=== PATIENT | female | born 1950 | race Caucasian/White ===

== ENCOUNTER 2017-02-12 08:23 | Inpatient (IN) | payer BC, MEDICARE ==
[~2017-02-12] VITALS: Ht 172.7 cm; Wt 110.0 kg
[~2017-02-12 08:23] MED LIST: ASPI-535; ATOR10TA23; CARB200T70; CELE200C; ESOM20CA; LEVO175T2; OXYB10TA; SOT120; TRAZ300T2; TRAZODONE
[2017-02-12] MEDS ORDERED: ONDANSETRON 4 MG INJ IV STA ×4 (08:27→12:45)
[2017-02-12] MEDS ORDERED: morphine 2 MG INJ IV STA ×3 (08:27→12:29)
[2017-02-12 08:55] LABS: ADD SCAN DIFF NO
[2017-02-12 08:59] LABS: BASOPHIL # 0.1 10^3/ul (0.0-0.1); BASOPHILS % 1.3 % (0.0-2.0); EOSINOPHILS # 0.2 10^3/ul (0.0-0.5); EOSINOPHILS % 4.4 % (0.0-7.0); HEMATOCRIT 38.3 % (37.0-47.0); HEMOGLOBIN 12.8 g/dl (12.0-16.0); LYMPHOCYTES % 21.4 % (15.0-51.0); MEAN CORPUSCULAR HEMOGLOBIN 32.6 pg (29.0-33.0); MEAN CORPUSCULAR HGB CONC 33.4 g/dl (32.0-37.0); MEAN CORPUSCULAR VOLUME 97.5 fl (82.0-101.0); MEAN PLATELET VOLUME 9.4 fl (7.4-10.4); MONOCYTE # 0.5 10^3/ul (0.3-0.9); MONOCYTES % 9.9 % (0.0-11.0); NEUTROPHIL # 2.9 10^3/ul (1.6-7.5); NEUTROPHILS % 62.8 % (39.0-77.0); PLATELET COUNT 219 10^3/UL (140-415); RED BLOOD COUNT 3.93 10^6/ul (4.20-5.40); RED CELL DISTRIBUTION WIDTH 12.7 % (11.5-14.5); WHITE BLOOD COUNT 4.5 10^3/ul (4.8-10.8)
[2017-02-12 09:12] LABS: INR 1.05; PROTIME 13.7 Sec (12.2-14.2); PT RATIO 1.1
[2017-02-12 09:13] LABS: PARTIAL THROMBOPLASTIN TIME 37.7 Sec (25.0-35.0)
[2017-02-12 09:23] LABS: ALBUMIN 3.9 g/dl (3.3-4.9); ALBUMIN/GLOBULIN RATIO 1.39; BILIRUBIN,INDIRECT 0.1 mg/dl (0-1.1); BILIRUBIN,TOTAL 0.1 mg/dl (0.2-1.3); CALCIUM 9.1 mg/dl (8.4-10.2); CREATININE 0.89 mg/dl (0.44-1.00); POTASSIUM 4.4 mmol/L (3.5-5.1); TOTAL PROTEIN 6.7 g/dl (6.1-8.1)
--- NOTE | 2017-02-12 09:36 | ERA ---
ER Documentation Chief Complaint Date/Time DATE: 02/12/17 TIME: 09:25 Chief Complaint Pt BIB RA with R ankle swelling, pain and difformity after GLF. HPI This is a 66-year-old female that was brought into the emergency department by EMS after she had a mechanical ground-level trip and fall just prior to arrival. The patient stated she slipped on her linoleum floor on a paper urination past for her dog. The patient states she did hit her head but did not lose consciousness. She fell on inverted right foot and is complaining of a significant amount of right lower extremity pain. The pain is 10 out of 10 in intensity. She has a previous ORIF of her right tibia. Her tetanus toxoid is up-to-date. She denies any neck pain. She has no numbness or tingling of her upper or lower extremities. She has had bilateral knee replacement several years prior to arrival. She was unable to bear weight on the right lower extremity after the fall. ROS All systems reviewed and are negative except as per history of present illness. Medications Home Meds Reported Medications Mirabegron (Myrbetriq) 50 Mg Tab.er.24h, 50 MG PO DAILY, TAB PT WILL BRING OWN MED 02/12/17 Lisinopril* (Lisinopril*) 20 Mg Tablet, 20 MG PO DAILY Y for ELEVATED BLOOD PRESSURE, #30 TAB IF BP IS OVER 140 02/12/17 Trazodone Hcl* (Trazodone Hcl*) 300 Mg Tablet, 300 MG PO QHS, #30 TAB 02/12/17 Sotalol Hcl* (Sotalol Hcl*) 160 Mg Tablet, 160 MG PO BID, TAB 11AM AND 11PM 02/12/17 Levothyroxine Sodium* (Synthroid*) 175 Mcg Tablet, 175 MCG PO BEFORE BREAKFAST, #30 TAB PT WANTS SYNTHROID 02/12/17 Esomeprazole Mag Trihydrate (Nexium) 20 Mg Capsule.dr, 20 MG PO DAILY, #30 CAP 02/12/17 Celecoxib* (Celebrex*) 200 Mg Capsule, 200 MG PO DAILY, CAP 02/12/17 Carbamazepine* (Carbamazepine* XR) 400 Mg Tab.er.12h, 400 MG PO Q12, #60 TAB.SA 02/12/17 Atorvastatin Calcium (Atorvastatin Calcium) 10 Mg Tablet, 10 MG PO QHS, #30 TAB 02/12/17 Discontinued Reported Medications [Trazodone] No Conflict Check 01/16/10 Trazodone Hcl* (Desyrel*) 300 Mg Tablet 01/16/10 Esomeprazole Mag Trihydrate (Nexium) 20 Mg Capsule. 01/16/10 Levothyroxine Sodium* (Synthroid*) 175 Mcg Tablet 01/16/10 Celecoxib* (Celebrex*) 200 Mg Capsule 01/16/10 Oxybutynin Chloride* (Ditropan* XL) 10 Mg/Bottle Tab.osm.24 01/16/10 Atorvastatin (Lipitor) 10 Mg Tablet 01/16/10 Aspirin Ec (Aspir 81) 81 Mg Tablet. 01/16/10 Carbamazepine* (Tegretol Xr*) 200 Mg Tab.sr.12h 01/16/10 Sotalol Hcl (Sotalol) 120 Mg Tablet 01/16/10 Allergies Allergies: Coded Allergies: heparin (Verified Allergy, Intermediate, hives, 02/12/17) latex (Verified Allergy, Mild, 02/12/17) PMhx/Soc History of Surgery: Yes (NOSE , PACEMAKER, VAHID KNEES) Anesthesia Reaction: No Hx Neurological Disorder: No Hx Respiratory Disorders: No Hx Cardiac Disorders: Yes (IRREGULAR HEARTBEAT,PACE MAKER) Hx Psychiatric Problems: No Hx Miscellaneous Medical Probl: Yes (osteoporosis) Hx Alcohol Use: Yes (socially) Hx Substance Use: No Hx Tobacco Use: No Smoking Status: Never smoker Physical Exam Vitals Vital Signs Date Time Temp Pulse Resp B/P Pulse Ox O2 Delivery O2 Flow Rate FiO2 02/12/17 13:23 98.2 77 18 141/96 100 Room Air 02/12/17 11:37 98.5 77 16 157/110 100 Room Air 02/12/17 08:30 98.4 77 18 185/115 100 Physical Exam Constitutional:Well-developed. Well-nourished. HEENT:Normocephalic. Atraumatic.Pupils were equal round reactive to light. Moist mucous membranes.No tonsillar exudates. Left scalp hematoma on the temporal region. Neck: No nuchal rigidity. No lymphadenopathy. No posterior cervical spine tenderness or step-offs. Respiratory: Not using accessory muscles of respiration.Lungs were clear to auscultation bilaterally. No rhonchi. No rales. No wheezing. Cardiovascular: Regular rate regular rhythm.No murmurs. No rubs were appreciated.S1, S2 normal. Distal pulses are palpable 2+ bilaterally. GI: Abdomen was soft. Nontender. Non Distended. No pulsatile abdominal masses or bruits. No rebound. No guarding. Bowel sounds were present and normal. Muscle skeletal: Full range of motion of the upper extremities bilaterally. Significant soft tissue swelling over the right medial malleolus with superficial abrasion. Ecchymosis around the right medial malleolus with positive tenderness. Lower extremities are equal length and symmetrical with no internal/external rotation no tenderness over the right fibular head. No midfoot tenderness on the right. No tenderness over the base of the fifth metatarsal on the right Skin: No petechia, no purpura. No lesions on the palms or the soles of the feet. No maculopapular rash. NEURO: Patient was alert, awake, orientated x3.No facial droop. Gait not observed as patient was unable to ambulate due to lower extremity injury.Speech had regular rate and rhythm. No focal neurological deficits. Result Diagram: 02/12/17 0845 02/12/17 0845 Results 24 hrs Laboratory Tests Test 02/12/17 08:45 White Blood Count 4.510^3/ul Red Blood Count 3.9310^6/ul Hemoglobin 12.8g/dl Hematocrit 38.3% Mean Corpuscular Volume 97.5fl Mean Corpuscular Hemoglobin 32.6pg Mean Corpuscular Hemoglobin Concent 33.4g/dl Red Cell Distribution Width 12.7% Platelet Count 37887^3/UL Mean Platelet Volume 9.4fl Neutrophils % 62.8% Lymphocytes % 21.4% Monocytes % 9.9% Eosinophils % 4.4% Basophils % 1.3% Nucleated Red Blood Cells % 0.0/100WBC Neutrophils # 2.910^3/ul Lymphocytes # 1.010^3/ul Monocytes # 0.510^3/ul Eosinophils # 0.210^3/ul Basophils # 0.110^3/ul Nucleated Red Blood Cells # 0.010^3/ul Prothrombin Time 13.7Sec Prothrombin Time Ratio 1.1 INR International Normalized Ratio 1.05 Activated Partial Thromboplast Time 37.7Sec Sodium Level 139mmol/L Potassium Level 4.4mmol/L Chloride Level 99mmol/L Carbon Dioxide Level 27mmol/L Anion Gap 17 Blood Urea Nitrogen 22mg/dl Creatinine 0.89mg/dl Glucose Level 95mg/dl Calcium Level 9.1mg/dl Total Bilirubin 0.1mg/dl Direct Bilirubin 0.00mg/dl Indirect Bilirubin 0.1mg/dl Aspartate Amino Transf (AST/SGOT) 19IU/L Alanine Aminotransferase (ALT/SGPT) 28IU/L Alkaline Phosphatase 57IU/L Total Protein 6.7g/dl Albumin 3.9g/dl Globulin 2.80g/dl Albumin/Globulin Ratio 1.39 Current Medications Medications (Trade) Dose Ordered Sig/Kurtis Route PRN Reason Start Time Stop Time Status Last Admin Dose Admin Morphine Sulfate (morphine) 2 mg ONCE STAT IV 02/12/17 08:27 02/12/17 08:31 DC 02/12/17 08:46 Ondansetron HCl (Zofran Inj) 4 mg ONCE STAT IV 02/12/17 08:27 02/12/17 08:31 DC 02/12/17 08:46 Clonidine (Catapres) 0.1 mg ONCE ONCE PO 02/12/17 10:30 02/12/17 10:35 DC 02/12/17 10:48 Morphine Sulfate (morphine) 2 mg ONCE STAT IV 02/12/17 10:37 02/12/17 10:42 DC 02/12/17 10:47 Ondansetron HCl (Zofran Inj) 4 mg ONCE STAT IV 02/12/17 10:37 02/12/17 10:42 DC 02/12/17 10:47 Sotalol HCl (Betapace) 160 mg ONCE ONCE PO 02/12/17 11:00 02/12/17 11:01 Cancel Lidocaine (Lidocaine 2% Urojet) 20 ml ONCE ONCE MM 02/12/17 11:00 02/12/17 11:01 DC 02/12/17 11:00 Morphine Sulfate (morphine) 2 mg ONCE STAT IV 02/12/17 12:29 02/12/17 12:31 DC 02/12/17 12:34 Ondansetron HCl (Zofran Inj) 4 mg ONCE STAT IV 02/12/17 12:29 02/12/17 12:31 DC Hydromorphone HCl (Dilaudid) 1 mg ONCE STAT IV 02/12/17 12:45 02/12/17 12:46 DC 02/12/17 13:35 Ondansetron HCl (Zofran Inj) 4 mg ONCE STAT IV 02/12/17 12:45 02/12/17 12:46 DC 02/12/17 13:35 Ondansetron HCl (Zofran Inj) 4 mg ER BRIDGE PRN IV NAUSEA AND/OR VOMITING 02/12/17 13:00 02/13/17 12:59 Acetaminophen (Tylenol Tab) 650 mg ER BRIDGE PRN PO MILD PAIN/FEVER 02/12/17 13:00 02/13/17 12:59 Ondansetron HCl (Zofran Inj) 4 mg BRIDGE ORDER PRN IV NAUSEA AND/OR VOMITING 02/12/17 13:00 02/13/17 12:59 Acetaminophen (Tylenol Tab) 650 mg ER BRIDGE PRN PO MILD PAIN/FEVER 02/12/17 13:00 02/13/17 12:59 Sotalol HCl (Betapace) 160 mg ONCE ONCE PO 02/12/17 13:00 02/12/17 13:01 DC 02/12/17 13:23 Procedures/MDM This patient presented to the emergency department after she had a ground-level trip and fall. The patient was immediately placed in a monitoring analyst continuous pulse oximetry and IV access was established by nursing staff. I obtained radiographic imaging the patient's tibia and fibula as well as three- view radiographs of the patient's ankle reviewed by myself the radiologist which indicated the followin. Comminuted acute oblique fracture seen involve the distal third of the right fibular shaft superior to the compression plate and internally fixed is a healed fracture more distally. 2. Oblique fracture through base of medial malleolus distracted longitudinally by 4 mm. The patient received intravenous morphine and Zofran for analgesic control. She has a history of atrial fibrillation but was rate controlled. She indicates she takes 160 mg of sotalol twice a day and requested her medication that she had not taken anything prior to arrival. This was provided in the emergency department for the patient. The patient was unable to ambulate given the severity of her symptoms I did feel required admission for definitive treatment with an orthopedic surgeon. She has seen Dr. Jay Yang in the past and therefore I have placed a call to him to see if he would be willing to be consulted. He kindly stated that he would be willing to see the patient in his office in the next 48 hours. I informed the patient of this and she attempted to ambulate but was unable to do this. She stated the pain was too intense and it was 10 out of 10 in intensity and therefore was given IV Dilaudid. She had a short leg posterior cast placed and afterwards reevaluated by myself and there was no evidence of compartment syndrome and she was neurovascularly intact. Given that the patient had significant pain with inability to ambulate I re-phoned Dr. Rowe office and spoke with the physician assistant toddler teacher. She returned my call promptly and stated that the patient is to be admitted to [facility] under the care of Dr. Quintanilla for definitive treatment. 12 Lead EKG tracing ordered and reviewed by myself showed: Normal sinus rhythm of 76 bpm and no arrhythmia. MS interval prolonged at 232 ms and always consistent with first-degree AV block QRS duration normal. No ST segment elevation No ST segment depression. No changes consistent with acute ischemia. Departure Diagnosis: Primary Impression: Head injury, acute, without loss of consciousness Qualified Code: S09.90XA - Head injury, acute, without loss of consciousness, initial encounter Additional Impression: Fracture of ankle, right, closed Qualified Code: S82.891A - Fracture of ankle, right, closed, initial encounter Condition: Serious SAMAN BRITO Feb 12, 2017 09:35
--- NOTE | 2017-02-12 10:20 | RADRPT ---
PROCEDURE: XR Tibia and Fibula. CLINICAL INDICATION: Status post fall. TECHNIQUE: Two views of the right tibia and fibula are available for review. COMPARISON: None available FINDINGS: There is a mildly displaced oblique fracture of the distal right fibular diaphysis. Fixation plate and screws are seen along the distal fibula and lateral malleolus. The tibia appears intact. Fixat ion hardware is noted in the medial femoral condyle. Soft tissues are within normal limits. . IMPRESSION: 1. Mildly displaced fracture of the right distal fibula. 2. Fixation hardware at the lateral malleolus and medial femoral condyle.. RPTAT: AA .Stephan Zuniga MD, MD Date Time Electronically viewed and signed by .Stephan Zuniga MD, MD on 02/12/2017 10:19 .L/
--- NOTE | 2017-02-12 10:24 | RADRPT ---
PROCEDURE: XR Right Ankle CLINICAL INDICATION: Fall TECHNIQUE: Standard 3 view radiographs were submitted. COMPARISON: None FINDINGS: Osseous structures: A compressions plate and screws are seen internally fixing a healed distal fibul ar fracture. Superior to the compression plate there is a comminuted oblique fracture involving the distal third of the right fibular shaft with the main distal fragment displaced ventrally by approx imate 4 mm and with an intermediate fragment displaced dorsally by approximate 2 mm. There is an ob lique fracture through the base of the medial malleolus with the medial malleolar fragment distracte d longitudinally by approximately 4 mm. Joint spaces: Well maintained with no significant erosions or spurring evident. Soft tissues: There is diffuse soft tissue swelling. IMPRESSION: 1. Comminuted acute oblique fracture seen involve the distal third of the right fibular shaft super ior to the compression plate and internally fixed is a healed fracture more distally. 2. Oblique fracture through base of medial malleolus distracted longitudinally by 4 mm. Physician Carrington Date Time Electronically viewed and signed by Physician Carrington on 02/12/2017 10:24 /
[2017-02-12] MEDS ORDERED: SOTALOL 80 MG TAB PO ONE ×2 (11:00→13:00)
[2017-02-12] MEDS ORDERED: LIDOCAINE 2% 20 ML UROJET SYRINGE MM ONE (11:00)
[2017-02-12] MEDS ORDERED: ATOR10TA65 PO (12:04)
[2017-02-12] MEDS ORDERED: CARB400T4 PO (12:05)
[2017-02-12] MEDS ORDERED: CELE200C PO (12:05)
[2017-02-12] MEDS ORDERED: ESOM20CA PO (12:06)
[2017-02-12] MEDS ORDERED: LEVO175T2 PO (12:06)
[2017-02-12] MEDS ORDERED: SOTA160T PO (12:07)
[2017-02-12] MEDS ORDERED: TRAZ300T15 PO (12:08)
[2017-02-12] MEDS ORDERED: LISI20TA11 PO (12:08)
[2017-02-12] MEDS ORDERED: MIRA50TA PO (12:10)
[2017-02-12] MEDS ORDERED: HYDROmorphONE 1 MG/ML SYG IV STA (12:45)
[2017-02-12] MEDS ORDERED: ACETAMINOPHEN 325 MG TAB PO PRN ×2 (13:00)
[2017-02-12] MEDS ORDERED: ONDANSETRON 4 MG INJ IV PRN ×2 (13:00)
[2017-02-12 13:23] VITALS: TEMP 98.2
--- NOTE | 2017-02-12 14:23 | RADRPT ---
PROCEDURE: CT Brain without contrast. CLINICAL INDICATION: Trauma TECHNIQUE: CT scan of the brain was performed on a multidetector high-resolution CT scan. Axial im aging was obtained of the brain without contrast administration. Coronal and sagittal reformatted i mages were obtained from the axial source images. Standard CT scan of the head without contrast prot ocols were performed. The total exam CTDI equals 45.01 mGy and the total exam DLP equals 720.23 mGy-cm. One or more of the following dose reduction techniques were used: - Automated exposure control. - Adjustment of the mA and/or kV according to patient size. Use of iterative reconstruction technique. COMPARISON: None. FINDINGS: The ventricular system and peripheral CSF spaces are proportionate prominent consistent with mild to moderate generalized cerebral volume loss. There is mild periventricular deep white matter changes that is nonspecific and consistent with chronic microvascular ischemic disease. Negative for intra cranial masses hemorrhages or midline shift. The preciado-white matter junction is unremarkable. Paranas al sinuses and mastoids are unremarkable. The bones and calvarium are intact. IMPRESSION: 1. No evidence intracranial masses hemorrhages midline shift. 2. Mild to moderate generalized cerebral volume loss and mild nonspecific chronic microvascular isc hemic disease. RPTAT:AAJJ Physician Alton Date Time Electronically viewed and signed by Physician Alton on 02/12/2017 14:22 /
[2017-02-12] MEDS ORDERED: HYDROmorphONE 0.2 MG/ML PCA IV SCH (15:30)
[2017-02-12] MEDS ORDERED: SOD CHLORIDE 0.9% 1,000 ML IV SCH (16:00)
[2017-02-12 16:49] VITALS: BP 172/86; RESP 18; Ht 172.7 cm; Wt 110.0 kg
[2017-02-12] MEDS ORDERED: CEFAZOLIN 2 GM/50 ML (PMX) 50 ML IVPB STA (17:01)
--- NOTE | 2017-02-12 18:42 | CONS ---
Date/Time of Note Date/Time of Note DATE: 02/12/17 TIME: 18:10 Assessment/Plan Assessment/Plan Chief Complaint/Hosp Course Impression: 1. Ground-level fall today with right ankle fracture. The patient has a distal fracture of the right fibula and of the medial malleolus. She has a previous history of an ORIF of the right tibia. 2. Atrial fibrillation, now in sinus rhythm 3. Abnormal EKG with inverted T waves. Her EKG is unchanged from an EKG of February 08, 2009 which the patient showed me tonight. 4. Hypertension 5. Cardiac pacemaker 6. Hyperlipidemia 7. Hypothyroidism on replacement therapy 8. Generalized anxiety disorder 9. History of urinary incontinence 10. Osteoporosis 11. Multiple orthopedic surgeries in the past on both lower extremities. 12. Nausea, will change to morphine for pain, which she has tolerated previously Plan: 1. Resume some routine medications 2. Cardiology consultation called. 3. I will follow the patient along with you Problems: Consultation Date/Type/Reason Admit Date/Time Feb 12, 2017 at 12:48 Date of Consultation: Feb 12, 2017 Type of Consultation: medicine Reason for Consultation Atrial fibrillation, hypertension, pacemaker, hyperlipidemia, generalized anxiety disorder. Referring Provider: JAY PEPE MD I am seeing this patient today at the request of Dr. Jay Pepe . This 66- year-old female was admitted through the emergency room today after having a ground-level fall at home and fracturing her right ankle. The patient slipped and fell on a paper on the floor that her dog used for urination. The patient did hit her head but did not lose consciousness. She fell on an inverted right foot and had pain immediately. An x-ray in the emergency room did show that she had a fracture of the right distal fibula and the right medial malleolus. The patient has a history of a right tibial fracture status post ORIF. The patient is awake and alert at this time. She is able to give me a complete history including past medical history, current medication. The patient complains of nausea. She denies any chest pain or shortness of breath. Eyes: no complaints ENT: no complaints Respiratory: no complaints Cardiovascular: no complaints Gastrointestinal: nausea Genitourinary: no complaints Musculoskeletal: bone/joint pain Skin: no complaints Neurologic: dizziness Past Medical History Past medical history is remarkable for the following: Hypertension, atrial fibrillation, cardiac pacemaker, hyperlipidemia, generalized anxiety disorder , urinary incontinence, gastroesophageal reflux disease, osteoporosis Past Surgical History Her past surgical history is remarkable for the following bladder surgery 5, skin cancer over left eye, nasal surgery, spinal injury with repair, tonsillectomy, right ankle fracture with ORIF , left ankle surgery , bilateral kneecaps removed Family History Significant Family History: no pertinent family hx Social History Alcohol Use: occasionally Smoking Status: Never smoker Drug Use: none Exam/Review of Systems Vital Signs Vitals Vital Signs Date Time Temp Pulse Resp B/P Pulse Ox O2 Delivery O2 Flow Rate FiO2 02/12/17 13:23 98.2 77 18 141/96 100 Room Air Exam She has a large splint on her right ankle with an Shakir bandage. Constitutional: alert, obese Psych: nl mood/affect, no complaints Head: atraumatic, normocephalic Eyes: EOMI, PERRL, nl conjunctiva, nl lids ENMT: nl external ears & nose, nl lips & teeth, nl nasal mucosa & septum Neck: non-tender, supple Respiratory: clear to auscultation, normal air movement Cardiovascular: regular rate and rhythm Gastrointestinal: non-tender, soft Neurological: TALENT ACQUISITION DIRECTOR II-XII intact, nl mental status, nl speech, nl strength Results Result Diagram: 02/12/17 0845 02/12/17 0845 Results 24 hrs Laboratory Tests Test 02/12/17 08:45 White Blood Count 4.5 L Red Blood Count 3.93 L Hemoglobin 12.8 Hematocrit 38.3 Mean Corpuscular Volume 97.5 Mean Corpuscular Hemoglobin 32.6 Mean Corpuscular Hemoglobin Concent 33.4 Red Cell Distribution Width 12.7 Platelet Count 219 Mean Platelet Volume 9.4 Neutrophils % 62.8 Lymphocytes % 21.4 Monocytes % 9.9 Eosinophils % 4.4 Basophils % 1.3 Nucleated Red Blood Cells % 0.0 Neutrophils # 2.9 Lymphocytes # 1.0 Monocytes # 0.5 Eosinophils # 0.2 Basophils # 0.1 Nucleated Red Blood Cells # 0.0 Prothrombin Time 13.7 Prothrombin Time Ratio 1.1 INR International Normalized Ratio 1.05 Activated Partial Thromboplast Time 37.7 H Sodium Level 139 Potassium Level 4.4 Chloride Level 99 Carbon Dioxide Level 27 Anion Gap 17 H Blood Urea Nitrogen 22 H Creatinine 0.89 Glucose Level 95 Calcium Level 9.1 Total Bilirubin 0.1 L Direct Bilirubin 0.00 Indirect Bilirubin 0.1 Aspartate Amino Transf (AST/SGOT) 19 Alanine Aminotransferase (ALT/SGPT) 28 Alkaline Phosphatase 57 Total Protein 6.7 Albumin 3.9 Globulin 2.80 Albumin/Globulin Ratio 1.39 Medications Medications Current Medications Hydromorphone HCl (Dilaudid ROLLWAY WORKER) MG/HR CONTINUOUS RATE ... Q4PCA IV Last administered on 02/12/17 16:21; Admin Dose 6 MG; Start 02/12/17 at 15:30 Oxycodone/ Acetaminophen (Percocet (5/ 325)) 1 tab Q4H PRN PO PAIN; Start 02/12 at 15:30 Oxycodone/ Acetaminophen 2 tab 2 tab Q4H PRN PO PAIN; Start 02/12/17 at 15:30 Sodium Chloride (NS) 1,000 ml @ 30 mls/hr Q24H IV Last administered on 16:16; Admin Dose 30 MLS/HR; Start 02/12/17 at 16:00 Atorvastatin Calcium (Lipitor) 10 mg QHS PO ; Start 02/12/17 at 21:00; Status UNV Carbamazepine (Tegretol Xr) 400 mg Q12 PO ; Start 02/12/17 at 21:00; Status UNV Celecoxib (Celebrex) 200 mg DAILY PO ; Start 02/13/17 at 09:00; Status UNV Sotalol HCl (Betapace) 160 mg BID PO ; Start 02/12/17 at 21:00; Status UNV Trazodone HCl (Desyrel) 300 mg QHS PO ; Start 02/12/17 at 21:00; Status UNV Miscellaneous Information 20 mg DAILY PO ; Start 02/13/17 at 09:00; Status UNV CHUCK MCCRACKEN MD Feb 12, 2017 18:21
--- NOTE | 2017-02-12 19:00 | RADRPT ---
PROCEDURE: XR Right Ankle. CLINICAL INDICATION: Right ankle pain. Fracture. Post reduction. TECHNIQUE: 3 views. Frontal, lateral, and oblique. COMPARISON: Prior study done earlier the same day. FINDINGS: As seen previously, there is a lateral plate and multiple screws transfixing the distal fibula. Sup erior to the plate, there is an acute oblique nondisplaced fracture of the fibula. There is also an acute transverse fracture of the medial malleolus with overlying soft tissue swelling and minimal d isplacement. There is no other fracture or dislocation. Bone detail is obscured by the overlying cast. There is no lytic or blastic lesion. IMPRESSION: 1. Post reduction images with improved alignment. 2. Bone detail obscured by the cast. RPTAT: QQ .Andrea Lopez MD, Date Time Electronically viewed and signed by .Andrea Lopez MD, on 02/12/2017 19:00 .R/
[2017-02-12 19:40] VITALS: BP 183/86; RESP 20
[2017-02-12] MEDS: DEXTROSE 5%-0.45% NACL 1,000 ML IV SCH (19:41)
[2017-02-12] MEDS: morphine 1 MG/ML 30 ML (PCA) IV SCH (19:47)
[2017-02-12] MEDS: carBAMAZepine (XR) 100 MG TABSR PO SCH (20:28)
[2017-02-12] MEDS ORDERED: carBAMAZepine (XR) 200 MG TABSR PO SCH (21:00)
[2017-02-12] MEDS: traZODone 100 MG TAB PO SCH (21:00)
--- NOTE | 2017-02-12 21:26 | RADRPT ---
PROCEDURE: XR Chest. CLINICAL INDICATION: Cough. TECHNIQUE: Single frontal view. COMPARISON: 12/07/2012. FINDINGS: The lungs are clear. The heart is enlarged. There is a dual lead left-sided permanent pacemaker. There is no pleural effusion. There is no pneumothorax. IMPRESSION: 1. Cardiomegaly. 2. Permanent pacemaker. 3. Clear lungs. RPTAT: QQ .Andrea Lopez MD, MD Date Time Electronically viewed and signed by .Andrea Lopez MD, on 02/12/2017 21:26 .R/
[2017-02-12] MEDS: ATORVASTATIN 10 MG TAB PO SCH (22:56)
[2017-02-12 23:00] VITALS: BP 139/83; PULSE 78
[2017-02-12] MEDS: SOTALOL 80 MG TAB PO SCH (23:00)
[2017-02-13 00:22] VITALS: BP 164/80; RESP 21
[2017-02-13 05:53] LABS: ADD SCAN DIFF NO
[2017-02-13 05:56] LABS: BASOPHILS % 0.6 % (0.0-2.0); EOSINOPHILS # 0.1 10^3/ul (0.0-0.5); EOSINOPHILS % 1.1 % (0.0-7.0); HEMATOCRIT 37.1 % (37.0-47.0); HEMOGLOBIN 12.3 g/dl (12.0-16.0); LYMPHOCYTES # 1.3 10^3/ul (0.8-2.9); LYMPHOCYTES % 20.7 % (15.0-51.0); MEAN CORPUSCULAR HEMOGLOBIN 32.5 pg (29.0-33.0); MEAN CORPUSCULAR HGB CONC 33.2 g/dl (32.0-37.0); MEAN CORPUSCULAR VOLUME 97.9 fl (82.0-101.0); MEAN PLATELET VOLUME 9.9 fl (7.4-10.4); MONOCYTE # 0.9 10^3/ul (0.3-0.9); MONOCYTES % 14.4 % (0.0-11.0); NEUTROPHILS % 62.9 % (39.0-77.0); PLATELET COUNT 205 10^3/UL (140-415); RED BLOOD COUNT 3.79 10^6/ul (4.20-5.40); RED CELL DISTRIBUTION WIDTH 12.7 % (11.5-14.5); WHITE BLOOD COUNT 6.3 10^3/ul (4.8-10.8)
[2017-02-13] MEDS: LEVOTHYROXINE 175 MCG TAB PO SCH (06:11)
[2017-02-13] MEDS: PANTOPRAZOLE (EC) 40 MG TAB PO SCH (06:11)
[2017-02-13 06:18] LABS: ALBUMIN 3.5 g/dl (3.3-4.9); ALBUMIN/GLOBULIN RATIO 1.25; BILIRUBIN,INDIRECT 0.3 mg/dl (0-1.1); BILIRUBIN,TOTAL 0.3 mg/dl (0.2-1.3); CALCIUM 9.4 mg/dl (8.4-10.2); CREATININE 0.72 mg/dl (0.44-1.00); MAGNESIUM 1.7 mg/dl (1.7-2.5); POTASSIUM 4.2 mmol/L (3.5-5.1); TOTAL PROTEIN 6.3 g/dl (6.1-8.1)
--- NOTE | 2017-02-13 06:50 | PN ---
Date/Time of Note Date/Time of Note DATE: 02/13/17 TIME: 06:47 Assessment/Plan VTE Prophylaxis VTE Prophylaxis Intervention: ambulation, SCD's Lines/Catheters IV Catheter Type (from Nrs): Peripheral IV Urinary Cath still in place: No Assessment/Plan Assessment/Plan 66 F s/p fall yesterday with R bimalleolar ankle fx - PT, NWB RLE - Per patient, cast to be changed today - Likely d/c today after above with plans to return next week for skin/swelling check and surgery - DVT ppx with ambulation and scd's - reg diet Subjective 24 Hr Interval Summary Free Text/Dictation No acute issues. Exam/Review of Systems Vital Signs Vitals Vital Signs Date Time Temp Pulse Resp B/P Pulse Ox O2 Delivery O2 Flow Rate FiO2 02/13/17 00:22 98.5 76 21 164/80 98 02/12/17 16:49 Room Air Intake and Output 02/12/17 02/12/17 02/13/17 15:00 23:00 07:00 Intake Total 250 ml 1300 ml Output Total 1700 ml 2500 ml Balance -1450 ml -1200 ml Exam RLE: elevated. splint intact. DF/PF toes, wwp. sensation intact dorsal/plantar toes. Results Result Diagram: 02/13/17 0459 02/12/17 0845 Results 24 hrs Laboratory Tests Test 02/12/17 08:45 02/13/17 04:59 White Blood Count 4.5 L 6.3 # Red Blood Count 3.93 L 3.79 L Hemoglobin 12.8 12.3 Hematocrit 38.3 37.1 Mean Corpuscular Volume 97.5 97.9 Mean Corpuscular Hemoglobin 32.6 32.5 Mean Corpuscular Hemoglobin Concent 33.4 33.2 Red Cell Distribution Width 12.7 12.7 Platelet Count 219 205 Mean Platelet Volume 9.4 9.9 Neutrophils % 62.8 62.9 Lymphocytes % 21.4 20.7 Monocytes % 9.9 14.4 H Eosinophils % 4.4 1.1 Basophils % 1.3 0.6 Nucleated Red Blood Cells % 0.0 0.0 Neutrophils # 2.9 4.0 Lymphocytes # 1.0 1.3 Monocytes # 0.5 0.9 Eosinophils # 0.2 0.1 Basophils # 0.1 0.0 Nucleated Red Blood Cells # 0.0 0.0 Prothrombin Time 13.7 Prothrombin Time Ratio 1.1 INR International Normalized Ratio 1.05 Activated Partial Thromboplast Time 37.7 H Sodium Level 139 Potassium Level 4.4 Chloride Level 99 Carbon Dioxide Level 27 Anion Gap 17 H Blood Urea Nitrogen 22 H Creatinine 0.89 Glucose Level 95 Calcium Level 9.1 Total Bilirubin 0.1 L Direct Bilirubin 0.00 Indirect Bilirubin 0.1 Aspartate Amino Transf (AST/SGOT) 19 Alanine Aminotransferase (ALT/SGPT) 28 Alkaline Phosphatase 57 Total Protein 6.7 Albumin 3.9 Globulin 2.80 Albumin/Globulin Ratio 1.39 Medications Medications Current Medications Oxycodone/ Acetaminophen (Percocet (5/ 325)) 1 tab Q4H PRN PO PAIN; Start 02/12 at 15:30 Oxycodone/ Acetaminophen (Percocet (5/ 325)) 2 tab Q4H PRN PO PAIN; Start 02/12 at 15:30 Atorvastatin Calcium (Lipitor) 10 mg QHS PO Last administered on 02/12/17 22: 56; Admin Dose 10 MG; Start 02/12/17 at 21:00 Sotalol HCl (Betapace) 160 mg BID PO Last administered on 02/12/17 23:00; Admin Dose 160 MG; Start 02/12/17 at 21:00 Trazodone HCl (Desyrel) 300 mg QHS PO ; Start 02/12/17 at 21:00 Pantoprazole (Protonix Tab) 40 mg DAILY@06 PO Last administered on 02/13/17 06 :11; Admin Dose 40 MG; Start 02/13/17 at 06:00 Lisinopril (Zestril) 20 mg DAILY PO ; Start 02/13/17 at 09:00 Metoclopramide HCl (Reglan) 10 mg Q6H PRN IV NAUSEA; Start 02/12/17 at 18:30 Carbamazepine (Tegretol Xr) 400 mg Q12 PO Last administered on 02/12/17 20:28 ; Admin Dose 400 MG; Start 02/12/17 at 21:00 Morphine Sulfate MG/HR CONTINUOUS RATE 1... Q4PCA IV Last administered on 02/12 19:47; Admin Dose 30 MG; Start 02/12/17 at 19:00 Dextrose/Sodium Chloride (D5-1/2ns) 1,000 ml @ 80 mls/hr [id number] IV Last administered on 02/12/17t 19:41; Admin Dose 80 MLS/HR; Start 02/12/17 at 19:00 Clonidine (Catapres) 0.1 mg Q6H PRN PO ELEVATED BLOOD PRESSURE; Start 02/12/17 at 19:00 IFRAH SPRINGER MD Feb 13, 2017 06:50
[2017-02-13 07:11] LABS: T3 UPTAKE 40.4 % (23.5-40.5)
--- NOTE | 2017-02-13 07:52 | CONS ---
Date/Time of Note Date/Time of Note DATE: 02/13/17 TIME: 07:49 Assessment/Plan Assessment/Plan Chief Complaint/Hosp Course 1. Ground-level fall today with right ankle fracture. The patient has a distal fracture of the right fibula and of the medial malleolus. plan for surgery as outpt. denies syncope 2. PAF- not on anticoag per primary windows laptop technician, [id number] score of 3 based on female, age, htn., current nsr, denies recent symptoms 3. Abnl ekg- nsr 1st degree avb, twi inferior, lateral leads. no change from previous. obtain osh recrds 4. Hypertension 5. Cardiac pacemaker - cont home meds - anticoag per primary windows laptop technician - obtain records from primary windows laptop technician Problems: Consultation Date/Type/Reason Admit Date/Time Feb 12, 2017 at 12:48 Eyes: no complaints ENT: no complaints Respiratory: no complaints Cardiovascular: no complaints Gastrointestinal: nausea Genitourinary: no complaints Musculoskeletal: bone/joint pain Skin: no complaints Neurologic: dizziness Psychological: nl mood/affect, no complaints Social History Alcohol Use: occasionally Smoking Status: Never smoker Drug Use: none Exam/Review of Systems Vital Signs Vitals Vital Signs Date Time Temp Pulse Resp B/P Pulse Ox O2 Delivery O2 Flow Rate FiO2 02/13/17 00:22 98.5 76 21 164/80 98 02/12/17 16:49 Room Air Intake and Output 02/12/17 02/12/17 02/13/17 15:00 23:00 07:00 Intake Total 250 ml 1300 ml Output Total 1700 ml 2500 ml Balance -1450 ml -1200 ml Results Result Diagram: 02/13/17 0459 02/13/17 0458 Results 24 hrs Laboratory Tests Test 02/12/17 08:45 02/13/17 04:58 02/13/17 04:59 White Blood Count 4.5 L 6.3 # Red Blood Count 3.93 L 3.79 L Hemoglobin 12.8 12.3 Hematocrit 38.3 37.1 Mean Corpuscular Volume 97.5 97.9 Mean Corpuscular Hemoglobin 32.6 32.5 Mean Corpuscular Hemoglobin Concent 33.4 33.2 Red Cell Distribution Width 12.7 12.7 Platelet Count 219 205 Mean Platelet Volume 9.4 9.9 Neutrophils % 62.8 62.9 Lymphocytes % 21.4 20.7 Monocytes % 9.9 14.4 H Eosinophils % 4.4 1.1 Basophils % 1.3 0.6 Nucleated Red Blood Cells % 0.0 0.0 Neutrophils # 2.9 4.0 Lymphocytes # 1.0 1.3 Monocytes # 0.5 0.9 Eosinophils # 0.2 0.1 Basophils # 0.1 0.0 Nucleated Red Blood Cells # 0.0 0.0 Prothrombin Time 13.7 Prothrombin Time Ratio 1.1 INR International Normalized Ratio 1.05 Activated Partial Thromboplast Time 37.7 H Sodium Level 139 137 Potassium Level 4.4 4.2 Chloride Level 99 95 L Carbon Dioxide Level 27 30 Anion Gap 17 H 16 Blood Urea Nitrogen 22 H 16 Creatinine 0.89 0.72 Glucose Level 95 113 Calcium Level 9.1 9.4 Total Bilirubin 0.1 L 0.3 Direct Bilirubin 0.00 0.00 Indirect Bilirubin 0.1 0.3 Aspartate Amino Transf (AST/SGOT) 19 18 Alanine Aminotransferase (ALT/SGPT) 28 19 Alkaline Phosphatase 57 53 Total Protein 6.7 6.3 Albumin 3.9 3.5 Globulin 2.80 2.80 Albumin/Globulin Ratio 1.39 1.25 Magnesium Level 1.7 Free Thyroxine Index 2.06 Thyroxine (T4) 5.1 L Triiodothyronine (T3) Uptake 40.4 Parathyroid Hormone (Intact) Medications Medications Current Medications Oxycodone/ Acetaminophen (Percocet (5/ 325)) 1 tab Q4H PRN PO PAIN; Start 02/12 at 15:30 Oxycodone/ Acetaminophen (Percocet (5/ 325)) 2 tab Q4H PRN PO PAIN; Start 02/12 at 15:30 Atorvastatin Calcium (Lipitor) 10 mg QHS PO Last administered on 02/12/17 22: 56; Admin Dose 10 MG; Start 02/12/17 at 21:00 Sotalol HCl (Betapace) 160 mg BID PO Last administered on 02/12/17 23:00; Admin Dose 160 MG; Start 02/12/17 at 21:00 Trazodone HCl (Desyrel) 300 mg QHS PO ; Start 02/12/17 at 21:00 Pantoprazole (Protonix Tab) 40 mg DAILY@06 PO Last administered on 02/13/17 06 :11; Admin Dose 40 MG; Start 02/13/17 at 06:00 Lisinopril (Zestril) 20 mg DAILY PO ; Start 02/13/17 at 09:00 Metoclopramide HCl (Reglan) 10 mg Q6H PRN IV NAUSEA; Start 02/12/17 at 18:30 Carbamazepine (Tegretol Xr) 400 mg Q12 PO Last administered on 02/12/17 20:28 ; Admin Dose 400 MG; Start 02/12/17 at 21:00 Morphine Sulfate MG/HR CONTINUOUS RATE 1... Q4PCA IV Last administered on 02/12 19:47; Admin Dose 30 MG; Start 02/12/17 at 19:00 Dextrose/Sodium Chloride (D5-1/2ns) 1,000 ml @ 80 mls/hr [id number] IV Last administered on 02/12/17 19:41; Admin Dose 80 MLS/HR; Start 02/12/17 at 19:00 Clonidine (Catapres) 0.1 mg Q6H PRN PO ELEVATED BLOOD PRESSURE; Start 02/12/17 at 19:00 SAMANTHA MAURER Feb 13, 2017 07:51
[2017-02-13] MEDS: DEXTROSE 5%-0.45% NACL 1,000 ML IV SCH ×2 (08:08→19:51)
[2017-02-13 08:13] VITALS: BP 163/101; RESP 20
[2017-02-13 08:29] VITALS: BP 181/86; PULSE 76; RESP 18
[2017-02-13] MEDS: METOCLOPRAMIDE 10 MG INJ IV PRN ×2 (08:50→15:25)
[2017-02-13] MEDS: LISINOPRIL 20 MG TAB PO SCH (08:52)
[2017-02-13] MEDS: SOTALOL 80 MG TAB PO SCH ×2 (08:54→20:56)
[2017-02-13] MEDS: carBAMAZepine (XR) 100 MG TABSR PO SCH ×2 (08:57→20:56)
[2017-02-13] MEDS ORDERED: CELECOXIB 200 MG CAP PO SCH (09:00)
--- NOTE | 2017-02-13 10:22 | HP ---
DATE OF ADMISSION: 02/12/2017 CHIEF COMPLAINT: Right ankle pain. HISTORY OF PRESENT ILLNESS: The patient is a 66-year-old female well known to me with pain in her right ankle. The patient was injured when she slipped today and fell. She was brought to the [facility] emergency room. She was found to have a fracture of her right ankle. I was called. We admitted her for evaluation and treatment. Currently complains of moderate to severe pain, alleviated with her morphine B[employer] pump. The pain is all localized to the right ankle. She has no pain anywhere else. No pain in her left ankle on which I previously did an arthroscopic fusion. PAST MEDICAL HISTORY: Hypertension, hyperlipidemia, urinary dysfunction, hypothyroidism, hyperparathyroidism, acid reflux. History of atrial fibrillation, rate controlled. The patient has a pacemaker implantation. ALLERGIES: LATEX. MEDICATIONS: 1. Oxycodone. 2. Lipitor. 3. Tegretol. 4. Celebrex. 5. Betapace. 6. Desyrel. PAST SURGICAL HISTORY: Arthroscopic left ankle fusion by myself in 2012. She also previously had bilateral ankle ORIFs. She has had a femur fracture and bilateral patellectomies. FAMILY HISTORY: Noncontributory. SOCIAL HISTORY: She is . She drinks moderately. She is a nonsmoker. She lives with her family. PHYSICAL EXAMINATION: GENERAL APPEARANCE: A pleasant female, oriented x3. She was in a splint from the emergency room. VITAL SIGNS: Blood pressure 141/96, pulse 78, respirations 18. HEENT: She has no trauma to the head. Pupils are equal, round, and reactive to light. Mouth and nose are moist. NECK: Nontender. LUNGS: Clear to auscultation. HEART: Cardiac rhythm is regular. ABDOMEN: She has no GI discomfort. ORTHOPEDIC EXAM: She can move the toes well. She does have a small abrasion along the medial malleolus in the area of the fracture. She has healed scars in her ankle from previous surgery with obvious loss of motion and strength. Neurologically intact. The left ankle has healed incisions and has an arthrodesis in the left ankle. DATA: X-rays done at [facility] show a fracture of the medial malleolus. They also show she broke, superior to her previous plate, and has an oblique comminuted fracture of her fibula, fairly high up with subluxation and widening of her syndesmosis. ASSESSMENT: 1. Complex fracture dislocation of her right ankle with a fracture of the fibula above a previous plate. 2. Status post arthroscopic arthrodesis of the left ankle 2012. 3. Status post open reduction internal fixation both ankles in the past. 4. History of cardiac pacemaker in place. 5. History of hypertension. 6. History of hyperlipidemia. 7. History of hypothyroidism and hyperparathyroidism. 8. History of atrial fibrillation. PLAN: 1. A new splint was applied. We will put an even softer, more comfortable splint tomorrow. 2. Ice and elevation. 3. B[employer] pain pump. 4. Discharge planning to evaluate the patient since we are probably going to have to wait until the swelling goes down and abrasion resolves a little before doing her surgery. The patient will require open reduction internal fixation of a complex fracture dislocation of her right ankle. Blood will be drawn. Will check everything including her parathyroid and thyroid levels, vitamin D3 5. levels. Will have cardiology clearance with Dr. Becker to see her from medical standpoint. 6. History of generalized anxiety and depression. Dictated By: Jay Pepe MD /anamika/christian /Document#: [id number]
[2017-02-13 15:49] LABS: ADD UMIC YES; UR ASCORBIC ACID NEGATIVE (NEGATIVE); UR BACTERIA FEW /HPF (NONE SEEN); UR BILIRUBIN (Dip) NEGATIVE (NEGATIVE); UR BLOOD (Dip) 1+ mg/dL (NEGATIVE); UR CLARITY CLEAR (CLEAR); UR COLOR STRAW (YELLOW); UR GLUCOSE (Dip) NEGATIVE (NEGATIVE); UR KETONES (Dip) NEGATIVE (NEGATIVE); UR LEUKOCYTE ESTERASE (Dip) 3+ Leu/ul (NEGATIVE); UR NITRITE (Dip) NEGATIVE (NEGATIVE); UR RBC 6 /HPF (0-5); UR SPECIFIC GRAVITY (Dip) 1.004 (1.003-1.030); UR TOTAL PROTEIN (Dip) NEGATIVE (NEGATIVE); UR UROBILINOGEN (Dip) NEGATIVE (NEGATIVE)
[2017-02-13] MEDS: OXYCODONE/ACETAMINOPHEN (5/325) TAB PO PRN ×2 (17:37→18:57)
--- NOTE | 2017-02-13 18:35 | CONS ---
Date/Time of Note Date/Time of Note DATE: 02/13/17 TIME: 18:27 Assessment/Plan Assessment/Plan Chief Complaint/Hosp Course Impression: 1. Ground-level fall with right ankle fracture. The patient has a distal fracture of the right fibula and of the medial malleolus. She has a previous history of an ORIF of the right tibia.Orthopedics plans on doing surgery after swelling subsides . 2. Atrial fibrillation, now in sinus rhythm 3. Abnormal EKG with inverted T waves. Her EKG is unchanged from an EKG of February 08, 2009 which the patient showed me tonight. 4. Hypertension 5. Cardiac pacemaker 6. Hyperlipidemia 7. Hypothyroidism on replacement therapy 8. Generalized anxiety disorder 9. History of urinary incontinence 10. Osteoporosis 11. Multiple orthopedic surgeries in the past on both lower extremities. 12. Nausea, will change to morphine for pain, which she has tolerated previously Plan: 1. Resume some routine medications 2. Cardiology is following the patient 3. I will follow the patient along with you Problems: Consultation Date/Type/Reason Admit Date/Time Feb 12, 2017 at 12:48 Initial Consult Date 02/12/17 Type of Consultation: medicine Referring Provider: IFRAH SPRINGER MD 24 HR Interval Summary Free Text/Dictation She is still having R ankle pain and some nausea . Her BP has been high . Constitutional: poor po Exam/Review of Systems Vital Signs Vitals Vital Signs Date Time Temp Pulse Resp B/P Pulse Ox O2 Delivery O2 Flow Rate FiO2 02/13/17 08:29 98.8 76 18 181/86 98 Room Air Intake and Output 02/12/17 02/12/17 02/13/17 15:00 23:00 07:00 Intake Total 250 ml 1300 ml Output Total 1700 ml 2500 ml Balance -1450 ml -1200 ml Exam Constitutional: alert, obese, oriented ENMT: nl external ears & nose Respiratory: clear to auscultation Cardiovascular: regular rate and rhythm Gastrointestinal: soft Musculoskeletal: nl extremities to inspection Neurological: nl mental status, nl speech Results Result Diagram: 02/13/17 0459 02/13/17 0458 Results 24 hrs Laboratory Tests Test 02/13/17 04:58 02/13/17 04:59 02/13/17 05:20 02/13/17 05:45 Sodium Level 137 Potassium Level 4.2 Chloride Level 95 L Carbon Dioxide Level 30 Anion Gap 16 Blood Urea Nitrogen 16 Creatinine 0.72 Glucose Level 113 Calcium Level 9.4 Magnesium Level 1.7 Total Bilirubin 0.3 Direct Bilirubin 0.00 Indirect Bilirubin 0.3 Aspartate Amino Transf (AST/SGOT) 18 Alanine Aminotransferase (ALT/SGPT) 19 Alkaline Phosphatase 53 Total Protein 6.3 Albumin 3.5 Globulin 2.80 Albumin/Globulin Ratio 1.25 Free Thyroxine Index 2.06 Thyroxine (T4) 5.1 L Triiodothyronine (T3) Uptake 40.4 Parathyroid Hormone (Intact) White Blood Count 6.3 # Red Blood Count 3.79 L Hemoglobin 12.3 Hematocrit 37.1 Mean Corpuscular Volume 97.9 Mean Corpuscular Hemoglobin 32.5 Mean Corpuscular Hemoglobin Concent 33.2 Red Cell Distribution Width 12.7 Platelet Count 205 Mean Platelet Volume 9.9 Neutrophils % 62.9 Lymphocytes % 20.7 Monocytes % 14.4 H Eosinophils % 1.1 Basophils % 0.6 Nucleated Red Blood Cells % 0.0 Neutrophils # 4.0 Lymphocytes # 1.3 Monocytes # 0.9 Eosinophils # 0.1 Basophils # 0.0 Nucleated Red Blood Cells # 0.0 Urine Color STRAW Urine Clarity CLEAR Urine pH 6.0 Urine Specific [place] 1.004 Urine Ketones NEGATIVE Urine Nitrite NEGATIVE Urine Bilirubin NEGATIVE Urine Urobilinogen NEGATIVE Urine Leukocyte Esterase 3+ H Urine Microscopic RBC 6 H Urine Microscopic WBC 8 H Urine Bacteria FEW A Urine Hemoglobin 1+ H Urine Glucose NEGATIVE Urine Total Protein NEGATIVE Vitamin D 1,25-Dihydroxy 52.1 Medications Medications Current Medications Oxycodone/ Acetaminophen (Percocet (5/ 325)) 1 tab Q4H PRN PO PAIN Last administered on 02/13/17 17:37; Admin Dose 1 TAB; Start 02/12/17 at 15:30 Oxycodone/ Acetaminophen (Percocet (5/ 325)) 2 tab Q4H PRN PO PAIN; Start 02/12 at 15:30 Atorvastatin Calcium (Lipitor) 10 mg QHS PO Last administered on 02/12/17 22: 56; Admin Dose 10 MG; Start 02/12/17 at 21:00 Sotalol HCl (Betapace) 160 mg BID PO Last administered on 02/13/17 08:54; Admin Dose 160 MG; Start 02/12/17 at 21:00 Trazodone HCl (Desyrel) 300 mg QHS PO ; Start 02/12/17 at 21:00 Pantoprazole (Protonix Tab) 40 mg DAILY@06 PO Last administered on 02/13/17 06 :11; Admin Dose 40 MG; Start 02/13/17 at 06:00 Lisinopril (Zestril) 20 mg DAILY PO Last administered on 02/13/17 08:52; Admin Dose 20 MG; Start 02/13/17 at 09:00 Metoclopramide HCl (Reglan) 10 mg Q6H PRN IV NAUSEA Last administered on 15:25; Admin Dose 10 MG; Start 02/12/17 at 18:30 Carbamazepine (Tegretol Xr) 400 mg Q12 PO Last administered on 02/13/17 08:57 ; Admin Dose 400 MG; Start 02/12/17 at 21:00 Morphine Sulfate MG/HR CONTINUOUS RATE 1... Q4PCA IV Last administered on 02/12 19:47; Admin Dose 30 MG; Start 02/12/17 at 19:00 Dextrose/Sodium Chloride (D5-1/2ns) 1,000 ml @ 80 mls/hr [id number] IV Last administered on 02/13/17 08:08; Admin Dose 80 MLS/HR; Start 02/12/17 at 19:00 Clonidine (Catapres) 0.1 mg Q6H PRN PO ELEVATED BLOOD PRESSURE; Start 02/12/17 at 19:00 CHUCK MCCRACKEN MD Feb 13, 2017 18:35
[2017-02-13] MEDS ORDERED: BISACODYL 10 MG SUPP PR PRN (19:00)
[2017-02-13] MEDS ORDERED: MAGNESIUM HYDROXIDE 30ML CUP PO PRN (19:00)
[2017-02-13 19:49] VITALS: BP 172/103; RESP 20
[2017-02-13] MEDS: ATORVASTATIN 10 MG TAB PO SCH (20:55)
[2017-02-13] MEDS: traZODone 100 MG TAB PO SCH (20:56)
[2017-02-13] MEDS: DOCUSATE SODIUM 100 MG CAP PO SCH (21:00)
[2017-02-14] MEDS: morphine 1 MG/ML 30 ML (PCA) IV SCH ×2 (02:00→20:56)
[2017-02-14] MEDS: OXYCODONE/ACETAMINOPHEN (5/325) TAB PO PRN ×2 (02:52→20:36)
[2017-02-14] MEDS: LEVOTHYROXINE 175 MCG TAB PO SCH (06:15)
[2017-02-14] MEDS: PANTOPRAZOLE (EC) 40 MG TAB PO SCH (06:15)
[2017-02-14 07:00] VITALS: BP 143/83; RESP 20
[2017-02-14] MEDS: METOCLOPRAMIDE 10 MG INJ IV PRN (07:51)
[2017-02-14] MEDS: LISINOPRIL 20 MG TAB PO SCH (09:36)
[2017-02-14] MEDS: DOCUSATE SODIUM 100 MG CAP PO SCH ×2 (09:37→21:17)
[2017-02-14] MEDS: carBAMAZepine (XR) 100 MG TABSR PO SCH ×2 (09:37→21:20)
[2017-02-14] MEDS: SOTALOL 80 MG TAB PO SCH ×2 (09:38→21:18)
--- NOTE | 2017-02-14 10:01 | CONS ---
Date/Time of Note Date/Time of Note DATE: 02/14/17 TIME: 09:53 Assessment/Plan Assessment/Plan Chief Complaint/Hosp Course Impression: 1. Ground-level fall with right ankle fracture. The patient has a distal fracture of the right fibula and of the medial malleolus. She has a previous history of an ORIF of the right tibia.Orthopedics plans on doing surgery after swelling subsides . She is now having more pain in her right knee. She does not have a kneecap in that knee. If the surgery is not done soon then the patient will need to go either to the acute rehab unit here in the hospital if they accept her or to a and outpatient rehab facility like [facility]. 2. Atrial fibrillation, now in sinus rhythm 3. Abnormal EKG with inverted T waves. Her EKG is unchanged from an EKG of February 08, 2009 which the patient showed me tonight. 4. Hypertension 5. Cardiac pacemaker 6. Hyperlipidemia 7. Hypothyroidism on replacement therapy 8. Generalized anxiety disorder 9. History of urinary incontinence 10. Osteoporosis 11. Multiple orthopedic surgeries in the past on both lower extremities. 12. Nausea, will change to morphine for pain, which she has tolerated previously Plan: 1. Continue current medications and physical therapy as tolerated. 2. Discharge planning is in progress. Problems: Consultation Date/Type/Reason Admit Date/Time Feb 12, 2017 at 12:48 Initial Consult Date 02/12/17 Type of Consultation: medicine Referring Provider: IFRAH SPRINGER MD 24 HR Interval Summary Free Text/Dictation She complains of right knee pain when she tries to stand with physical therapy. Exam/Review of Systems Vital Signs Vitals Vital Signs Date Time Temp Pulse Resp B/P Pulse Ox O2 Delivery O2 Flow Rate FiO2 02/14/17 07:00 97.9 75 20 143/83 99 02/13/17 08:29 Room Air Intake and Output 02/13/17 02/13/17 02/14/17 15:00 23:00 07:00 Intake Total 1500 ml 1300 ml Output Total 1500 ml 1000 ml Balance 0 ml 300 ml Exam She has a large splint on her right ankle and foot. Constitutional: alert, obese, oriented Respiratory: clear to auscultation, normal air movement Cardiovascular: regular rate and rhythm Gastrointestinal: non-tender, soft Results Result Diagram: 02/13/17 0459 02/13/17 0458 Medications Medications Current Medications Oxycodone/ Acetaminophen (Percocet (5/ 325)) 1 tab Q4H PRN PO PAIN Last administered on 02/13/17 18:57; Admin Dose 1 TAB; Start 02/12/17 at 15:30 Oxycodone/ Acetaminophen (Percocet (5/ 325)) 2 tab Q4H PRN PO PAIN Last administered on 02/14/17 02:52; Admin Dose 2 TAB; Start 02/12/17 at 15:30 Atorvastatin Calcium (Lipitor) 10 mg QHS PO Last administered on 02/13/17 20: 55; Admin Dose 10 MG; Start 02/12/17 at 21:00 Sotalol HCl (Betapace) 160 mg BID PO Last administered on 02/14/17 09:38; Admin Dose 160 MG; Start 02/12/17 at 21:00 Trazodone HCl (Desyrel) 300 mg QHS PO Last administered on 02/13/17 20:56; Admin Dose 300 MG; Start 02/12/17 at 21:00 Pantoprazole (Protonix Tab) 40 mg DAILY@06 PO Last administered on 02/14/17 06 :15; Admin Dose 40 MG; Start 02/13/17 at 06:00 Lisinopril (Zestril) 20 mg DAILY PO Last administered on 02/14/17 09:36; Admin Dose 20 MG; Start 02/13/17 at 09:00 Metoclopramide HCl (Reglan) 10 mg Q6H PRN IV NAUSEA Last administered on 07:51; Admin Dose 10 MG; Start 02/12/17 at 18:30 Carbamazepine (Tegretol Xr) 400 mg Q12 PO Last administered on 02/14/17 09:37 ; Admin Dose 400 MG; Start 02/12/17 at 21:00 Morphine Sulfate MG/HR CONTINUOUS RATE 1... Q4PCA IV Last administered on 02/14 02:00; Admin Dose 30 MG; Start 02/12/17 at 19:00 Dextrose/Sodium Chloride (D5-1/2ns) 1,000 ml @ 80 mls/hr [id number] IV Last administered on 02/13/17 19:51; Admin Dose 80 MLS/HR; Start 02/12/17 at 19:00 Clonidine (Catapres) 0.1 mg Q6H PRN PO ELEVATED BLOOD PRESSURE Last administered on 02/13/17 19:58; Admin Dose 0.1 MG; Start 02/12/17 at 19:00 Docusate Sodium (Colace) 100 mg BID PO Last administered on 02/14/17 09:37; Admin Dose 100 MG; Start 02/13/17 at 21:00 Magnesium Hydroxide (Milk Of Mag) 30 ml BID PRN PO CONSTIPATION; Start at 19:00 Bisacodyl (Dulcolax Supp) 10 mg DAILY PRN NE CONSTIPATION; Start 02/13/17 at 19 :00 CHUCK MCCRACKEN MD Feb 14, 2017 10:00
[2017-02-14] MEDS: ACETAMINOPHEN 325 MG TAB PO PRN ×2 (12:03→17:01)
[2017-02-14] MEDS: DEXTROSE 5%-0.45% NACL 1,000 ML IV SCH ×2 (13:21→21:00)
--- NOTE | 2017-02-14 14:48 | RADRPT ---
PROCEDURE: Right knee radiographs. CLINICAL INDICATION: Trauma due to a fall. Right knee pain. TECHNIQUE: Three views. Weight bearing. Frontal, lateral, and patellar view. COMPARISON: No prior studies are available for comparison. FINDINGS: There is no fracture or dislocation. The soft tissues are normal. There are degenerative changes with osteophytes arising from all 3 joint compartment margins. There is medial joint compartment narrowing and deformity. There is no lytic or blastic lesion. There are 2 surgical screws in the medial femoral condyle. IMPRESSION: 1. Moderate to severe degenerative changes of the right knee. 2. Prior surgery of the medial femoral condyle. RPTAT: QQ .Andrea Lopez MD, MD Date Time Electronically viewed and signed by .Andrea Lopez MD, MD on 02/14/2017 14:47 .R/
[2017-02-14 20:31] VITALS: BP 173/91; RESP 22
[2017-02-14] MEDS: traZODone 100 MG TAB PO SCH (21:18)
[2017-02-14] MEDS: ATORVASTATIN 10 MG TAB PO SCH (21:18)
[2017-02-14 23:00] VITALS: BP 159/87; PULSE 76; RESP 18
[2017-02-15] MEDS: DEXTROSE 5%-0.45% NACL 1,000 ML IV SCH ×2 (00:23→12:41)
[2017-02-15 03:00] VITALS: BP 158/87; PULSE 78; RESP 18
[2017-02-15] MEDS: OXYCODONE/ACETAMINOPHEN (5/325) TAB PO PRN ×5 (04:28→20:26)
[2017-02-15] MEDS: ONDANSETRON 4 MG INJ IV PRN ×3 (04:28→20:30)
[2017-02-15] MEDS: LEVOTHYROXINE 175 MCG TAB PO SCH (06:00)
[2017-02-15] MEDS: PANTOPRAZOLE (EC) 40 MG TAB PO SCH (06:00)
[2017-02-15 07:00] VITALS: BP 138/80; RESP 20
[2017-02-15] MEDS: DOCUSATE SODIUM 100 MG CAP PO SCH ×2 (08:29→21:56)
[2017-02-15] MEDS: SOTALOL 80 MG TAB PO SCH ×2 (08:30→21:47)
[2017-02-15] MEDS: LISINOPRIL 20 MG TAB PO SCH (09:00)
--- NOTE | 2017-02-15 10:23 | CONS ---
Date/Time of Note Date/Time of Note DATE: 02/15/17 TIME: 10:21 Assessment/Plan Assessment/Plan Chief Complaint/Hosp Course Impression: 1. Ground-level fall with right ankle fracture. The patient has a distal fracture of the right fibula and of the medial malleolus. She has a previous history of an ORIF of the right tibia.Orthopedics plans on doing surgery after swelling subsides . She is feeling better today with less pain. If the surgery is not done soon then the patient will need to go either to the acute rehab unit here in the hospital if they accept her or to a and outpatient rehab facility like [facility]. Discharge planning is in process. 2. Atrial fibrillation, now in sinus rhythm 3. Abnormal EKG with inverted T waves. Her EKG is unchanged from an EKG of February 08, 2009 which the patient showed me tonight. 4. Hypertension 5. Cardiac pacemaker 6. Hyperlipidemia 7. Hypothyroidism on replacement therapy 8. Generalized anxiety disorder 9. History of urinary incontinence 10. Osteoporosis 11. Multiple orthopedic surgeries in the past on both lower extremities. 12. Nausea, will change to morphine for pain, which she has tolerated previously Plan: 1. Continue current medications and physical therapy as tolerated. 2. Discharge planning is in progress. Problems: Consultation Date/Type/Reason Admit Date/Time Feb 12, 2017 at 12:48 Initial Consult Date 02/12/17 Type of Consultation: medicine Referring Provider: IFRAH SPRINGER MD 24 HR Interval Summary Free Text/Dictation She is feeling better today. Her pain is under control. Her nausea has resolved Constitutional: improved, no complaints Exam/Review of Systems Vital Signs Vitals Vital Signs Date Time Temp Pulse Resp B/P Pulse Ox O2 Delivery O2 Flow Rate FiO2 02/15/17 07:00 98.2 75 20 138/80 98 02/15/17 03:00 Room Air Intake and Output 02/14/17 02/14/17 02/15/17 15:00 23:00 07:00 Intake Total 320 ml 1620 ml 1530 ml Output Total 1400 ml 1200 ml Balance 320 ml 220 ml 330 ml Exam Her right ankle and foot are in a large splint. Constitutional: alert, oriented Respiratory: clear to auscultation, normal air movement Cardiovascular: regular rate and rhythm Gastrointestinal: non-tender, soft Results Result Diagram: 02/13/17 0459 02/13/17 0458 Medications Medications Current Medications Oxycodone/ Acetaminophen (Percocet (5/ 325)) 1 tab Q4H PRN PO PAIN Last administered on 02/15/17 08:29; Admin Dose 1 TAB; Start 02/12/17 at 15:30 Oxycodone/ Acetaminophen (Percocet (5/ 325)) 2 tab Q4H PRN PO PAIN Last administered on 02/14/17 20:36; Admin Dose 2 TAB; Start 02/12/17 at 15:30 Atorvastatin Calcium (Lipitor) 10 mg QHS PO Last administered on 02/14/17 21: 18; Admin Dose 10 MG; Start 02/12/17 at 21:00 Sotalol HCl (Betapace) 160 mg BID PO Last administered on 02/15/17 08:30; Admin Dose 160 MG; Start 02/12/17 at 21:00 Trazodone HCl (Desyrel) 300 mg QHS PO Last administered on 02/14/17 21:18; Admin Dose 300 MG; Start 02/12/17 at 21:00 Pantoprazole (Protonix Tab) 40 mg DAILY@06 PO Last administered on 02/15/17 06 :00; Admin Dose 40 MG; Start 02/13/17 at 06:00 Lisinopril (Zestril) 20 mg DAILY PO Last administered on 02/14/17 09:36; Admin Dose 20 MG; Start 02/13/17 at 09:00 Metoclopramide HCl (Reglan) 10 mg Q6H PRN IV NAUSEA Last administered on 07:51; Admin Dose 10 MG; Start 02/12/17 at 18:30 Carbamazepine (Tegretol Xr) 400 mg Q12 PO Last administered on 02/14/17 21:20 ; Admin Dose 400 MG; Start 02/12/17 at 21:00 Morphine Sulfate MG/HR CONTINUOUS RATE 1... Q4PCA IV Last administered on 02/14 20:56; Admin Dose 30 MG; Start 02/12/17 at 19:00 Dextrose/Sodium Chloride (D5-1/2ns) 1,000 ml @ 80 mls/hr [id number] IV Last administered on 02/15/17 00:23; Admin Dose 80 MLS/HR; Start 02/12/17 at 19:00 Clonidine (Catapres) 0.1 mg Q6H PRN PO ELEVATED BLOOD PRESSURE Last administered on 02/13/17 19:58; Admin Dose 0.1 MG; Start 02/12/17 at 19:00 Docusate Sodium (Colace) 100 mg BID PO Last administered on 02/15/17 08:29; Admin Dose 100 MG; Start 02/13/17 at 21:00 Magnesium Hydroxide (Milk Of Mag) 30 ml BID PRN PO CONSTIPATION; Start at 19:00 Bisacodyl (Dulcolax Supp) 10 mg DAILY PRN [place] CONSTIPATION; Start 02/13/17 at 19 :00 Acetaminophen (Tylenol Tab) 650 mg Q4H PRN PO PAIN AND OR ELEVATED TEMP Last administered on 02/14/17 17:01; Admin Dose 325 MG; Start 02/14/17 at 12:00 Ondansetron HCl (Zofran Inj) 4 mg Q6H PRN IV NAUSEA AND/OR VOMITING Last administered on 02/15/17 04:28; Admin Dose 4 MG; Start 02/14/17 at 12:00 CHUCK MCCRACKEN MD Feb 15, 2017 10:23
[2017-02-15] MEDS: carBAMAZepine (XR) 100 MG TABSR PO SCH ×2 (12:23→21:56)
[2017-02-15] MEDS: morphine 1 MG/ML 30 ML (PCA) IV SCH (15:01)
[2017-02-15 20:43] VITALS: BP 145/85; RESP 18
[2017-02-15] MEDS: traZODone 100 MG TAB PO SCH (21:47)
[2017-02-15] MEDS: ATORVASTATIN 10 MG TAB PO SCH (21:56)
[2017-02-16] MEDS: DEXTROSE 5%-0.45% NACL 1,000 ML IV SCH ×2 (00:48→14:21)
[2017-02-16] MEDS: OXYCODONE/ACETAMINOPHEN (5/325) TAB PO PRN ×5 (00:48→20:15)
[2017-02-16 04:54] LABS: HEMATOCRIT 32.2 % (37.0-47.0); HEMOGLOBIN 10.7 g/dl (12.0-16.0); MEAN CORPUSCULAR HEMOGLOBIN 32.1 pg (29.0-33.0); MEAN CORPUSCULAR HGB CONC 33.2 g/dl (32.0-37.0); MEAN CORPUSCULAR VOLUME 96.7 fl (82.0-101.0); PLATELET COUNT 173 10^3/UL (140-415); RED BLOOD COUNT 3.33 10^6/ul (4.20-5.40); RED CELL DISTRIBUTION WIDTH 12.5 % (11.5-14.5); WHITE BLOOD COUNT 7.9 10^3/ul (4.8-10.8)
[2017-02-16 05:37] LABS: CALCIUM 8.4 mg/dl (8.4-10.2); CREATININE 0.68 mg/dl (0.44-1.00); POTASSIUM 3.8 mmol/L (3.5-5.1)
[2017-02-16] MEDS: LEVOTHYROXINE 175 MCG TAB PO SCH (06:03)
[2017-02-16] MEDS: ONDANSETRON 4 MG INJ IV PRN ×2 (06:03→12:18)
[2017-02-16] MEDS: PANTOPRAZOLE (EC) 40 MG TAB PO SCH (06:03)
[2017-02-16 08:00] VITALS: BP 154/76; RESP 20
[2017-02-16] MEDS: DOCUSATE SODIUM 100 MG CAP PO SCH ×2 (08:53→21:11)
[2017-02-16] MEDS: LISINOPRIL 20 MG TAB PO SCH (08:53)
[2017-02-16] MEDS: SOTALOL 80 MG TAB PO SCH ×2 (08:53→21:12)
[2017-02-16 09:59] LABS: BASOPHILS % 0.5 % (0.0-2.0); EOSINOPHILS # 0.2 10^3/ul (0.0-0.5); EOSINOPHILS % 2.9 % (0.0-7.0); LYMPHOCYTES # 1.3 10^3/ul (0.8-2.9); LYMPHOCYTES % 16.5 % (15.0-51.0); MONOCYTE # 1.4 10^3/ul (0.3-0.9); MONOCYTES % 17.3 % (0.0-11.0); NEUTROPHIL # 4.9 10^3/ul (1.6-7.5); NEUTROPHILS % 62.4 % (39.0-77.0)
--- NOTE | 2017-02-16 10:52 | PN ---
DATE: 02/15/2017 CHIEF COMPLAINT: Right knee and ankle pain. HISTORY OF PRESENT ILLNESS: The patient is a 66-year-old female, with pain in the right knee and ankle. She has been complaining of increased pain in right knee. I did x-rays on her yesterday of her right knee. Her ankle has been feeling better but still has a lot of pain as well. She is trying to wean herself off the SECURITY OPERATIONS ENGINEER pump. PHYSICAL EXAMINATION: GENERAL: Today, she is pleasant female, oriented x3. KNEE: She had effusion in the knee. Pain along the patellofemoral joint and medial lateral joint line. Range of motion 0-90 degrees with pain. Has pain trying to do a straight leg raise and quadriceps contraction. Her knee is stable. EXTREMITIES: Exam of her foot and ankle reveals the splint to be comfortable is well padded. She moves her toes well. The swelling is going down. NEUROLOGICAL: She is intact. X-RAYS: Reviewed of her right knee from yesterday show soft tissue swelling. There are [address] in the medial femoral condyle from previous surgery. She has some degenerative joint disease of her right knee with no fracture, dislocations, or subluxations. X-rays done previously of the right ankle show a complex fracture of the medial malleolus and a fracture above the plate in her fibula with comminution. ASSESSMENT: 1. Degenerative joint disease, right knee. 2. Comminuted complex fracture of her right ankle, bimalleolar, with the fibular fracture above the previous plate. PLAN: 1. The patient is working on ambulation with a therapist. 2. She will be discharged to a rehabilitation unit soon while the swelling is going down and abrasions are healing in her leg and ankle. 3. We will check her in the office next week to see how she is doing, and hopefully, we can do her surgery within the next week or 10 days. Dictated By: Jay Pepe MD /anamika/john /Document#: [id number]
[2017-02-16] MEDS: carBAMAZepine (XR) 100 MG TABSR PO SCH ×2 (12:45→22:34)
--- NOTE | 2017-02-16 15:36 | CONS ---
Date/Time of Note Date/Time of Note DATE: 02/16/17 TIME: 15:32 Consult Date/Type/Reason Admit Date/Time Feb 12, 2017 at 12:48 Initial Consult Date 02/12/17 Type of Consultation: medicine Reason for Consultation pafib, HLD, HTN, hypothyroidism Ordering Provider: IFRAH SPRINGER MD Subjective Patient continues to have pain and require DECATOR OPERATOR. Constipated since Saturday. Denies fevers, chills, nausea, vomiting, diarrhea, chest pain, sob, cough, abd pain. Objective Vital Signs Date Time Temp Pulse Resp B/P Pulse Ox O2 Delivery O2 Flow Rate FiO2 02/16/17 08:00 98.2 77 20 154/76 99 02/15/17 03:00 Room Air Intake and Output 02/15/17 02/15/17 02/16/17 15:00 23:00 07:00 Intake Total 600 ml 1550 ml 1670 ml Output Total 1100 ml Balance 600 ml 1550 ml 570 ml Exam GEN-NAD HEENT-Op clear, mmm CV-rrr, nm1 s1/s2, no m/r/g pulm-CTAB, no w/r/r Abd-soft, nt/ND, +BS ext-Left leg in soft splint, 2-3+ edema. R leg with trace edema as well Results/Medications Result Diagram: 02/16/1742802/16/17428 Results 24 hrs Laboratory Tests Test 02/16/17 04:29 White Blood Count 7.9 # Red Blood Count 3.33 L Hemoglobin 10.7 L Hematocrit 32.2 L Mean Corpuscular Volume 96.7 Mean Corpuscular Hemoglobin 32.1 Mean Corpuscular Hemoglobin Concent 33.2 Red Cell Distribution Width 12.5 Platelet Count 173 Mean Platelet Volume 10.0 Neutrophils % 62.4 Lymphocytes % 16.5 Monocytes % 17.3 H Eosinophils % 2.9 Basophils % 0.5 Nucleated Red Blood Cells % 0.0 Neutrophils # 4.9 Lymphocytes # 1.3 Monocytes # 1.4 H Eosinophils # 0.2 Basophils # 0.0 Nucleated Red Blood Cells # 0.0 Sodium Level 134 L Potassium Level 3.8 Chloride Level 96 L Carbon Dioxide Level 28 Anion Gap 14 Blood Urea Nitrogen 5 L Creatinine 0.68 Glucose Level 118 Calcium Level 8.4 Medications Current Medications Oxycodone/ Acetaminophen (Percocet (5/ 325)) 1 tab Q4H PRN PO PAIN Last administered on 02/15/17 12:22; Admin Dose 1 TAB; Start 02/12/17 at 15:30 Oxycodone/ Acetaminophen (Percocet (5/ 325)) 2 tab Q4H PRN PO PAIN Last administered on 02/16/17 12:15; Admin Dose 2 TAB; Start 02/12/17 at 15:30 Atorvastatin Calcium (Lipitor) 10 mg QHS PO Last administered on 02/15/17 21: 56; Admin Dose 10 MG; Start 02/12/17 at 21:00 Sotalol HCl (Betapace) 160 mg BID PO Last administered on 02/16/17 08:53; Admin Dose 160 MG; Start 02/12/17 at 21:00 Trazodone HCl (Desyrel) 300 mg QHS PO Last administered on 02/15/17 21:47; Admin Dose 300 MG; Start 02/12/17 at 21:00 Pantoprazole (Protonix Tab) 40 mg DAILY@06 PO Last administered on 02/16/17 06 :03; Admin Dose 40 MG; Start 02/13/17 at 06:00 Lisinopril (Zestril) 20 mg DAILY PO Last administered on 02/16/17 08:53; Admin Dose 20 MG; Start 02/13/17 at 09:00 Metoclopramide HCl (Reglan) 10 mg Q6H PRN IV NAUSEA Last administered on 07:51; Admin Dose 10 MG; Start 02/12/17 at 18:30 Morphine Sulfate MG/HR CONTINUOUS RATE 1... Q4PCA IV Last administered on 02/15 15:01; Admin Dose 30 MG; Start 02/12/17 at 19:00 Dextrose/Sodium Chloride (D5-1/2ns) 1,000 ml @ 80 mls/hr [id number] IV Last administered on 02/16/17 14:21; Admin Dose 80 MLS/HR; Start 02/12/17 at 19:00 Clonidine (Catapres) 0.1 mg Q6H PRN PO ELEVATED BLOOD PRESSURE Last administered on 02/13/17 19:58; Admin Dose 0.1 MG; Start 02/12/17 at 19:00 Docusate Sodium (Colace) 100 mg BID PO Last administered on 02/16/17 08:53; Admin Dose 100 MG; Start 02/13/17 at 21:00 Magnesium Hydroxide (Milk Of Mag) 30 ml BID PRN PO CONSTIPATION; Start at 19:00 Bisacodyl (Dulcolax Supp) 10 mg DAILY PRN [place] CONSTIPATION; Start 02/13/17 at 19 :00 Acetaminophen (Tylenol Tab) 650 mg Q4H PRN PO PAIN AND OR ELEVATED TEMP Last administered on 02/14/17 17:01; Admin Dose 325 MG; Start 02/14/17 at 12:00 Ondansetron HCl (Zofran Inj) 4 mg Q6H PRN IV NAUSEA AND/OR VOMITING Last administered on 02/16/17 12:18; Admin Dose 4 MG; Start 02/14/17 at 12:00 Carbamazepine (Tegretol Xr) 400 mg BID@ PO Last administered on 02/16/17 12:45; Admin Dose 400 MG; Start 02/15/17 at 12:00 Assessment/Plan Chief Complaint/Hosp Course 66 y/o female pmh HTN, ppm, hypothyroidism, JORGE L, osteoporosis, urinary incontinence, pafib (not on AC) adm 02/12 after ground level fall causing R ankle fracture. She is currently splinted. Planned for surg when swelling improves. On DECATOR OPERATOR for pain. will likely be transferred out then come back for surgery. Problems: Additional Assessment/Plan #rt Ankle fracture -judicious pain management -management per surgery #constipation -will add daily miralax #pafib -rate control #hld -statin #HTN -lisinopril #hypothyroidism -levothyroxine. Dispo per surg, needs to be off DECATOR OPERATOR TRUNG ELIZALDE MD Feb 16, 2017 15:36
[2017-02-16] MEDS: POLYETHYLENE GLYCOL 17 GM PACKET PO SCH (16:16)
[2017-02-16] MEDS ORDERED: CYCLOBENZAPRINE 10 MG TAB PO PRN (18:30)
[2017-02-16 20:40] VITALS: BP 140/77; PULSE 75; RESP 18
[2017-02-16] MEDS: ATORVASTATIN 10 MG TAB PO SCH (21:12)
[2017-02-16] MEDS: traZODone 100 MG TAB PO SCH (21:12)
[2017-02-17] MEDS: OXYCODONE/ACETAMINOPHEN (5/325) TAB PO PRN ×4 (02:03→15:36)
[2017-02-17] MEDS: ONDANSETRON 4 MG INJ IV PRN (02:03)
[2017-02-17] MEDS: DEXTROSE 5%-0.45% NACL 1,000 ML IV SCH (02:03)
[2017-02-17] MEDS: morphine 1 MG/ML 30 ML (PCA) IV SCH (02:04)
[2017-02-17 02:08] VITALS: BP 127/72; RESP 22
[2017-02-17 05:38] LABS: BASOPHIL # 0.1 10^3/ul (0.0-0.1); BASOPHILS % 0.6 % (0.0-2.0); EOSINOPHILS # 0.3 10^3/ul (0.0-0.5); EOSINOPHILS % 3.5 % (0.0-7.0); HEMATOCRIT 31.5 % (37.0-47.0); HEMOGLOBIN 10.5 g/dl (12.0-16.0); LYMPHOCYTES # 0.9 10^3/ul (0.8-2.9); LYMPHOCYTES % 9.7 % (15.0-51.0); MEAN CORPUSCULAR HEMOGLOBIN 31.8 pg (29.0-33.0); MEAN CORPUSCULAR HGB CONC 33.3 g/dl (32.0-37.0); MEAN CORPUSCULAR VOLUME 95.5 fl (82.0-101.0); MEAN PLATELET VOLUME 10.6 fl (7.4-10.4); MONOCYTE # 1.3 10^3/ul (0.3-0.9); MONOCYTES % 13.9 % (0.0-11.0); NEUTROPHIL # 6.5 10^3/ul (1.6-7.5); NEUTROPHILS % 71.9 % (39.0-77.0); PLATELET COUNT 204 10^3/UL (140-415); RED CELL DISTRIBUTION WIDTH 12.5 % (11.5-14.5); WHITE BLOOD COUNT 9.1 10^3/ul (4.8-10.8)
[2017-02-17 06:36] LABS: POSITIVE DIFF @See below
[2017-02-17] MEDS: PANTOPRAZOLE (EC) 40 MG TAB PO SCH (06:44)
[2017-02-17] MEDS: LEVOTHYROXINE 175 MCG TAB PO SCH (06:44)
[2017-02-17 07:51] VITALS: BP 142/82; RESP 19
[2017-02-17] MEDS: SOTALOL 80 MG TAB PO SCH ×2 (08:26→20:41)
[2017-02-17] MEDS: DOCUSATE SODIUM 100 MG CAP PO SCH ×2 (08:27→20:40)
[2017-02-17] MEDS: LISINOPRIL 20 MG TAB PO SCH (08:27)
[2017-02-17] MEDS: POLYETHYLENE GLYCOL 17 GM PACKET PO SCH (08:27)
[2017-02-17] MEDS: carBAMAZepine (XR) 100 MG TABSR PO SCH ×2 (11:01→21:10)
[2017-02-17] MEDS ORDERED: ALBUTEROL/IPRATROPIUM (NEB) 3 ML AMP HHN PRN (12:30)
--- NOTE | 2017-02-17 14:28 | CONS ---
Date/Time of Note Date/Time of Note DATE: 02/17/17 TIME: 14:23 Consult Date/Type/Reason Admit Date/Time Feb 12, 2017 at 12:48 Initial Consult Date 02/12/17 Type of Consultation: medicine Reason for Consultation pafib, HLD, HTN, hypothyroidism, sob Ordering Provider: IFRAH SPRINGER MD Subjective Patient has required less HYDROELECTRIC PLANT MAINTAINER doses today. Pain somewhat better today but is worried that po meds alone may not be sufficient. Still has not had BM, refusing suppository. Eating well. Denies fevers, chills. nausea, vomiting, diarrhea. Denies abdominal pain. No chest pain. Has had sob since last night, feels like asthma/wheezing per patient. Improved after neb treatment. Objective Vital Signs Date Time Temp Pulse Resp B/P Pulse Ox O2 Delivery O2 Flow Rate FiO2 02/17/17 12:40 77 22 99 Nasal Cannula 2.0 02/17/17 07:51 97.5 142/82 Intake and Output 02/16/17 02/16/17 02/17/17 15:00 23:00 07:00 Intake Total 680 ml 1500 ml 1520 ml Output Total 1000 ml 1100 ml Balance 680 ml 500 ml 420 ml Exam GEN-NAD HEENT-Op clear, mmm CV-rrr, nm1 s1/s2, no m/r/g pulm-CTAB, no w/r/r Abd-soft, nt/ND, +BS ext-Left leg in soft splint, 2-3+ edema. R leg with trace edema as well Results/Medications Result Diagram: 02/17/17 0430 02/16/17 0429 Results 24 hrs Laboratory Tests Test 02/17/17 04:30 White Blood Count 9.1 Red Blood Count 3.30 L Hemoglobin 10.5 L Hematocrit 31.5 L Mean Corpuscular Volume 95.5 Mean Corpuscular Hemoglobin 31.8 Mean Corpuscular Hemoglobin Concent 33.3 Red Cell Distribution Width 12.5 Platelet Count 204 Mean Platelet Volume 10.6 H Neutrophils % 71.9 Lymphocytes % 9.7 L Monocytes % 13.9 H Eosinophils % 3.5 Basophils % 0.6 Nucleated Red Blood Cells % 0.0 Neutrophils # 6.5 Lymphocytes # 0.9 Monocytes # 1.3 H Eosinophils # 0.3 Basophils # 0.1 Nucleated Red Blood Cells # 0.0 Medications Current Medications Oxycodone/ Acetaminophen (Percocet (5/ 325)) 1 tab Q4H PRN PO PAIN Last administered on 02/15/17 12:22; Admin Dose 1 TAB; Start 02/12/17 at 15:30 Oxycodone/ Acetaminophen (Percocet (5/ 325)) 2 tab Q4H PRN PO PAIN Last administered on 02/17/17 11:02; Admin Dose 2 TAB; Start 02/12/17 at 15:30 Atorvastatin Calcium (Lipitor) 10 mg QHS PO Last administered on 02/16/17 21: 12; Admin Dose 10 MG; Start 02/12/17 at 21:00 Sotalol HCl (Betapace) 160 mg BID PO Last administered on 02/17/17 08:26; Admin Dose 160 MG; Start 02/12/17 at 21:00 Trazodone HCl (Desyrel) 300 mg QHS PO Last administered on 02/16/17 21:12; Admin Dose 300 MG; Start 02/12/17 at 21:00 Pantoprazole (Protonix Tab) 40 mg DAILY@06 PO Last administered on 02/17/17 06 :44; Admin Dose 40 MG; Start 02/13/17 at 06:00 Lisinopril (Zestril) 20 mg DAILY PO Last administered on 02/17/17 08:27; Admin Dose 20 MG; Start 02/13/17 at 09:00 Metoclopramide HCl 10 mg 10 mg Q6H PRN IV NAUSEA Last administered on 07:51; Admin Dose 10 MG; Start 02/12/17 at 18:30 Dextrose/Sodium Chloride (D5-1/2ns) 1,000 ml @ 80 mls/hr [id number] IV Last administered on 02/17/17 02:03; Admin Dose 80 MLS/HR; Start 02/12/17 at 19:00 Clonidine (Catapres) 0.1 mg Q6H PRN PO ELEVATED BLOOD PRESSURE Last administered on 02/13/17 19:58; Admin Dose 0.1 MG; Start 02/12/17 at 19:00 Docusate Sodium (Colace) 100 mg BID PO Last administered on 02/17/17 08:27; Admin Dose 100 MG; Start 02/13/17 at 21:00 Magnesium Hydroxide (Milk Of Mag) 30 ml BID PRN PO CONSTIPATION Last administered on 02/16/17 21:11; Admin Dose 30 ML; Start 02/13/17 at 19:00 Bisacodyl (Dulcolax Supp) 10 mg DAILY PRN [place] CONSTIPATION; Start 02/13/17 at 19 :00 Acetaminophen (Tylenol Tab) 650 mg Q4H PRN PO PAIN AND OR ELEVATED TEMP Last administered on 02/14/17 17:01; Admin Dose 325 MG; Start 02/14/17 at 12:00 Ondansetron HCl (Zofran Inj) 4 mg Q6H PRN IV NAUSEA AND/OR VOMITING Last administered on 02/17/17 02:03; Admin Dose 4 MG; Start 02/14/17 at 12:00 Carbamazepine (Tegretol Xr) 400 mg BID@ PO Last administered on 02/17/17 11:01; Admin Dose 400 MG; Start 02/15/17 at 12:00 Polyethylene Glycol (Miralax) 17 gm DAILY PO Last administered on 02/17/17 08: 27; Admin Dose 17 GM; Start 02/16/17 at 16:00 Cyclobenzaprine HCl (Flexeril) 5 mg Q8H PRN PO MUSCLE SPASMS Last administered on 02/16/17 18:38; Admin Dose 5 MG; Start 02/16/17 at 18:30 Assessment/Plan Chief Complaint/Hosp Course 66 y/o female pmh HTN, ppm, hypothyroidism, JORGE L, osteoporosis, urinary incontinence, pafib (not on AC) adm 02/12 after ground level fall causing R ankle fracture. She is currently splinted. Planned for surg when swelling improves. On HYDROELECTRIC PLANT MAINTAINER for pain. will likely be transferred out then come back for surgery. Problems: Additional Assessment/Plan #rt Ankle fracture -judicious pain management, will dc payment poster and see how she does -management per surgery #SOB-exam benign. my wet read with no acute cardiopulmonary process. Speaking in complete sentences. Better after nebs -standing nebs for now. no clinical e/o infection at this time #constipation-refusing suppository -continue daily miralax #pafib -rate control #hld -statin #HTN -lisinopril #hypothyroidism -levothyroxine. Dispo-if remains stable can go to sNF tomorrow. Would like to keep one more night off HYDROELECTRIC PLANT MAINTAINER and monitor respiratory status. TRUNG ELIZALDE MD Feb 17, 2017 14:28
[2017-02-17] MEDS ORDERED: morphine 2 MG INJ IV PRN (14:30)
[2017-02-17] MEDS: METOCLOPRAMIDE 10 MG INJ IV PRN (15:56)
--- NOTE | 2017-02-17 17:38 | RADRPT ---
PROCEDURE: XR Chest. CLINICAL INDICATION: Chest pain. TECHNIQUE: Single frontal view. COMPARISON: 02/12/2017. FINDINGS: The lungs are clear. The heart is enlarged. There is a dual lead left-sided permanent pacemaker. There is no pleural effusion. There is no pneumothorax. IMPRESSION: 1. Cardiomegaly. 2. Permanent pacemaker. 3. Clear lungs. RPTAT: QQ .Andrea Lopez MD, MD Date Time Electronically viewed and signed by .Andrea Lopez MD, on 02/17/2017 17:38 .R/
[2017-02-17] MEDS: ACETAMINOPHEN 325 MG TAB PO PRN (18:01)
[2017-02-17 19:55] VITALS: BP 142/68; RESP 19
[2017-02-17] MEDS: ALBUTEROL/IPRATROPIUM (NEB) 3 ML AMP HHN SCH (20:30)
[2017-02-17] MEDS: ATORVASTATIN 10 MG TAB PO SCH (20:40)
[2017-02-17] MEDS: traZODone 100 MG TAB PO SCH (20:40)
[2017-02-18] MEDS: ALBUTEROL/IPRATROPIUM (NEB) 3 ML AMP HHN SCH ×3 (01:15→14:00)
[2017-02-18] MEDS: OXYCODONE/ACETAMINOPHEN (5/325) TAB PO PRN ×5 (01:38→14:15)
[2017-02-18] MEDS: PANTOPRAZOLE (EC) 40 MG TAB PO SCH (06:17)
[2017-02-18] MEDS: LEVOTHYROXINE 175 MCG TAB PO SCH (06:17)
[2017-02-18] MEDS: METOCLOPRAMIDE 10 MG INJ IV PRN (06:26)
--- NOTE | 2017-02-18 07:51 | PDOCDIS ---
Discharge Instructions CONDITION Patient Condition: Good HOME CARE INSTRUCTIONS: Diet Instructions: Reduced SodiumSpecial Diet: REGULAR ACTIVITY: Activity Restrictions: Slowly Increase Activity Rest between Activity Avoid heavy lifting No Weight Bearing Bathing Restrictions: Sponge Bath FOLLOW UP/APPOINTMENTS Follow-up Plan Dr Pepe , CHUCK Woody MD Feb 18, 2017 07:51
[2017-02-18 08:00] VITALS: BP 139/74; RESP 18
[2017-02-18] MEDS ORDERED: RIVAROXABAN 10 MG TABLET PO ONE (08:00)
--- NOTE | 2017-02-18 08:00 | CONS ---
Date/Time of Note Date/Time of Note DATE: 02/18/17 TIME: 07:55 Assessment/Plan Assessment/Plan Chief Complaint/Hosp Course Impression: 1. Ground-level fall with right ankle fracture. The patient has a distal fracture of the right fibula and of the medial malleolus. She has a previous history of an ORIF of the right tibia.Orthopedics plans on doing surgery after swelling subsides . She is feeling better today with less pain. Her pain is controlled on pills. [facility] [place] and will start a comprehensive rehab program. If her orthopedic physician wants her to have surgery that will be arranged in the near future. I will start her on Xarelto for venous thromboembolism prevention. 2. Atrial fibrillation, now in sinus rhythm 3. Abnormal EKG with inverted T waves. Her EKG is unchanged from an EKG of February 08, 2009 which the patient showed me tonight. She was seen by cardiology. 4. Hypertension 5. Cardiac pacemaker 6. Hyperlipidemia 7. Hypothyroidism on replacement therapy 8. Generalized anxiety disorder 9. History of urinary incontinence 10. Osteoporosis 11. History of multiple orthopedic surgeries in the past on both lower extremities. Plan: 1. Continue current medications and physical therapy as tolerated. 2. Discharge planning is in progress. Problems: Consultation Date/Type/Reason Admit Date/Time Feb 12, 2017 at 12:48 Initial Consult Date 02/12/17 Type of Consultation: medicine Referring Provider: IFRAH SPRINGER MD 24 HR Interval Summary Free Text/Dictation She is awake and alert this morning. She was having some cough and shortness of breath yesterday. She received some breathing treatments and is better today. Constitutional: improved, no complaints Exam/Review of Systems Vital Signs Vitals Vital Signs Date Time Temp Pulse Resp B/P Pulse Ox O2 Delivery O2 Flow Rate FiO2 02/18/17 01:19 76 18 98 Nasal Cannula 2.0 02/17/17 19:55 98.3 142/68 Intake and Output 02/17/17 02/17/17 02/18/17 15:00 23:00 07:00 Intake Total 660 ml 1080 ml 600 ml Output Total 900 ml 1900 ml Balance 660 ml 180 ml -1300 ml Exam She has a large splint on right ankle and foot going up to mid calf. Constitutional: alert, oriented, well developed Psych: nl mood/affect, no complaints Respiratory: clear to auscultation, normal air movement Cardiovascular: regular rate and rhythm Gastrointestinal: non-tender, soft Musculoskeletal: nl extremities to inspection Results Result Diagram: 02/17/170 02/16/17 0429 Medications Medications Current Medications Oxycodone/ Acetaminophen (Percocet (5/ 325)) 1 tab Q4H PRN PO PAIN Last administered on 02/18/17 06:30; Admin Dose 1 TAB; Start 02/12/17 at 15:30 Oxycodone/ Acetaminophen (Percocet (5/ 325)) 2 tab Q4H PRN PO PAIN Last administered on 02/18/17 01:38; Admin Dose 2 TAB; Start 02/12/17 at 15:30 Atorvastatin Calcium (Lipitor) 10 mg QHS PO Last administered on 02/17/17 20: 40; Admin Dose 10 MG; Start 02/12/17 at 21:00 Sotalol HCl (Betapace) 160 mg BID PO Last administered on 02/17/17 20:41; Admin Dose 160 MG; Start 02/12/17 at 21:00 Trazodone HCl (Desyrel) 300 mg QHS PO Last administered on 02/17/17 20:40; Admin Dose 300 MG; Start 02/12/17 at 21:00 Pantoprazole (Protonix Tab) 40 mg DAILY@06 PO Last administered on 02/18/17 06 :17; Admin Dose 40 MG; Start 02/13/17 at 06:00 Lisinopril (Zestril) 20 mg DAILY PO Last administered on 02/17/17 08:27; Admin Dose 20 MG; Start 02/13/17 at 09:00 Metoclopramide HCl (Reglan) 10 mg Q6H PRN IV NAUSEA Last administered on 06:26; Admin Dose 10 MG; Start 02/12/17 at 18:30 Clonidine (Catapres) 0.1 mg Q6H PRN PO ELEVATED BLOOD PRESSURE Last administered on 02/13/17 19:58; Admin Dose 0.1 MG; Start 02/12/17 at 19:00 Docusate Sodium (Colace) 100 mg BID PO Last administered on 02/17/17 20:40; Admin Dose 100 MG; Start 02/13/17 at 21:00 Magnesium Hydroxide (Milk Of Mag) 30 ml BID PRN PO CONSTIPATION Last administered on 02/16/17 21:11; Admin Dose 30 ML; Start 02/13/17 at 19:00 Bisacodyl (Dulcolax Supp) 10 mg DAILY PRN [place] CONSTIPATION; Start 02/13/17 at 19 :00 Acetaminophen (Tylenol Tab) 650 mg Q4H PRN PO PAIN AND OR ELEVATED TEMP Last administered on 02/17/17 18:01; Admin Dose 650 MG; Start 02/14/17 at 12:00 Ondansetron HCl (Zofran Inj) 4 mg Q6H PRN IV NAUSEA AND/OR VOMITING Last administered on 02/17/17 02:03; Admin Dose 4 MG; Start 02/14/17 at 12:00 Carbamazepine (Tegretol Xr) 400 mg BID@ PO Last administered on 02/17/17 21:10; Admin Dose 400 MG; Start 02/15/17 at 12:00 Polyethylene Glycol (Miralax) 17 gm DAILY PO Last administered on 02/17/17 08: 27; Admin Dose 17 GM; Start 02/16/17 at 16:00 Cyclobenzaprine HCl (Flexeril) 5 mg Q8H PRN PO MUSCLE SPASMS Last administered on 02/16/17 18:38; Admin Dose 5 MG; Start 02/16/17 at 18:30 Morphine Sulfate (morphine) 1 mg Q4H PRN IV PAIN LEVEL 8-10; Start 02/17/17 at 14:30 CHUCK MCCRACKEN MD Feb 18, 2017 07:59
[2017-02-18] MEDS: SOTALOL 80 MG TAB PO SCH (08:30)
[2017-02-18] MEDS: DOCUSATE SODIUM 100 MG CAP PO SCH (08:31)
[2017-02-18] MEDS: POLYETHYLENE GLYCOL 17 GM PACKET PO SCH (08:31)
[2017-02-18] MEDS: LISINOPRIL 20 MG TAB PO SCH (08:31)
[2017-02-18] MEDS: carBAMAZepine (XR) 100 MG TABSR PO SCH (13:11)
--- NOTE | 2017-02-18 16:49 | PN ---
Date/Time of Note Date/Time of Note DATE: 02/18/17 TIME: 16:42 Assessment/Plan VTE Prophylaxis VTE Prophylaxis Intervention: ambulation, SCD's Lines/Catheters IV Catheter Type (from Nrsg): Saline Lock Urinary Cath still in place: Yes Reason Cath still needed: other (indicate) (i) Assessment/Plan Assessment/Plan Pt.stable with Fx-Disl unstable. Plan to see me on and orif in one week. Subjective 24 Hr Interval Summary Free Text/Dictation Patient feeling better with less pain. She will be going to [facility] and see cesar on . Exam/Review of Systems Vital Signs Vitals Vital Signs Date Time Temp Pulse Resp B/P Pulse Ox O2 Delivery O2 Flow Rate FiO2 02/18/17 08:40 78 16 97 Nasal Cannula 2.0 02/18/17 08:00 98.1 139/74 Intake and Output 02/17/17 02/17/17 02/18/17 15:00 23:00 07:00 Intake Total 660 ml 1080 ml 600 ml Output Total 900 ml 1900 ml Balance 660 ml 180 ml -1300 ml Exam VSS, toes pink Wiggles toes without pain. Cast is a little loose. N-V intact. Results Result Diagram: 02/17/17 0430 02/16/17 0429 IFRAH SPRINGER MD Feb 18, 2017 16:49
--- NOTE | 2017-02-19 04:39 | DS ---
DATE OF ADMISSION: 02/12/2017 DATE OF DISCHARGE: 02/18/2017 FINAL DIAGNOSES: 1. Complex fracture-dislocation of the right ankle. 2. Degenerative joint disease of the knee. 3. History of incontinence. SURGERY: None. HISTORY OF PRESENT ILLNESS: The patient is a 66-year-old female who fell and suffered a complex fracture-dislocation right ankle. The fracture occurred superior to her previous plate where she had broken it in the past on the fibular region and she fractured the medial malleolus as well. HOSPITAL COURSE: She was seen in the [facility] Emergency Room and admitted, placed in a bulky dressing and eventually placed in a well-padded compression dressing was splints the day after. She was found to have on physical exam pain and swelling of the fibula in the medial aspect of the ankle with decreased range of motion and strength. Her laboratory was not intact. Chest x-ray was clear. EKG was stable. The patient's ankle was reduced and splinted. She was kept elevated. She had difficulty getting up. She was able to get up some in a wheelchair and into a cardiac chair. We felt she was not a candidate for surgery yet because of the swelling. The patient was treated symptomatically. She was able to be transferred to [facility] temporarily. She will come back on , the 21 of February. We will change everything with the intention of doing surgery the following Saturday. While in the hospital, she was cleared medically and she was followed, and all medical conditions were treated by Dr. Kenji Becker. Dictated By: Jay Pepe MD /[email or web address]/betty /Document#: [id number] CC: Kenji Becker MD;*End*
== END 2017-02-18 14:57 | DRG 563 ==
LOC: E/R 08:23 → MS1 12:48
PROVIDERS: ADMIT Orthopaedic Surgery; ATTEND Orthopaedic Surgery
PROC: 2W3QX1Z Immobilization of Right Lower Leg using Splint (ICD-10-PCS; principal; 2017-02-12)
DX: S82.51XA Displaced fracture of medial malleolus of right tibia, initial encounter for closed fracture (principal); S09.90XA Unspecified injury of head, initial encounter; I48.91 Unspecified atrial fibrillation; K59.00 Constipation, unspecified; W01.0XXA Fall on same level from slipping, tripping and stumbling without subsequent striking against object, initial encounter; I10 Essential (primary) hypertension; R94.31 Abnormal electrocardiogram [ECG] [EKG]; E78.2 Mixed hyperlipidemia; E03.9 Hypothyroidism, unspecified; F41.9 Anxiety disorder, unspecified; M81.0 Age-related osteoporosis without current pathological fracture; M17.0 Bilateral primary osteoarthritis of knee; M25.471 Effusion, right ankle; Y92.009 Unspecified place in unspecified non-institutional (private) residence as the place of occurrence of the external cause; Z91.040 Latex allergy status; Z98.890 Other specified postprocedural states; Z87.440 Personal history of urinary (tract) infections; Z95.0 Presence of cardiac pacemaker
CPT/HCPCS: 70450; 71010; 73562; 73590; 80048; 80053; 81001; 82306; 82652; 83735; 83970; 84436; 84443; 84479; 85025; 85610; 85730; 87086; 93005; 94640; 94664; 96374; 96375; 96376; 97003; 97110; 97116; 97163; 97167; 97530; 97535; J0690; J1170; J2270; J2405; J2765; J7030; J7042

== ENCOUNTER 2017-02-25 06:29 | Inpatient (IN) | payer BC, MEDICARE ==
--- NOTE | 2017-02-22 20:29 | PREOPHP ---
DATE OF ADMISSION: 02/25/2017 HISTORY OF PRESENT ILLNESS: This 66-year-old female was in her usual state of health until 02/12/2017 when she slipped in her home, fell and injured her right leg. The patient was taken to [facility] Emergency Room. She was diagnosed with a distal fracture of the right fibula and of the medial malleolus. The patient has a history of a previous right ankle fracture involving the right tibia and underwent an ORIF previously. The patient was admitted to the hospital on 02/12/2017. She was seen by Dr. Jay Pepe, her orthopedic surgeon, who placed the right ankle in a splint. The patient was eventually transferred to [facility] in [place]. The patient was transferred from there this morning to have right ankle surgery by Dr. Pepe. The patient has multiple medical problems which I will described below. She has been feeling well except for her right ankle pain. She denies any chest pain, shortness of breath, cough, fever or headache. Laboratory tests done at [facility] showed a urinalysis with positive nitrite, positive leukocyte esterase and some white blood cells. She was started on Keflex 500 mg twice a day to treat possible urinary tract infection. She did not have any urinary symptoms. PAST MEDICAL HISTORY: 1. This is remarkable for atrial fibrillation now in sinus rhythm, cardiac pacemaker. 2. Abnormal EKG which is unchanged from previous EKG. 3. Hypertension. 4. Hyperlipidemia. 5. Hypothyroidism on replacement therapy. 6. Generalized anxiety disorder. 7. History of urinary incontinence. 8. Osteoporosis. 9. Multiple orthopedic surgeries in the past on both lower extremities. 10. Gastroesophageal reflux disease. PAST SURGICAL HISTORY: Bladder surgery x5, skin cancer over left eye, nasal surgery, spinal injury with repair, tonsillectomy, right ankle fracture with ORIF, left ankle surgery, bilateral kneecaps removed. FAMILY HISTORY: Unremarkable. SOCIAL HISTORY: The patient drinks alcohol occasionally. She has never smoked. She does not use illicit drugs. CURRENT MEDICATIONS: 1. Percocet p.r.n. pain. 2. Atorvastatin 10 mg at bedtime daily. 3. Tegretol XR 400 mg twice a day. 4. Sotalol 160 mg twice a day. 5. Trazodone 300 mg at bedtime. 6. Keflex 500 mg twice a day. PHYSICAL EXAMINATION: GENERAL APPEARANCE: This is a well-developed female in no apparent distress. VITAL SIGNS: Temperature 98.2, pulse 72, respirations 18, blood pressure 136/86. O2 sat 100% ora. HEENT: Normocephalic. Extraocular muscles intact. Nose and mouth are normal. NECK: Supple. No neck vein distention. LUNGS: Clear to auscultation and percussion. HEART: Regular rhythm. No murmurs, gallops or rubs. There is a permanent pacemaker in the left upper chest wall. ABDOMEN: Soft, nontender. No masses or megaly. EXTREMITIES: Right ankle and lower leg are in a large splint. Left leg with no edema. Pedal pulses on the left leg are 2+. NEUROLOGIC: Grossly intact. IMPRESSION: This patient is cleared for right ankle surgery. I will follow the patient along with you postoperatively. Dictated By: Kenji Becker MD /anamika/leonel /Document#: [id number]
[2017-02-25] VITALS (34 sets, daily range): BP systolic 103–176; BP diastolic 67–101; PULSE 74–86; RESP 7–20; Ht 172.7 cm; Wt 109.0 kg
[~2017-02-25] VITALS: Ht 172.7 cm; Wt 109.0 kg
[~2017-02-25 06:29] MED LIST changes: -ASPI-535; -ATOR10TA23; +ATOR10TA65 PO; -CARB200T70; +CARB400T4 PO; -CELE200C; +CELE200C PO; -ESOM20CA; +ESOM20CA PO; -LEVO175T2; +LEVO175T2 PO; +LISI20TA11 PO; -OXYB10TA; -SOT120; +SOTA160T PO; +TRAZ300T15 PO; -TRAZ300T2; -TRAZODONE
[2017-02-25] MEDS ORDERED: ROCURONIUM 50 MG INJ ONE ×2 (07:00→11:33)
[2017-02-25] MEDS ORDERED: CEFAZOLIN 1 GM INJ ONE ×2 (07:00→16:50)
[2017-02-25] MEDS ORDERED: DOCU-159 PO (07:55)
[2017-02-25] MEDS ORDERED: CYCL5TAB PO (07:55)
[2017-02-25] MEDS ORDERED: OXYC-279 PO (07:55)
[2017-02-25] MEDS ORDERED: NA P230E RC (07:55)
[2017-02-25] MEDS ORDERED: MAGN400O4 PO (07:55)
[2017-02-25] MEDS ORDERED: RIVA10TA PO (07:55)
[2017-02-25] MEDS ORDERED: ACET-2047 PO (07:55)
[2017-02-25] MEDS ORDERED: ATOR10TA65 PO (07:55)
[2017-02-25] MEDS ORDERED: POLY17PO6 PO (07:55)
[2017-02-25] MEDS ORDERED: BISA10SU75 PR (07:55)
[2017-02-25] MEDS ORDERED: LIDOCAINE 2% (SDV) 5 ML INJ ONE (11:33)
[2017-02-25] MEDS ORDERED: FENTAnyl 50 MCG/ML VIAL ONE (11:33)
[2017-02-25] MEDS ORDERED: PROPOFOL 20 ML ONE (11:33)
[2017-02-25] MEDS ORDERED: MIDAZOLAM 1 MG/ML 2 ML INJ ONE (11:33)
[2017-02-25] MEDS ORDERED: SUCCINYLCHOLINE CHLORIDE 100 MG/5 ML SYG IV ONE (11:33)
[2017-02-25] MEDS ORDERED: ROPIVACAINE 0.5 % 30 ML VIAL ONE ×2 (11:33→11:44)
[2017-02-25] MEDS ORDERED: POVIDONE IODINE 10% 28.4 GM OINT ONE (11:44)
--- NOTE | 2017-02-25 12:35 | HPN ---
Date/Time of Note Date/Time of Note DATE: 02/25/17 TIME: 12:35 Interval H&P Admission Note Pt. seen H&P reviewed: No system changes IFRAH SPRINGER MD Feb 25, 2017 12:35
[2017-02-25] MEDS ORDERED: PHENYLephrine (100 MCG/ML) 5ML SYG ONE (13:07)
[2017-02-25] MEDS ORDERED: HYDROmorphONE 0.2 MG/ML PCA IV SCH (13:30)
[2017-02-25] MEDS ORDERED: BISACODYL 10 MG SUPP PR PRN ×2 (13:30→20:00)
[2017-02-25] MEDS ORDERED: ONDANSETRON 4 MG INJ IV PRN ×2 (13:30→15:30)
[2017-02-25] MEDS ORDERED: CEFAZOLIN 1 GM INJ IV SCH (13:30)
[2017-02-25] MEDS ORDERED: DIPHENHYDRAMINE 25 MG CAP PO PRN (13:30)
[2017-02-25] MEDS ORDERED: DEXAMETHASONE 4 MG/ML 1 ML INJ ONE (13:41)
[2017-02-25] MEDS ORDERED: ONDANSETRON 4 MG INJ ONE (13:41)
[2017-02-25] MEDS ORDERED: HYDROmorphONE 2 MG/ML SYG ONE (13:49)
[2017-02-25] MEDS ORDERED: FAMOTIDINE 20 MG INJ ONE (13:49)
[2017-02-25] MEDS ORDERED: hydrALAzine 20 MG INJ ONE (13:56)
[2017-02-25] MEDS: CEFAZOLIN 2 GM/50 ML (PMX) 50 ML IVPB SCH ×2 (14:00→20:33)
[2017-02-25] MEDS ORDERED: POLYMYXIN/BACITRACIN 1L IRRIG ONE ×3 (15:08→16:16)
[2017-02-25] MEDS ORDERED: PROCHLORPERAZINE 10 MG INJ IV PRN (15:30)
[2017-02-25] MEDS ORDERED: OXYCODONE/ACETAMINOPHEN (5/325) TAB PO PRN (15:30)
[2017-02-25] MEDS ORDERED: HYDROmorphONE (0.2 MG/ML) 10ML SYG IV PRN ×3 (15:30)
[2017-02-25] MEDS ORDERED: MEPERIDINE 25 MG INJ IV PRN (15:30)
[2017-02-25] MEDS ORDERED: FENTAnyl 50 MCG/ML VIAL IV PRN ×3 (15:30)
[2017-02-25] MEDS ORDERED: DIPHENHYDRAMINE 50 MG INJ IV PRN (15:30)
--- NOTE | 2017-02-25 17:07 | RADRPT ---
PROCEDURE: Intraoperative imaging of the right ankle with fluoroscopy. CLINICAL INDICATION: Right ankle pain. Intraoperative. TECHNIQUE: 32 images of the right ankle were obtained in the operating room with an image intensif ier. No radiologist was in attendance. Fluoroscopy time is 0.7 minutes. COMPARISON: Right ankle radiographs dated 02/12/2017. FINDINGS: Surgical instruments are noted overlying the right ankle. Initial images demonstrate a lateral plate and multiple screws transfixing the lateral malleolus. S ubsequent images demonstrate placement of an additional lateral plate and multiple screws transfixin g a fracture of the mid to distal shaft of the fibula. Subsequent images demonstrate placement of a 2 cannulated screws transfixing an oblique fracture of the medial malleolus. IMPRESSION: 1. Intraoperative imaging of the right ankle . 2. Open reduction and internal fixation of the mid to distal shaft of the fibula. 3. Open reduction and internal fixation of the medial malleolus. RPTAT: QQ .Andrea Lopez MD, MD Date Time Electronically viewed and signed by .Andrea Lopez MD, on 02/25/2017 17:07 .R/
--- NOTE | 2017-02-25 17:25 | OPPN ---
Date/Time of Note Date/Time of Note DATE: 02/25/17 TIME: 17:23 Operative Report Preoperative Diagnosis Right trimalleolar ankle fx Postoperative Diagnosis same Operation/Procedure Performed ORIF R trimall (lateral mall and medial mall), ankle arthroscopy/debridement Provider: IFRAH SPRINGER MD administrative assistant data entry: RORO SPRINGER MD Second Assist: ELDON MENDOZA MD Anesthesia: general Estimated blood loss: 10 - 50 ml's Grafts/Implants synthes plate and screws (see dict) Complications: None IFRAH SPRINGER MD Feb 25, 2017 17:25
--- NOTE | 2017-02-25 19:22 | OPR ---
DATE OF OPERATION: 02/25/2017 PREOPERATIVE DIAGNOSES: 1. Complex comminuted fracture of the right fibula above a previous plate. 2. Fracture of the medial malleolus. 3. Fracture posterior malleolus. 4. Fracture debris and chondral and osteochondral loose body greater than 1 cm. SURGERIES: 1. Arthroscopy, right ankle soft tissue distraction. 2. Extensive debridement. 3. Removal of loose bodies. 4. Open reduction, fixation complex fracture of the right middle fibula with double plating over the previous plate. 5. Open reduction, fixation, medial malleolar fracture two 4.08 AO cannulated screws. 6. Use of fluoroscopy to verify the position and alignment of the fractures, guide pins and screws. 7. Short-leg cast. SURGEON: Dr. Jay Pepe. ESL PROFESSOR: Dr. Gregory Reyes. ANESTHESIA: General with a popliteal block. TOURNIQUET TIME: 122 minutes. Extremely complex difficult procedure because the patient had a very high BMI. In addition, she broke the fracture above a previously plated fibular fracture making it much more difficult to fix and much more comminuted. In addition, the patient's bone was quite soft and difficult to work with all necessitating additional 60 minutes of operative time (22). OPERATIVE PROCEDURE: Patient taken the OR, placed supine under satisfactory popliteal block was given and satisfactory general anesthesia was administered. 2 g Ancef intravenously. The right fascia in a thigh luis and secured. The right leg was prepped and draped in usual manner. A superficial peroneal nerve branch was marked out. Standard anteromedial, anterolateral and posterior portals were used using extreme caution. The patient's fracture blister was unroofed and there was what appeared to be also full-thickness eschar over the medial malleolus just above the medial fracture region and a lot of ecchymoses and swelling, but the swelling was significantly improved. There was a lot of fracture debris throughout the ankle a lot of clot, osteochondral loose bodies, probably from the medial malleolar fracture and also from the posterior malleolar fracture. Each greater than 1 cm. The shaver was inserted. The clots were removed from the deltoid, from the lateral gutter, from the posterior gutter, from the front and back of the ankle, loose bodies and debris were removed with a grasper. The entire ankle was irrigated and debrided clear. We removed a lot of the hematoma from the medial malleolar fracture because we wanted to minimize our skin incision because it was right in the area of her vascular full- thickness eschar. The wounds were then closed with 3-0 black nylon. The ankle was then re-prepped and draped. All new gowns and gloves were changed. All new instruments were used. Incision was made through the previous incision of the fibula extending approximately for 5 or 6 cm. Dissection carried down subcutaneous tissue. The fracture was identified. The plate was identified. The fracture was quite comminuted. With distraction we were able to reduce the comminuted pieces and put several inner fragmentary screws using K-wires to hold the fracture out to length. We then took a 1/3 tubular plate, 8 hole. We put 1 screw through an open screw hole on the plate to double plate it, left a lot of the screw holes open in the middle where it was comminuted and then put 3 screws proximally. When we were done the fracture appeared to be anatomically reduced out to length in the AP and lateral directions. We used fluoroscopy throughout the surgery to verify this. Wound was repeatedly irrigated with antibiotic solution. Th peroneal nerve was identified and protected throughout the case. The skin was temporarily closed with 1 suture. Our attention turned to the medial malleolus and made our incision through her previous medial incision. We stopped right at the eschar. We curetted out the fracture site, reduced it as best we could, being extremely careful not to damage the skin further. We put 2 guide pins from the 4-0 AO screw set and used them at [____] to reduce the fracture then put the guide pins up. The screws were then placed with washers 4.0 in nature, but each was 15 mm. Excellent fixation and reduction was obtained. Posterior malleolar fracture was so small it was not necessary to do any further treatment for that. Final fluoroscopic views in AP, lateral, and mortise showed excellent position and alignment with anatomic reduction. The wounds were irrigated repeatedly with several liters of antibiotic solution. Deep tissues were closed with 2-0 and 3-0 undyed Vicryl. The skin with 3-0 and 4- black nylon. Compression dressing was applied. An extra padding was applied after saphenous nerve block done with 0.5 percent ropivacaine. A short-leg cast was then applied in neutral position. At the end of the procedure, sponge and needle count was correct. The patient tolerated the procedure well and was taken to the recovery room when the cast was split. Dictated By: Jay Pepe MD /anamika/elvia /Document#: [id number]
--- NOTE | 2017-02-25 19:28 | OPR ---
DATE OF OPERATION: 02/25/2017 ADDENDUM: TAILING MACHINE OPERATOR ORTHOPEDIC SURGEON: During the procedure an server assistant orthopedic surgeon was used at my request. The server assistant helped with reducing the fracture and while I held it reduced he puts screws at in both the medial lateral fractures without a skilled server assistant this could not have been done. Therefore should be compensated appropriately. FEATHER MAKER: Peewee Pepe MD SECOND TAILING MACHINE OPERATOR: Gregory Reyes MD SURGEON: Jay Pepe MD Dictated By: Jay Pepe MD /anamika/elvia /Document#: [id number]
[2017-02-25] MEDS ORDERED: NA PHOSPHATE/BIPHOS 133 ML ENEMA PR PRN (20:00)
[2017-02-25] MEDS ORDERED: MAGNESIUM HYDROXIDE 30ML CUP PO PRN (20:00)
[2017-02-25 20:08] LABS: ADD UMIC YES; UR ASCORBIC ACID NEGATIVE (NEGATIVE); UR BACTERIA FEW /HPF (NONE SEEN); UR BILIRUBIN (Dip) NEGATIVE (NEGATIVE); UR BLOOD (Dip) NEGATIVE (NEGATIVE); UR CLARITY SLIGHTLY CLOUDY (CLEAR); UR COLOR YELLOW (YELLOW); UR GLUCOSE (Dip) NEGATIVE (NEGATIVE); UR KETONES (Dip) TRACE mg/dL (NEGATIVE); UR LEUKOCYTE ESTERASE (Dip) 2+ Leu/ul (NEGATIVE); UR MUCUS FEW /HPF (NONE SEEN); UR NITRITE (Dip) NEGATIVE (NEGATIVE); UR RBC 2 /HPF (0-5); UR SPECIFIC GRAVITY (Dip) 1.013 (1.003-1.030); UR TOTAL PROTEIN (Dip) 1+ mg/dl (NEGATIVE); UR UROBILINOGEN (Dip) NEGATIVE (NEGATIVE)
[2017-02-25] MEDS: METOCLOPRAMIDE 10 MG INJ IV PRN (20:28)
[2017-02-25] MEDS ORDERED: carBAMAZepine (XR) 200 MG TABSR PO SCH (21:00)
[2017-02-25] MEDS: DOCUSATE SODIUM 100 MG CAP PO SCH (21:00)
[2017-02-25] MEDS: SENNA/DOCUSATE NA (8.6MG/50MG) TAB PO SCH (21:00)
[2017-02-25] MEDS ORDERED: ATORVASTATIN 10 MG TAB PO SCH (21:00)
[2017-02-25] MEDS: traZODone 100 MG TAB PO SCH (21:00)
[2017-02-25] MEDS: ATORVASTATIN 10 MG TAB PO SCH (21:00)
[2017-02-25] MEDS: SOD CHLORIDE 0.9% 1,000 ML IV SCH ×2 (22:06→23:22)
[2017-02-25] MEDS: SOTALOL 80 MG TAB PO SCH (22:10)
[2017-02-25] MEDS: carBAMAZepine (XR) 100 MG TABSR PO SCH (22:26)
[2017-02-26] VITALS (7 sets, daily range): BP systolic 142–170; BP diastolic 72–81; PULSE 77–82; RESP 18–20
[2017-02-26] MEDS ORDERED: HYDROmorphONE 0.2 MG/ML PCA IV SCH (01:55)
[2017-02-26] MEDS: morphine 10 MG INJ IV PRN (02:57)
[2017-02-26] MEDS: METOCLOPRAMIDE 10 MG INJ IV PRN (06:01)
[2017-02-26] MEDS: CEFAZOLIN 2 GM/50 ML (PMX) 50 ML IVPB SCH ×3 (06:05→22:02)
[2017-02-26] MEDS: OXYCODONE/ACETAMINOPHEN (5/325) TAB PO PRN ×6 (06:10→22:06)
[2017-02-26] MEDS: PANTOPRAZOLE (EC) 40 MG TAB PO SCH (06:36)
[2017-02-26] MEDS: LEVOTHYROXINE 175 MCG TAB PO SCH (06:36)
[2017-02-26] MEDS ORDERED: morphine 1 MG/ML 30 ML (PCA) IV SCH (07:55)
--- NOTE | 2017-02-26 08:19 | CONS ---
DATE OF ADMISSION: 02/25/2017 DATE OF CONSULTATION: 02/26/[address] Pepe for asking me to participate in the medical management of this patient. REASON FOR CONSULTATION: To manage the patient's hypertension, atrial fibrillation, urinary tract infection, hyperlipidemia, hypothyroidism and generalized anxiety disorder. HISTORY OF PRESENT ILLNESS: This 66-year-old female is now postop a right ankle surgery for ankle fracture. The patient was in her usual state of health until 02/12/2017, when she slipped in her home, fell and injured her right leg. The patient was diagnosed with a distal fracture of the right fibula and the medial malleolus. The patient has a history of a previous right ankle fracture involving the right tibia and underwent an ORIF previously. The patient was admitted to the hospital on 02/12/2017. She was at that time seen by her orthopedic surgery, Dr. Jay Pepe, who placed the right ankle in a splint. The patient was eventually transferred to the [facility] in [place]. She was then transferred here this morning to have right ankle surgery by Dr. Pepe. The patient is now postop surgery. She underwent an arthroscopy, extensive debridement, open reduction and fixation of a complex fracture of the right middle fibula and double-plating over the previous plate. Also open reduction, fixation of a medial malleolar fracture with 2 cannulated screws. The patient at this time is awake and alert. She is having pain but this is being controlled by a [employer] Dilaudid pump. She is having nausea. She denies any chest pain or shortness of breath. PAST MEDICAL HISTORY: Remarkable for: 1. Atrial fibrillation, now in sinus rhythm with a cardiac pacemaker. 2. Abnormal EKG, which is unchanged from previous EKGs. 3. Hypertension. 4. Hyperlipidemia. 5. Hypothyroidism, on replacement therapy. 6. Generalized anxiety disorder. 7. History of urinary incontinence. 8. Osteoporosis. 9. Multiple orthopedic surgeries in the past on both lower extremities. 10. Gastroesophageal reflux disease. 11. Urinary tract infection recently treated. PAST MEDICAL HISTORY: 1. Bladder surgery x5. 2. Skin cancer over left eye. 3. Nasal surgery. 4. Spinal injury with repair. 5. Tonsillectomy. 6. Right ankle fracture with ORIF. 7. Left ankle surgery. 8. Bilateral knee caps removed. FAMILY HISTORY: Unremarkable. SOCIAL HISTORY: The patient drinks alcohol occasionally. She has never smoked. She does not use illicit drugs. MEDICATION: 1. Percocet p.r.n. pain. 2. Atorvastatin 10 mg at bedtime daily. 3. Tegretol XR 400 mg twice a day. 4. Sotalol 160 mg twice a day. 5. Trazodone 300 mg at bedtime. 6. Keflex 500 mg twice a day. PHYSICAL EXAMINATION: GENERAL APPEARANCE: At this time, reveals a well-developed female, no apparent distress. VITAL SIGNS: Pulse is 74, respirations are 13, blood pressure 144/91, O2 sat is 97 percent on room air. HEENT: Head normocephalic. Eyes: Extraocular muscles intact. Nose and mouth are normal. NECK: Supple. No neck vein distension. LUNGS: Clear to auscultation. HEART: Regular rhythm. No murmurs, gallops or rubs. ABDOMEN: Soft, nontender. EXTREMITIES: The right leg is elevated with a large cast. The left leg is normal without any edema. IMPRESSION: The patient is stable postop a right ankle surgery today for fracture. She is awake and alert. She seems to have some postoperative pain; however, she is being medicated and the pain seems to be coming under control. I will manage the patient's hypertension, hyperlipidemia, hypothyroidism and generalized anxiety disorder. PLAN: 1. Resume routine medications. 2. Check labs in the morning. 3. Postop right ankle fracture surgery protocol. 4. I will follow the patient along with you. Dictated By: Kenji Becker MD /anamika/john /Document#: [id number]
--- NOTE | 2017-02-26 08:27 | PN ---
Date/Time of Note Date/Time of Note DATE: 02/26/17 TIME: 08:19 Assessment/Plan VTE Prophylaxis VTE Prophylaxis Intervention: SCD's Lines/Catheters IV Catheter Type (from Nrs): Peripheral IV Urinary Cath still in place: No Assessment/Plan Chief Complaint/Hosp Course Right ankle fracture Problems: Assessment/Plan 66 yo F with right ankle evangelina fracture s/p ORIF - Continue RLE elevation - Continue po pain meds with IV for breakthrough - SCDs and early ambulation - PT - Dispo: Discharge likely back to SNF when cleared by PT Subjective 24 Hr Interval Summary Free Text/Dictation Patient requested dPCA to be discontinued overnight due to previous reactions at prior hospital stays. This morning she is complaining of pain although sleepy during interview. Denies chest pain, shortness of breath, or lower extremity numbness/tingling. Constitutional: no complaints Respiratory: no complaints Exam/Review of Systems Vital Signs Vitals Vital Signs Date Time Temp Pulse Resp B/P Pulse Ox O2 Delivery O2 Flow Rate FiO2 02/26/17 08:12 97.9 77 20 142/81 100 02/26/17 00:15 Room Air Intake and Output 02/25/17 02/25/17 02/26/17 14:59 22:59 06:59 Intake Total 2050 ml 1250 ml Output Total 910 ml 700 ml Balance 1140 ml 550 ml Exam In general patient resting in hospital bed in no acute distress. Breathing comfortably on nasal cannula oxygen. Focused examination of RLE: Elevated on pillows Short leg cast in place appears to be well fitting. Wiggles toes and reports SILT in toes distally. Extremity warm and well perfused. Results Results 24 hrs Laboratory Tests Test 02/25/17 18:04 Urine Color YELLOW Urine Clarity SLIGHTLY CLOUDY A Urine pH 7.0 Urine Specific [place] 1.013 Urine Ketones TRACE A Urine Nitrite NEGATIVE Urine Bilirubin NEGATIVE Urine Urobilinogen NEGATIVE Urine Leukocyte Esterase 2+ H Urine Microscopic RBC 2 Urine Microscopic WBC 17 H Urine Bacteria FEW A Urine Mucus FEW A Urine Hemoglobin NEGATIVE Urine Glucose NEGATIVE Urine Total Protein 1+ H Medications Medications Current Medications Senna/Docusate Sodium (Senokot-S) 1 tab BID PO ; Start 02/25/17 at 21:00 Magnesium Hydroxide (Milk Of Mag) 30 ml HS PO ; Start 02/27/17 at 21:00 Bisacodyl 10 mg 10 mg DAILY PRN MT CONSTIPATION; Start 02/25/17 at 13:30 Sodium Chloride (NS) 1,000 ml @ 100 mls/hr Q10H IV Last administered on 22:06; Admin Dose 100 MLS/HR; Start 02/25/17 at 13:22 Oxycodone/ Acetaminophen (Percocet (5/ 325)) 2 tab Q4H PRN PO PAIN; Start 02/25 at 13:30 Morphine Sulfate (morphine) 5 mg Q4H PRN IV PAIN LEVEL 7-10 Last administered on 02/26/17 02:57; Admin Dose 5 MG; Start 02/25/17 at 13:30 Ondansetron HCl (Zofran Inj) 4 mg Q4H PRN IV NAUSEA AND/OR VOMITING Last administered on 02/26/17 02:44; Admin Dose 4 MG; Start 02/25/17 at 13:30 Diphenhydramine HCl 25 mg 25 mg Q4H PRN PO ITCHING; Start 02/25/17 at 13:30 Cefazolin Sodium/ Dextrose (Ancef 2 Gm/50 ml (Pmx)) 50 ml @ 100 mls/hr Q8 IVPB Last administered on 02/26/17 06:05; Admin Dose 100 MLS/HR; Start 02/25/17 at 14:00; Stop 02/27/17 at 06:29 Atorvastatin Calcium (Lipitor) 10 mg QHS PO ; Start 02/25/17 at 21:00 Bisacodyl (Dulcolax Supp) 10 mg DAILY PRN MT CONSTIPATION; Start 02/25/17 at 20 :00 Docusate Sodium (Colace) 100 mg BID PO ; Start 02/25/17 at 21:00 Levothyroxine Sodium (Synthroid) 175 mcg DAILY@06 PO Last administered on 06:36; Admin Dose 175 MCG; Start 02/26/17 at 06:00 Lisinopril (Zestril) 20 mg DAILY PO ; Start 02/26/17 at 09:00 Magnesium Hydroxide (Milk Of Mag) 30 ml Q24H PRN PO CONSTIPATION; Start at 20:00 Polyethylene Glycol (Miralax) 17 gm DAILY PO ; Start 02/26/17 at 09:00 Sotalol HCl (Betapace) 160 mg BID PO Last administered on 02/25/17 22:10; Admin Dose 160 MG; Start 02/25/17 at 21:00 Trazodone HCl (Desyrel) 300 mg QHS PO ; Start 02/25/17 at 21:00 Pantoprazole (Protonix Tab) 40 mg DAILY@06 PO Last administered on 02/26/17 06: 36; Admin Dose 40 MG; Start 02/26/17 at 06:00 Sodium Biphosphate/ Sodium Phosphate (Fleet Enema) 133 ml Q48H PRN MT CONSTIPATION; Start 02/25/17 at 20:00 Clonidine (Catapres) 0.1 mg Q6H PRN PO ELEVATED BLOOD PRESSURE Last administered on 02/25/17 23:19; Admin Dose 0.1 MG; Start 02/25/17 at 20:00 Metoclopramide HCl (Reglan) 10 mg Q6H PRN IV NAUSEA Last administered on 06:01; Admin Dose 10 MG; Start 02/25/17 at 20:00 Carbamazepine (Tegretol Xr) 400 mg Q12 PO Last administered on 02/25/17 22:26 ; Admin Dose 400 MG; Start 02/25/17 at 21:00 Morphine Sulfate (morphine) MG/HR CONTINUOUS RATE 1... Q4PCA IV ; Start 02/26/17 at 07:55; Status IFRAH ARRIETA MD Feb 26, 2017 08:27
[2017-02-26] MEDS ORDERED: NALOXONE (0.4 MG/ML) INJ IV PRN (08:30)
[2017-02-26] MEDS: SOD CHLORIDE 0.9% 1,000 ML IV SCH ×2 (08:36→19:11)
[2017-02-26] MEDS: morphine 1 MG/ML 30 ML (PCA) IV SCH ×2 (08:45→16:16)
--- NOTE | 2017-02-26 08:53 | CONS ---
Date/Time of Note Date/Time of Note DATE: 02/26/17 TIME: 08:47 Assessment/Plan Assessment/Plan Chief Complaint/Hosp Course 1. She is 1 day post op an R ankle surgery for fracture . She is having pain and analgesic medication is being switched . 2. HTN 3. h/o A fib , now in sinus 4. UTI 5 hypothyroidism Problems: Consultation Date/Type/Reason Admit Date/Time Feb 25, 2017 at 13:27 Initial Consult Date Type of Consultation: medicine 24 HR Interval Summary Free Text/Dictation She is having pain . 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 Exam/Review of Systems Vital Signs Vitals Vital Signs Date Time Temp Pulse Resp B/P Pulse Ox O2 Delivery O2 Flow Rate FiO2 02/26/17 08:12 97.9 77 20 142/81 100 02/26/17 00:15 Room Air Intake and Output 02/25/17 02/25/17 02/26/17 15:00 23:00 07:00 Intake Total 2050 ml 1250 ml Output Total 910 ml 700 ml Balance 1140 ml 550 ml Exam Her R leg and ankle are in a large cast . Constitutional: alert, obese, oriented Respiratory: clear to auscultation, normal air movement Cardiovascular: regular rate and rhythm Gastrointestinal: non-tender, soft Musculoskeletal: nl extremities to inspection Results Results 24 hrs Laboratory Tests Test 02/25/17 18:04 Urine Color YELLOW Urine Clarity SLIGHTLY CLOUDY A Urine pH 7.0 Urine Specific [place] 1.013 Urine Ketones TRACE A Urine Nitrite NEGATIVE Urine Bilirubin NEGATIVE Urine Urobilinogen NEGATIVE Urine Leukocyte Esterase 2+ H Urine Microscopic RBC 2 Urine Microscopic WBC 17 H Urine Bacteria FEW A Urine Mucus FEW A Urine Hemoglobin NEGATIVE Urine Glucose NEGATIVE Urine Total Protein 1+ H Medications Medications Current Medications Senna/Docusate Sodium (Senokot-S) 1 tab BID PO ; Start 02/25/17 at 21:00 Magnesium Hydroxide (Milk Of Mag) 30 ml HS PO ; Start 02/27/17 at 21:00 Bisacodyl 10 mg 10 mg DAILY PRN [place] CONSTIPATION; Start 02/25/17 at 13:30 Sodium Chloride (NS) 1,000 ml @ 100 mls/hr Q10H IV Last administered on t 22:06; Admin Dose 100 MLS/HR; Start 02/25/17 at 13:22 Oxycodone/ Acetaminophen (Percocet (5/ 325)) 2 tab Q4H PRN PO PAIN; Start 02/25 at 13:30 Morphine Sulfate (morphine) 5 mg Q4H PRN IV PAIN LEVEL 7-10 Last administered on 02/26/17 02:57; Admin Dose 5 MG; Start 02/25/17 at 13:30 Ondansetron HCl (Zofran Inj) 4 mg Q4H PRN IV NAUSEA AND/OR VOMITING Last administered on 02/26/17 02:44; Admin Dose 4 MG; Start 02/25/17 at 13:30 Diphenhydramine HCl 25 mg 25 mg Q4H PRN PO ITCHING; Start 02/25/17 at 13:30 Cefazolin Sodium/ Dextrose (Ancef 2 Gm/50 ml (Pmx)) 50 ml @ 100 mls/hr Q8 IVPB Last administered on 02/26/17 06:05; Admin Dose 100 MLS/HR; Start 02/25/17 at 14:00; Stop 02/27/17 at 06:29 Atorvastatin Calcium (Lipitor) 10 mg QHS PO ; Start 02/25/17 at 21:00 Bisacodyl (Dulcolax Supp) 10 mg DAILY PRN [place] CONSTIPATION; Start 02/25/17 at 20 :00 Docusate Sodium (Colace) 100 mg BID PO ; Start 02/25/17 at 21:00 Levothyroxine Sodium (Synthroid) 175 mcg DAILY@06 PO Last administered on 06:36; Admin Dose 175 MCG; Start 02/26/17 at 06:00 Lisinopril (Zestril) 20 mg DAILY PO ; Start 02/26/17 at 09:00 Magnesium Hydroxide (Milk Of Mag) 30 ml Q24H PRN PO CONSTIPATION; Start at 20:00 Polyethylene Glycol (Miralax) 17 gm DAILY PO ; Start 02/26/17 at 09:00 Sotalol HCl (Betapace) 160 mg BID PO Last administered on 02/25/17 22:10; Admin Dose 160 MG; Start 02/25/17 at 21:00 Trazodone HCl (Desyrel) 300 mg QHS PO ; Start 02/25/17 at 21:00 Pantoprazole (Protonix Tab) 40 mg DAILY@06 PO Last administered on 02/26/17 06: 36; Admin Dose 40 MG; Start 02/26/17 at 06:00 Sodium Biphosphate/ Sodium Phosphate (Fleet Enema) 133 ml Q48H PRN [place] CONSTIPATION; Start 02/25/17 at 20:00 Clonidine (Catapres) 0.1 mg Q6H PRN PO ELEVATED BLOOD PRESSURE Last administered on 02/25/17 23:19; Admin Dose 0.1 MG; Start 02/25/17 at 20:00 Metoclopramide HCl (Reglan) 10 mg Q6H PRN IV NAUSEA Last administered on 06:01; Admin Dose 10 MG; Start 02/25/17 at 20:00 Carbamazepine (Tegretol Xr) 400 mg Q12 PO Last administered on 02/25/17 22:26 ; Admin Dose 400 MG; Start 02/25/17 at 21:00 Naloxone HCl (Narcan) 0.2 mg Q2M PRN IV RR 8 BREATHS/MIN OR LESS; Start at 08:30 Morphine Sulfate (morphine) 4 hour limit for 30 mg Q4PCA IV ; Start 02/26/17 at 08:30 CHUCK MCCRACKEN MD Feb 26, 2017 08:53
[2017-02-26] MEDS ORDERED: LORAZEPAM 1 MG TAB PO PRN (09:00)
[2017-02-26] MEDS: POLYETHYLENE GLYCOL 17 GM PACKET PO SCH (09:32)
[2017-02-26] MEDS: DOCUSATE SODIUM 100 MG CAP PO SCH ×2 (09:54→20:19)
[2017-02-26] MEDS: SENNA/DOCUSATE NA (8.6MG/50MG) TAB PO SCH ×2 (09:54→20:21)
[2017-02-26] MEDS: LISINOPRIL 20 MG TAB PO SCH (09:55)
[2017-02-26] MEDS: SOTALOL 80 MG TAB PO SCH ×2 (09:57→11:05)
[2017-02-26] MEDS: carBAMAZepine (XR) 100 MG TABSR PO SCH ×2 (12:09→20:23)
[2017-02-26 14:36] LABS: BASOPHILS % 0.4 % (0.0-2.0); EOSINOPHILS % 0.4 % (0.0-7.0); HEMATOCRIT 33.9 % (37.0-47.0); HEMOGLOBIN 11.4 g/dl (12.0-16.0); LYMPHOCYTES # 1.6 10^3/ul (0.8-2.9); LYMPHOCYTES % 18.9 % (15.0-51.0); MEAN CORPUSCULAR HEMOGLOBIN 31.6 pg (29.0-33.0); MEAN CORPUSCULAR HGB CONC 33.6 g/dl (32.0-37.0); MEAN CORPUSCULAR VOLUME 93.9 fl (82.0-101.0); MEAN PLATELET VOLUME 8.6 fl (7.4-10.4); MONOCYTE # 1.2 10^3/ul (0.3-0.9); MONOCYTES % 14.5 % (0.0-11.0); NEUTROPHIL # 5.4 10^3/ul (1.6-7.5); NEUTROPHILS % 65.1 % (39.0-77.0); PLATELET COUNT 408 10^3/UL (140-415); RED BLOOD COUNT 3.61 10^6/ul (4.20-5.40); RED CELL DISTRIBUTION WIDTH 12.8 % (11.5-14.5); WHITE BLOOD COUNT 8.3 10^3/ul (4.8-10.8)
[2017-02-26 14:54] LABS: ALBUMIN 3.4 g/dl (3.3-4.9); ALBUMIN/GLOBULIN RATIO 1.17; BILIRUBIN,INDIRECT 0.2 mg/dl (0-1.1); BILIRUBIN,TOTAL 0.2 mg/dl (0.2-1.3); CALCIUM 8.7 mg/dl (8.4-10.2); CREATININE 0.69 mg/dl (0.44-1.00); POTASSIUM 4.2 mmol/L (3.5-5.1); TOTAL PROTEIN 6.3 g/dl (6.1-8.1)
[2017-02-26] MEDS: RIVAROXABAN 10 MG TABLET PO SCH (18:36)
[2017-02-26] MEDS: traZODone 100 MG TAB PO SCH (20:20)
[2017-02-26] MEDS: ATORVASTATIN 10 MG TAB PO SCH (20:21)
[2017-02-26] MEDS: CARISOPRODOL 350 MG TAB PO PRN (22:06)
[2017-02-27] MEDS: OXYCODONE/ACETAMINOPHEN (5/325) TAB PO PRN ×4 (03:33→21:51)
[2017-02-27] MEDS: LEVOTHYROXINE 175 MCG TAB PO SCH (05:32)
[2017-02-27] MEDS: SOD CHLORIDE 0.9% 1,000 ML IV SCH ×2 (05:32→17:44)
[2017-02-27] MEDS: PANTOPRAZOLE (EC) 40 MG TAB PO SCH (05:32)
[2017-02-27] MEDS: CEFAZOLIN 2 GM/50 ML (PMX) 50 ML IVPB SCH (05:32)
--- NOTE | 2017-02-27 07:00 | PN ---
Date/Time of Note Date/Time of Note DATE: 02/27/17 TIME: 06:52 Assessment/Plan VTE Prophylaxis VTE Prophylaxis Intervention: ambulation, SCD's Lines/Catheters IV Catheter Type (from Nrsg): Peripheral IV Urinary Cath still in place: Yes Reason Cath still needed: other (indicate) (Will plan to discontinue today) Assessment/Plan Chief Complaint/Hosp Course Right ankle fracture Problems: Assessment/Plan 66 yo F with right ankle evangelina fracture s/p ORIF - Continue RLE elevation - Continue po pain meds with INSOLE REINFORCER (will plan to wean off INSOLE REINFORCER today) - Continue DVT prophy - Discontinue Nelson - PT - Dispo: Discharge likely to SNF when cleared by PT Subjective 24 Hr Interval Summary Free Text/Dictation No acute events overnight. Patient reports she slept well and her pain has been well controlled. She denies chest pain, shortness of breath, or lower extremity numbness/tingling. She is looking forward to working with physical therapy today. Constitutional: no complaints Respiratory: no complaints Cardiovascular: no complaints Gastrointestinal: no complaints Exam/Review of Systems Vital Signs Vitals Vital Signs Date Time Temp Pulse Resp B/P Pulse Ox O2 Delivery O2 Flow Rate FiO2 02/27/17 04:57 18 02/26/17 20:25 98.1 76 170/81 99 02/26/17 19:59 Nasal Cannula 02/26/17 08:00 2.0 Intake and Output 02/26/17 02/26/17 02/27/17 15:00 23:00 07:00 Intake Total 200 ml 1950 ml 2200 ml Output Total 2200 ml 1700 ml Balance 200 ml -250 ml 500 ml Exam In general patient resting comfortably in bed in no acute distress. RLE: Short leg cast in place with leg elevated. SILT in toes distally. Patient able to wiggle toes. Toes warm and well perfused. Constitutional: alert Psych: no complaints Results Result Diagram: 02/26/17 1400 02/26/17 1400 Results 24 hrs Laboratory Tests Test 02/26/17 14:00 02/27/17 05:01 White Blood Count 8.3 Red Blood Count 3.61 L Hemoglobin 11.4 L Hematocrit 33.9 L Mean Corpuscular Volume 93.9 Mean Corpuscular Hemoglobin 31.6 Mean Corpuscular Hemoglobin Concent 33.6 Red Cell Distribution Width 12.8 Platelet Count 408 # Mean Platelet Volume 8.6 Neutrophils % 65.1 Lymphocytes % 18.9 Monocytes % 14.5 H Eosinophils % 0.4 Basophils % 0.4 Nucleated Red Blood Cells % 0.0 Neutrophils # 5.4 Lymphocytes # 1.6 Monocytes # 1.2 H Eosinophils # 0.0 Basophils # 0.0 Nucleated Red Blood Cells # 0.0 Sodium Level 128 L Potassium Level 4.2 Chloride Level 92 L Carbon Dioxide Level 24 Anion Gap 16 Blood Urea Nitrogen 10 Creatinine 0.69 Glucose Level 121 Calcium Level 8.7 8.8 Total Bilirubin 0.2 Direct Bilirubin 0.00 Indirect Bilirubin 0.2 Aspartate Amino Transf (AST/SGOT) 27 Alanine Aminotransferase (ALT/SGPT) 30 Alkaline Phosphatase 70 Total Protein 6.3 Albumin 3.4 Globulin 2.90 Albumin/Globulin Ratio 1.17 Medications Medications Current Medications Senna/Docusate Sodium (Senokot-S) 1 tab BID PO Last administered on 02/26/17 20 :21; Admin Dose 1 TAB; Start 02/25/17 at 21:00 Magnesium Hydroxide (Milk Of Mag) 30 ml HS PO ; Start 02/27/17 at 21:00 Bisacodyl 10 mg 10 mg DAILY PRN [place] CONSTIPATION; Start 02/25/17 at 13:30 Sodium Chloride (NS) 1,000 ml @ 100 mls/hr Q10H IV Last administered on 05:32; Admin Dose 100 MLS/HR; Start 02/25/17 at 13:22 Oxycodone/ Acetaminophen (Percocet (5/ 325)) 2 tab Q4H PRN PO PAIN Last administered on 02/27/17 03:33; Admin Dose 2 TAB; Start 02/25/17 at 13:30 Morphine Sulfate (morphine) 5 mg Q4H PRN IV PAIN LEVEL 7-10 Last administered on 02/26/17 02:57; Admin Dose 5 MG; Start 02/25/17 at 13:30 Ondansetron HCl (Zofran Inj) 4 mg Q4H PRN IV NAUSEA AND/OR VOMITING Last administered on 02/26/17 02:44; Admin Dose 4 MG; Start 02/25/17 at 13:30 Diphenhydramine HCl (Benadryl) 25 mg Q4H PRN PO ITCHING; Start 02/25/17 at 13: 30 Atorvastatin Calcium (Lipitor) 10 mg QHS PO Last administered on 02/26/17 20:21 ; Admin Dose 10 MG; Start 02/25/17 at 21:00 Bisacodyl (Dulcolax Supp) 10 mg DAILY PRN [place] CONSTIPATION; Start 02/25/17 at 20 :00 Docusate Sodium (Colace) 100 mg BID PO Last administered on 02/26/17 20:19; Admin Dose 100 MG; Start 02/25/17 at 21:00 Levothyroxine Sodium (Synthroid) 175 mcg DAILY@06 PO Last administered on 05:32; Admin Dose 175 MCG; Start 02/26/17 at 06:00 Lisinopril (Zestril) 20 mg DAILY PO Last administered on 02/26/17 09:55; Admin Dose 20 MG; Start 02/26/17 at 09:00 Magnesium Hydroxide (Milk Of Mag) 30 ml Q24H PRN PO CONSTIPATION; Start at 20:00 Polyethylene Glycol (Miralax) 17 gm DAILY PO Last administered on 02/26/17 09: 32; Admin Dose 17 GM; Start 02/26/17 at 09:00 Sotalol HCl (Betapace) 160 mg BID PO Last administered on 02/26/17 11:05; Admin Dose 160 MG; Start 02/25/17 at 21:00 Trazodone HCl (Desyrel) 300 mg QHS PO Last administered on 02/26/17 20:20; Admin Dose 300 MG; Start 02/25/17 at 21:00 Pantoprazole (Protonix Tab) 40 mg DAILY@06 PO Last administered on 02/27/17 05: 32; Admin Dose 40 MG; Start 02/26/17 at 06:00 Sodium Biphosphate/ Sodium Phosphate (Fleet Enema) 133 ml Q48H PRN [place] CONSTIPATION; Start 02/25/17 at 20:00 Clonidine (Catapres) 0.1 mg Q6H PRN PO ELEVATED BLOOD PRESSURE Last administered on 02/26/17 20:20; Admin Dose 0.1 MG; Start 02/25/17 at 20:00 Metoclopramide HCl (Reglan) 10 mg Q6H PRN IV NAUSEA Last administered on 06:01; Admin Dose 10 MG; Start 02/25/17 at 20:00 Carbamazepine (Tegretol Xr) 400 mg Q12 PO Last administered on 02/26/17 20:23; Admin Dose 400 MG; Start 02/25/17 at 21:00 Naloxone HCl (Narcan) 0.2 mg Q2M PRN IV RR 8 BREATHS/MIN OR LESS; Start at 08:30 Morphine Sulfate (morphine) 4 hour limit for 30 mg Q4PCA IV Last administered on 02/26/17 16:16; Admin Dose 30 MG; Start 02/26/17 at 08:30 Lorazepam (Ativan) 1 mg Q6H PRN PO ANXIETY; Start 02/26/17 at 09:00 Carisoprodol (Soma) 350 mg TID PRN PO MUSCLE SPASMS Last administered on 22:06; Admin Dose 350 MG; Start 02/26/17 at 13:00 IFRAH SPRINGER MD Feb 27, 2017 07:00
[2017-02-27 08:00] VITALS: BP 133/81; RESP 15
[2017-02-27 09:02] LABS: ALBUMIN 3.1 g/dl (3.3-4.9); ALBUMIN/GLOBULIN RATIO 1.06; CALCIUM 8.8 mg/dl (8.4-10.2); CREATININE 0.62 mg/dl (0.44-1.00)
[2017-02-27 09:07] LABS: BASOPHILS % 0.6 % (0.0-2.0); EOSINOPHILS # 0.2 10^3/ul (0.0-0.5); EOSINOPHILS % 2.2 % (0.0-7.0); HEMATOCRIT 32.3 % (37.0-47.0); HEMOGLOBIN 10.9 g/dl (12.0-16.0); LYMPHOCYTES # 1.1 10^3/ul (0.8-2.9); LYMPHOCYTES % 15.8 % (15.0-51.0); MEAN CORPUSCULAR HEMOGLOBIN 32.4 pg (29.0-33.0); MEAN CORPUSCULAR HGB CONC 33.7 g/dl (32.0-37.0); MEAN CORPUSCULAR VOLUME 96.1 fl (82.0-101.0); MEAN PLATELET VOLUME 8.8 fl (7.4-10.4); MONOCYTE # 1.2 10^3/ul (0.3-0.9); NEUTROPHIL # 4.7 10^3/ul (1.6-7.5); NEUTROPHILS % 64.7 % (39.0-77.0); PLATELET COUNT 380 10^3/UL (140-415); RED BLOOD COUNT 3.36 10^6/ul (4.20-5.40); RED CELL DISTRIBUTION WIDTH 12.8 % (11.5-14.5); WHITE BLOOD COUNT 7.2 10^3/ul (4.8-10.8)
[2017-02-27 09:10] LABS: MONOCYTES % 16.1 % (0.0-11.0)
[2017-02-27] MEDS: POLYETHYLENE GLYCOL 17 GM PACKET PO SCH (09:56)
[2017-02-27] MEDS: DOCUSATE SODIUM 100 MG CAP PO SCH ×2 (09:56→21:23)
[2017-02-27] MEDS: SENNA/DOCUSATE NA (8.6MG/50MG) TAB PO SCH ×2 (09:56→21:23)
[2017-02-27] MEDS: SOTALOL 80 MG TAB PO SCH ×2 (09:56→21:22)
[2017-02-27] MEDS: LISINOPRIL 20 MG TAB PO SCH (09:57)
[2017-02-27] MEDS: carBAMAZepine (XR) 100 MG TABSR PO SCH ×2 (09:57→21:23)
[2017-02-27] MEDS: morphine 1 MG/ML 30 ML (PCA) IV SCH ×2 (10:09→18:46)
[2017-02-27] MEDS: CARISOPRODOL 350 MG TAB PO PRN ×3 (11:33→21:49)
--- NOTE | 2017-02-27 13:42 | CONS ---
Date/Time of Note Date/Time of Note DATE: 02/27/17 TIME: 13:38 Assessment/Plan Assessment/Plan Chief Complaint/Hosp Course 1. She is 2 days post op a R ankle surgery for fracture . She is having less pain on her current analgesic regimen. She was able to work with physical therapy today. She is overall doing better. Continue current medication and physical therapy as tolerated. 2. HTN, controlled 3. h/o A fib , now in sinus , she has a permanent cardiac pacemaker 5 hypothyroidism 6. Hyponatremia, correcting 7. Anxiety disorder improved and controlled. Problems: Consultation Date/Type/Reason Admit Date/Time Feb 26, 2017 at 21:27 Type of Consultation: medicine 24 HR Interval Summary Free Text/Dictation She is feeling better today. She is having less pain. She has been able to work with physical therapy. Constitutional: improved Exam/Review of Systems Vital Signs Vitals Vital Signs Date Time Temp Pulse Resp B/P Pulse Ox O2 Delivery O2 Flow Rate FiO2 02/27/17 08:00 98.2 77 15 133/81 100 02/26/17 19:59 Nasal Cannula 02/26/17 08:00 2.0 Intake and Output 02/26/17 02/26/17 02/27/17 15:00 23:00 07:00 Intake Total 200 ml 1950 ml 2200 ml Output Total 2200 ml 1700 ml Balance 200 ml -250 ml 500 ml Exam Constitutional: alert, obese, oriented Respiratory: clear to auscultation, normal air movement Cardiovascular: regular rate and rhythm Gastrointestinal: soft Musculoskeletal: nl extremities to inspection Results Result Diagram: 02/27/17 0501 02/27/17 0501 Results 24 hrs Laboratory Tests Test 02/26/17 14:00 02/27/17 05:01 White Blood Count 8.3 7.2 Red Blood Count 3.61 L 3.36 L Hemoglobin 11.4 L 10.9 L Hematocrit 33.9 L 32.3 L Mean Corpuscular Volume 93.9 96.1 Mean Corpuscular Hemoglobin 31.6 32.4 Mean Corpuscular Hemoglobin Concent 33.6 33.7 Red Cell Distribution Width 12.8 12.8 Platelet Count 408 # 380 Mean Platelet Volume 8.6 8.8 Neutrophils % 65.1 64.7 Lymphocytes % 18.9 15.8 Monocytes % 14.5 H 16.1 H Eosinophils % 0.4 2.2 Basophils % 0.4 0.6 Nucleated Red Blood Cells % 0.0 0.0 Neutrophils # 5.4 4.7 Lymphocytes # 1.6 1.1 Monocytes # 1.2 H 1.2 H Eosinophils # 0.0 0.2 Basophils # 0.0 0.0 Nucleated Red Blood Cells # 0.0 0.0 Sodium Level 128 L 130 L Potassium Level 4.2 4.0 Chloride Level 92 L 92 L Carbon Dioxide Level 24 25 Anion Gap 16 17 H Blood Urea Nitrogen 10 9 Creatinine 0.69 0.62 Glucose Level 121 125 Calcium Level 8.7 8.8 Total Bilirubin 0.2 0.0 L Direct Bilirubin 0.00 0.00 Indirect Bilirubin 0.2 0.0 Aspartate Amino Transf (AST/SGOT) 27 23 Alanine Aminotransferase (ALT/SGPT) 30 24 Alkaline Phosphatase 70 67 Total Protein 6.3 6.0 L Albumin 3.4 3.1 L Globulin 2.90 2.90 Albumin/Globulin Ratio 1.17 1.06 Vitamin D 1,25-Dihydroxy 45.5 Medications Medications Current Medications Senna/Docusate Sodium (Senokot-S) 1 tab BID PO Last administered on 02/27/17 09 :56; Admin Dose 1 TAB; Start 02/25/17 at 21:00 Magnesium Hydroxide (Milk Of Mag) 30 ml HS PO ; Start 02/27/17 at 21:00 Bisacodyl 10 mg 10 mg DAILY PRN [place] CONSTIPATION; Start 02/25/17 at 13:30 Sodium Chloride (NS) 1,000 ml @ 40 mls/hr Q24H IV Last administered on 05:32; Admin Dose 100 MLS/HR; Start 02/25/17 at 13:22 Oxycodone/ Acetaminophen (Percocet (5/ 325)) 2 tab Q4H PRN PO PAIN Last administered on 02/27/17 10:08; Admin Dose 2 TAB; Start 02/25/17 at 13:30 Morphine Sulfate (morphine) 5 mg Q4H PRN IV PAIN LEVEL 7-10 Last administered on 02/26/17 02:57; Admin Dose 5 MG; Start 02/25/17 at 13:30 Ondansetron HCl (Zofran Inj) 4 mg Q4H PRN IV NAUSEA AND/OR VOMITING Last administered on 02/26/17 02:44; Admin Dose 4 MG; Start 02/25/17 at 13:30 Diphenhydramine HCl (Benadryl) 25 mg Q4H PRN PO ITCHING; Start 02/25/17 at 13: 30 Atorvastatin Calcium (Lipitor) 10 mg QHS PO Last administered on 02/26/17 20:21 ; Admin Dose 10 MG; Start 02/25/17 at 21:00 Bisacodyl (Dulcolax Supp) 10 mg DAILY PRN [place] CONSTIPATION; Start 02/25/17 at 20 :00 Docusate Sodium (Colace) 100 mg BID PO Last administered on 02/27/17 09:56; Admin Dose 100 MG; Start 02/25/17 at 21:00 Levothyroxine Sodium (Synthroid) 175 mcg DAILY@06 PO Last administered on 05:32; Admin Dose 175 MCG; Start 02/26/17 at 06:00 Lisinopril (Zestril) 20 mg DAILY PO Last administered on 02/27/17 09:57; Admin Dose 20 MG; Start 02/26/17 at 09:00 Magnesium Hydroxide (Milk Of Mag) 30 ml Q24H PRN PO CONSTIPATION; Start at 20:00 Polyethylene Glycol (Miralax) 17 gm DAILY PO Last administered on 02/27/17 09: 56; Admin Dose 17 GM; Start 02/26/17 at 09:00 Sotalol HCl (Betapace) 160 mg BID PO Last administered on 02/27/17 09:56; Admin Dose 160 MG; Start 02/25/17 at 21:00 Trazodone HCl (Desyrel) 300 mg QHS PO Last administered on 02/26/17 20:20; Admin Dose 300 MG; Start 02/25/17 at 21:00 Pantoprazole (Protonix Tab) 40 mg DAILY@06 PO Last administered on 02/27/17 05: 32; Admin Dose 40 MG; Start 02/26/17 at 06:00 Sodium Biphosphate/ Sodium Phosphate (Fleet Enema) 133 ml Q48H PRN [place] CONSTIPATION; Start 02/25/17 at 20:00 Clonidine (Catapres) 0.1 mg Q6H PRN PO ELEVATED BLOOD PRESSURE Last administered on 02/26/17 20:20; Admin Dose 0.1 MG; Start 02/25/17 at 20:00 Metoclopramide HCl (Reglan) 10 mg Q6H PRN IV NAUSEA Last administered on 06:01; Admin Dose 10 MG; Start 02/25/17 at 20:00 Carbamazepine (Tegretol Xr) 400 mg Q12 PO Last administered on 02/27/17 09:57; Admin Dose 400 MG; Start 02/25/17 at 21:00 Naloxone HCl (Narcan) 0.2 mg Q2M PRN IV RR 8 BREATHS/MIN OR LESS; Start at 08:30 Morphine Sulfate (morphine) 4 hour limit for 30 mg Q4PCA IV Last administered on 02/27/17 10:09; Admin Dose 30 MG; Start 02/26/17 at 08:30 Lorazepam (Ativan) 1 mg Q6H PRN PO ANXIETY; Start 02/26/17 at 09:00 Carisoprodol (Soma) 350 mg TID PRN PO MUSCLE SPASMS Last administered on 11:33; Admin Dose 350 MG; Start 02/26/17 at 13:00 CHUCK MCCRACKEN MD Feb 27, 2017 13:42
[2017-02-27 15:21] VITALS: BP 153/70; RESP 15
[2017-02-27] MEDS: RIVAROXABAN 10 MG TABLET PO SCH (17:43)
[2017-02-27 19:58] VITALS: BP 113/66; RESP 18
[2017-02-27] MEDS: MAGNESIUM HYDROXIDE 30ML CUP PO SCH ×2 (21:00→21:21)
[2017-02-27] MEDS: ATORVASTATIN 10 MG TAB PO SCH (21:22)
[2017-02-27] MEDS: traZODone 100 MG TAB PO SCH (21:22)
[2017-02-28 02:39] VITALS: BP 116/70; RESP 18
[2017-02-28] MEDS: LEVOTHYROXINE 175 MCG TAB PO SCH (05:33)
[2017-02-28] MEDS: PANTOPRAZOLE (EC) 40 MG TAB PO SCH (05:33)
[2017-02-28] MEDS: CARISOPRODOL 350 MG TAB PO PRN ×3 (05:34→17:02)
[2017-02-28] MEDS: OXYCODONE/ACETAMINOPHEN (5/325) TAB PO PRN ×5 (05:34→22:24)
--- NOTE | 2017-02-28 05:59 | PN ---
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 SNF when cleared by PT Subjective 24 Hr Interval Summary Free Text/Dictation No acute events overnight. Patient reports that she slept well and her pain has been well controlled. She denies chest pain, SOB, or lower extremity numbness/ tingling. Doing well overall. Constitutional: no complaints Respiratory: no complaints Cardiovascular: no complaints Gastrointestinal: no complaints Exam/Review of Systems Vital Signs Vitals Vital Signs Date Time Temp Pulse Resp B/P Pulse Ox O2 Delivery O2 Flow Rate FiO2 02/28/17 02:39 98.1 81 18 116/70 98 02/27/17 08:30 Nasal Cannula 2.0 Intake and Output 02/27/17 02/27/17 02/28/17 15:00 23:00 07:00 Intake Total 450 ml 2230 ml 500 ml Output Total 2000 ml 700 ml Balance 450 ml 230 ml -200 ml Exam In general patient resting comfortably in hospital bed in NAD. Answering questions appropriately. Alert and oriented. Right Lower Extremity Examination: Short leg cast in place appears to be well fitting. Wiggles Toes. SILT in toes distally. Toes warm and well perfused. Constitutional: alert, oriented Results Result Diagram: 02/27/17 0501 02/27/17 0501 Medications Medications Current Medications Senna/Docusate Sodium (Senokot-S) 1 tab BID PO Last administered on 02/27/17t 21 :23; Admin Dose 1 TAB; Start 02/25/17 at 21:00 Magnesium Hydroxide (Milk Of Mag) 30 ml HS PO ; Start 02/27/17 at 21:00 Bisacodyl 10 mg 10 mg DAILY PRN [place] CONSTIPATION; Start 02/25/17 at 13:30 Sodium Chloride (NS) 1,000 ml @ 40 mls/hr Q24H IV Last administered on 17:44; Admin Dose 40 MLS/HR; Start 02/25/17 at 13:22 Oxycodone/ Acetaminophen (Percocet (5/ 325)) 2 tab Q4H PRN PO PAIN Last administered on 02/28/17 05:34; Admin Dose 2 TAB; Start 02/25/17 at 13:30 Morphine Sulfate (morphine) 5 mg Q4H PRN IV PAIN LEVEL 7-10 Last administered on 02/26/17 02:57; Admin Dose 5 MG; Start 02/25/17 at 13:30 Ondansetron HCl (Zofran Inj) 4 mg Q4H PRN IV NAUSEA AND/OR VOMITING Last administered on 02/26/17 02:44; Admin Dose 4 MG; Start 02/25/17 at 13:30 Diphenhydramine HCl (Benadryl) 25 mg Q4H PRN PO ITCHING; Start 02/25/17 at 13: 30 Atorvastatin Calcium (Lipitor) 10 mg QHS PO Last administered on 02/27/17 21:22 ; Admin Dose 10 MG; Start 02/25/17 at 21:00 Bisacodyl (Dulcolax Supp) 10 mg DAILY PRN [place] CONSTIPATION; Start 02/25/17 at 20 :00 Docusate Sodium (Colace) 100 mg BID PO Last administered on 02/27/17 21:23; Admin Dose 100 MG; Start 02/25/17 at 21:00 Levothyroxine Sodium (Synthroid) 175 mcg DAILY@06 PO Last administered on 05:33; Admin Dose 175 MCG; Start 02/26/17 at 06:00 Lisinopril (Zestril) 20 mg DAILY PO Last administered on 02/27/17 09:57; Admin Dose 20 MG; Start 02/26/17 at 09:00 Magnesium Hydroxide (Milk Of Mag) 30 ml Q24H PRN PO CONSTIPATION; Start at 20:00 Polyethylene Glycol (Miralax) 17 gm DAILY PO Last administered on 02/27/17 09: 56; Admin Dose 17 GM; Start 02/26/17 at 09:00 Sotalol HCl (Betapace) 160 mg BID PO Last administered on 02/27/17 21:22; Admin Dose 160 MG; Start 02/25/17 at 21:00 Trazodone HCl (Desyrel) 300 mg QHS PO Last administered on 02/27/17 21:22; Admin Dose 300 MG; Start 02/25/17 at 21:00 Pantoprazole (Protonix Tab) 40 mg DAILY@06 PO Last administered on 02/28/17 05: 33; Admin Dose 40 MG; Start 02/26/17 at 06:00 Sodium Biphosphate/ Sodium Phosphate (Fleet Enema) 133 ml Q48H PRN [place] CONSTIPATION; Start 02/25/17 at 20:00 Clonidine (Catapres) 0.1 mg Q6H PRN PO ELEVATED BLOOD PRESSURE Last administered on 02/26/17 20:20; Admin Dose 0.1 MG; Start 02/25/17 at 20:00 Metoclopramide HCl (Reglan) 10 mg Q6H PRN IV NAUSEA Last administered on 06:01; Admin Dose 10 MG; Start 02/25/17 at 20:00 Carbamazepine (Tegretol Xr) 400 mg Q12 PO Last administered on 02/27/17 21:23; Admin Dose 400 MG; Start 02/25/17 at 21:00 Naloxone HCl (Narcan) 0.2 mg Q2M PRN IV RR 8 BREATHS/MIN OR LESS; Start at 08:30 Morphine Sulfate (morphine) 4 hour limit for 30 mg Q4PCA IV Last administered on 02/27/17 18:46; Admin Dose 30 MG; Start 02/26/17 at 08:30 Lorazepam (Ativan) 1 mg Q6H PRN PO ANXIETY; Start 02/26/17 at 09:00 Carisoprodol (Soma) 350 mg TID PRN PO MUSCLE SPASMS Last administered on 05:34; Admin Dose 350 MG; Start 02/26/17 at 13:00 IFRAH SPRINGER MD Feb 28, 2017 05:59
[2017-02-28] MEDS ORDERED: morphine 10 MG INJ IM PRN (08:00)
[2017-02-28 08:28] VITALS: BP 137/87; RESP 18
[2017-02-28] MEDS: LISINOPRIL 20 MG TAB PO SCH (09:34)
[2017-02-28] MEDS: DOCUSATE SODIUM 100 MG CAP PO SCH ×2 (09:34→20:57)
[2017-02-28] MEDS: POLYETHYLENE GLYCOL 17 GM PACKET PO SCH (09:35)
[2017-02-28] MEDS: SOTALOL 80 MG TAB PO SCH ×2 (09:35→20:55)
[2017-02-28] MEDS: SENNA/DOCUSATE NA (8.6MG/50MG) TAB PO SCH ×2 (09:39→20:56)
[2017-02-28] MEDS: carBAMAZepine (XR) 100 MG TABSR PO SCH ×2 (09:39→20:56)
[2017-02-28] MEDS: morphine 10 MG INJ IV PRN ×2 (12:41→17:09)
--- NOTE | 2017-02-28 13:55 | CONS ---
Date/Time of Note Date/Time of Note DATE: 02/28/17 TIME: 13:53 Assessment/Plan Assessment/Plan Chief Complaint/Hosp Course 1. She is 3 days post op a R ankle surgery for fracture . She is having less pain on her current analgesic regimen. She was able to work with physical therapy today. She is overall doing better. Continue current medication and physical therapy as tolerated. Discharge planning is working with her about either going to the acute rehab unit or to [facility]. 2. HTN, controlled 3. h/o A fib , now in sinus , she has a permanent cardiac pacemaker 5 hypothyroidism 6. Hyponatremia, correcting, will check labs in morning. 7. Anxiety disorder improved and controlled. Problems: Consultation Date/Type/Reason Admit Date/Time Feb 26, 2017 at 21:27 Type of Consultation: medicine 24 HR Interval Summary Free Text/Dictation She is feeling better today. Her pain is coming under control. She is eating well. Constitutional: improved, no complaints Exam/Review of Systems Vital Signs Vitals Vital Signs Date Time Temp Pulse Resp B/P Pulse Ox O2 Delivery O2 Flow Rate FiO2 02/28/17 08:28 98.1 82 18 137/87 100 02/27/17 08:30 Nasal Cannula 2.0 Intake and Output 02/27/17 02/27/17 02/28/17 15:00 23:00 07:00 Intake Total 450 ml 2230 ml 500 ml Output Total 2000 ml 700 ml Balance 450 ml 230 ml -200 ml Exam Her right ankle and leg are in a large cast. Constitutional: alert, oriented, well developed ENMT: nl external ears & nose Respiratory: clear to auscultation, normal air movement Cardiovascular: regular rate and rhythm Gastrointestinal: non-tender, soft Results Result Diagram: 02/27/17 0501 02/27/17 0501 Medications Medications Current Medications Senna/Docusate Sodium (Senokot-S) 1 tab BID PO Last administered on 02/28/17t 09 :39; Admin Dose 1 TAB; Start 02/25/17 at 21:00 Magnesium Hydroxide (Milk Of Mag) 30 ml HS PO ; Start 02/27/17 at 21:00 Bisacodyl (Dulcolax Supp) 10 mg DAILY PRN [place] CONSTIPATION; Start 02/25/17 at 13 :30 Oxycodone/ Acetaminophen (Percocet (5/ 325)) 2 tab Q4H PRN PO PAIN Last administered on 02/28/17 09:33; Admin Dose 2 TAB; Start 02/25/17 at 13:30 Morphine Sulfate (morphine) 5 mg Q4H PRN IV PAIN LEVEL 7-10 Last administered on 02/28/17 12:41; Admin Dose 5 MG; Start 02/25/17 at 13:30 Ondansetron HCl (Zofran Inj) 4 mg Q4H PRN IV NAUSEA AND/OR VOMITING Last administered on 02/26/17 02:44; Admin Dose 4 MG; Start 02/25/17 at 13:30 Diphenhydramine HCl (Benadryl) 25 mg Q4H PRN PO ITCHING; Start 02/25/17 at 13: 30 Atorvastatin Calcium (Lipitor) 10 mg QHS PO Last administered on 02/27/17 21:22 ; Admin Dose 10 MG; Start 02/25/17 at 21:00 Bisacodyl (Dulcolax Supp) 10 mg DAILY PRN [place] CONSTIPATION; Start 02/25/17 at 20 :00 Docusate Sodium (Colace) 100 mg BID PO Last administered on 02/28/17 09:34; Admin Dose 100 MG; Start 02/25/17 at 21:00 Levothyroxine Sodium (Synthroid) 175 mcg DAILY@06 PO Last administered on 05:33; Admin Dose 175 MCG; Start 02/26/17 at 06:00 Lisinopril (Zestril) 20 mg DAILY PO Last administered on 02/28/17 09:34; Admin Dose 20 MG; Start 02/26/17 at 09:00 Magnesium Hydroxide (Milk Of Mag) 30 ml Q24H PRN PO CONSTIPATION; Start at 20:00 Polyethylene Glycol (Miralax) 17 gm DAILY PO Last administered on 02/28/17 09: 35; Admin Dose 17 GM; Start 02/26/17 at 09:00 Sotalol HCl (Betapace) 160 mg BID PO Last administered on 02/28/17 09:35; Admin Dose 160 MG; Start 02/25/17 at 21:00 Trazodone HCl (Desyrel) 300 mg QHS PO Last administered on 02/27/17 21:22; Admin Dose 300 MG; Start 02/25/17 at 21:00 Pantoprazole (Protonix Tab) 40 mg DAILY@06 PO Last administered on 02/28/17 05: 33; Admin Dose 40 MG; Start 02/26/17 at 06:00 Sodium Biphosphate/ Sodium Phosphate (Fleet Enema) 133 ml Q48H PRN [place] CONSTIPATION; Start 02/25/17 at 20:00 Clonidine (Catapres) 0.1 mg Q6H PRN PO ELEVATED BLOOD PRESSURE Last administered on 02/26/17 20:20; Admin Dose 0.1 MG; Start 02/25/17 at 20:00 Metoclopramide HCl (Reglan) 10 mg Q6H PRN IV NAUSEA Last administered on 06:01; Admin Dose 10 MG; Start 02/25/17 at 20:00 Carbamazepine (Tegretol Xr) 400 mg Q12 PO Last administered on 02/28/17 09:39; Admin Dose 400 MG; Start 02/25/17 at 21:00 Naloxone HCl (Narcan) 0.2 mg Q2M PRN IV RR 8 BREATHS/MIN OR LESS; Start at 08:30 Lorazepam (Ativan) 1 mg Q6H PRN PO ANXIETY; Start 02/26/17 at 09:00 Carisoprodol (Soma) 350 mg TID PRN PO MUSCLE SPASMS Last administered on 09:35; Admin Dose 350 MG; Start 02/26/17 at 13:00 Morphine Sulfate (morphine) 4 mg Q4H PRN IM PAIN LEVEL 8-10; Start 02/28/17 at 08:00 CHUCK MCCRACKEN MD Feb 28, 2017 13:55
[2017-02-28 16:03] VITALS: BP 153/79; RESP 20
[2017-02-28] MEDS: RIVAROXABAN 10 MG TABLET PO SCH (17:09)
[2017-02-28 19:20] VITALS: BP 146/83; RESP 20
[2017-02-28] MEDS: ATORVASTATIN 10 MG TAB PO SCH (20:56)
[2017-02-28] MEDS: traZODone 100 MG TAB PO SCH (20:57)
[2017-02-28] MEDS: MAGNESIUM HYDROXIDE 30ML CUP PO SCH (20:57)
[2017-03-01 03:00] VITALS: BP 143/80; PULSE 75
[2017-03-01] MEDS: OXYCODONE/ACETAMINOPHEN (5/325) TAB PO PRN ×4 (04:36→17:09)
[2017-03-01 05:11] LABS: BASOPHIL # 0.1 10^3/ul (0.0-0.1); EOSINOPHILS # 0.3 10^3/ul (0.0-0.5); EOSINOPHILS % 5.3 % (0.0-7.0); HEMATOCRIT 29.5 % (37.0-47.0); HEMOGLOBIN 9.9 g/dl (12.0-16.0); LYMPHOCYTES # 1.6 10^3/ul (0.8-2.9); LYMPHOCYTES % 25.7 % (15.0-51.0); MEAN CORPUSCULAR HEMOGLOBIN 32.1 pg (29.0-33.0); MEAN CORPUSCULAR HGB CONC 33.6 g/dl (32.0-37.0); MEAN CORPUSCULAR VOLUME 95.8 fl (82.0-101.0); MEAN PLATELET VOLUME 8.7 fl (7.4-10.4); MONOCYTE # 0.7 10^3/ul (0.3-0.9); MONOCYTES % 11.3 % (0.0-11.0); NEUTROPHIL # 3.5 10^3/ul (1.6-7.5); NEUTROPHILS % 55.9 % (39.0-77.0); PLATELET COUNT 377 10^3/UL (140-415); RED BLOOD COUNT 3.08 10^6/ul (4.20-5.40); RED CELL DISTRIBUTION WIDTH 12.9 % (11.5-14.5); WHITE BLOOD COUNT 6.3 10^3/ul (4.8-10.8)
[2017-03-01 05:20] LABS: ALBUMIN 2.9 g/dl (3.3-4.9); ALBUMIN/GLOBULIN RATIO 1.03; BILIRUBIN,INDIRECT 0.2 mg/dl (0-1.1); BILIRUBIN,TOTAL 0.2 mg/dl (0.2-1.3); CALCIUM 8.7 mg/dl (8.4-10.2); CREATININE 0.64 mg/dl (0.44-1.00); POTASSIUM 4.5 mmol/L (3.5-5.1); TOTAL PROTEIN 5.7 g/dl (6.1-8.1)
[2017-03-01] MEDS: LEVOTHYROXINE 175 MCG TAB PO SCH (06:51)
[2017-03-01] MEDS: PANTOPRAZOLE (EC) 40 MG TAB PO SCH (06:51)
[2017-03-01 08:03] VITALS: BP 131/86; RESP 20
--- NOTE | 2017-03-01 08:35 | PN ---
Date/Time of Note Date/Time of Note DATE: 03/01/17 TIME: 08:30 Assessment/Plan VTE Prophylaxis VTE Prophylaxis Intervention: ambulation, SCD's Lines/Catheters Urinary Cath still in place: Yes Reason Cath still needed: urinary retention Assessment/Plan Chief Complaint/Hosp Course Right ankle fracture Problems: Assessment/Plan 66 yo F with right ankle evangelina fracture s/p ORIF on 02/25/17 - Continue RLE elevation - Continue po pain meds - DVT prophy: continue scds and early ambulation - PT - Dispo: Plan to discharge today to [facility] or rehab this morning Subjective 24 Hr Interval Summary Free Text/Dictation No acute events overnight. Pain well controlled. Patient reports she is doing well this morning. Patient had a bowel movement yesterday. Denies chest pain, shortness of breath, numbness/tingling or any other issues. Constitutional: no complaints Respiratory: no complaints Cardiovascular: no complaints Gastrointestinal: no complaints Exam/Review of Systems Vital Signs Vitals Vital Signs Date Time Temp Pulse Resp B/P Pulse Ox O2 Delivery O2 Flow Rate FiO2 03/01/17 08:03 98.4 79 20 131/86 100 02/27/17 08:30 Nasal Cannula 2.0 Intake and Output 02/28/17 02/28/17 03/01/17 15:00 23:00 07:00 Intake Total 1840 ml 600 ml Output Total 1500 ml 1300 ml Balance 340 ml -700 ml Exam In general in no acute distress. Resting comfortably in bed. Right Lower Extremity Examination: Elevated with short leg cast in place. No irritation around cast edges. Wiggles toes and SILT in toes throughout. Toes warm and well perfused. Constitutional: alert, oriented Psych: no complaints Results Result Diagram: 03/01/17 0434 03/01/17 0434 Results 24 hrs Laboratory Tests Test 03/01/17 04:34 White Blood Count 6.3 Red Blood Count 3.08 L Hemoglobin 9.9 L Hematocrit 29.5 L Mean Corpuscular Volume 95.8 Mean Corpuscular Hemoglobin 32.1 Mean Corpuscular Hemoglobin Concent 33.6 Red Cell Distribution Width 12.9 Platelet Count 377 Mean Platelet Volume 8.7 Neutrophils % 55.9 Lymphocytes % 25.7 Monocytes % 11.3 H Eosinophils % 5.3 Basophils % 1.0 Nucleated Red Blood Cells % 0.0 Neutrophils # 3.5 Lymphocytes # 1.6 Monocytes # 0.7 Eosinophils # 0.3 Basophils # 0.1 Nucleated Red Blood Cells # 0.0 Sodium Level 132 L Potassium Level 4.5 Chloride Level 93 L Carbon Dioxide Level 29 Anion Gap 15 Blood Urea Nitrogen 6 L Creatinine 0.64 Glucose Level 94 Calcium Level 8.7 Total Bilirubin 0.2 Direct Bilirubin 0.00 Indirect Bilirubin 0.2 Aspartate Amino Transf (AST/SGOT) 18 Alanine Aminotransferase (ALT/SGPT) 26 Alkaline Phosphatase 65 Total Protein 5.7 L Albumin 2.9 L Globulin 2.80 Albumin/Globulin Ratio 1.03 Medications Medications Current Medications Senna/Docusate Sodium (Senokot-S) 1 tab BID PO Last administered on 02/28/17 20 :56; Admin Dose 1 TAB; Start 02/25/17 at 21:00 Magnesium Hydroxide (Milk Of Mag) 30 ml HS PO ; Start 02/27/17 at 21:00 Bisacodyl (Dulcolax Supp) 10 mg DAILY PRN [place] CONSTIPATION; Start 02/25/17 at 13 :30 Oxycodone/ Acetaminophen (Percocet (5/ 325)) 2 tab Q4H PRN PO PAIN Last administered on 03/01/17 04:36; Admin Dose 2 TAB; Start 02/25/17 at 13:30 Morphine Sulfate (morphine) 5 mg Q4H PRN IV PAIN LEVEL 7-10 Last administered on 02/28/17 17:09; Admin Dose 5 MG; Start 02/25/17 at 13:30 Ondansetron HCl (Zofran Inj) 4 mg Q4H PRN IV NAUSEA AND/OR VOMITING Last administered on 02/26/17 02:44; Admin Dose 4 MG; Start 02/25/17 at 13:30 Diphenhydramine HCl (Benadryl) 25 mg Q4H PRN PO ITCHING; Start 02/25/17 at 13: 30 Atorvastatin Calcium (Lipitor) 10 mg QHS PO Last administered on 02/28/17 20:56 ; Admin Dose 10 MG; Start 02/25/17 at 21:00 Bisacodyl (Dulcolax Supp) 10 mg DAILY PRN [place] CONSTIPATION; Start 02/25/17 at 20 :00 Docusate Sodium (Colace) 100 mg BID PO Last administered on 02/28/17 20:57; Admin Dose 100 MG; Start 02/25/17 at 21:00 Levothyroxine Sodium (Synthroid) 175 mcg DAILY@06 PO Last administered on 06:51; Admin Dose 175 MCG; Start 02/26/17 at 06:00 Lisinopril (Zestril) 20 mg DAILY PO Last administered on 02/28/17 09:34; Admin Dose 20 MG; Start 02/26/17 at 09:00 Magnesium Hydroxide (Milk Of Mag) 30 ml Q24H PRN PO CONSTIPATION; Start at 20:00 Polyethylene Glycol (Miralax) 17 gm DAILY PO Last administered on 02/28/17 09: 35; Admin Dose 17 GM; Start 02/26/17 at 09:00 Sotalol HCl (Betapace) 160 mg BID PO Last administered on 02/28/17 20:55; Admin Dose 160 MG; Start 02/25/17 at 21:00 Trazodone HCl (Desyrel) 300 mg QHS PO Last administered on 02/28/17 20:57; Admin Dose 300 MG; Start 02/25/17 at 21:00 Pantoprazole (Protonix Tab) 40 mg DAILY@06 PO Last administered on 03/01/17 06: 51; Admin Dose 40 MG; Start 02/26/17 at 06:00 Sodium Biphosphate/ Sodium Phosphate (Fleet Enema) 133 ml Q48H PRN [place] CONSTIPATION; Start 02/25/17 at 20:00 Clonidine (Catapres) 0.1 mg Q6H PRN PO ELEVATED BLOOD PRESSURE Last administered on 02/26/17 20:20; Admin Dose 0.1 MG; Start 02/25/17 at 20:00 Metoclopramide HCl (Reglan) 10 mg Q6H PRN IV NAUSEA Last administered on 06:01; Admin Dose 10 MG; Start 02/25/17 at 20:00 Carbamazepine (Tegretol Xr) 400 mg Q12 PO Last administered on 02/28/17 20:56; Admin Dose 400 MG; Start 02/25/17 at 21:00 Naloxone HCl (Narcan) 0.2 mg Q2M PRN IV RR 8 BREATHS/MIN OR LESS; Start at 08:30 Lorazepam (Ativan) 1 mg Q6H PRN PO ANXIETY; Start 02/26/17 at 09:00 Carisoprodol (Soma) 350 mg TID PRN PO MUSCLE SPASMS Last administered on t 17:02; Admin Dose 350 MG; Start 02/26/17 at 13:00 Morphine Sulfate (morphine) 4 mg Q4H PRN IM PAIN LEVEL 8-10; Start 02/28/17 at 08:00 IFRAH SPRINGER MD Mar 01, 2017 08:35
[2017-03-01] MEDS: POLYETHYLENE GLYCOL 17 GM PACKET PO SCH (09:07)
[2017-03-01] MEDS: DOCUSATE SODIUM 100 MG CAP PO SCH (09:08)
[2017-03-01] MEDS: SENNA/DOCUSATE NA (8.6MG/50MG) TAB PO SCH (09:08)
[2017-03-01] MEDS: carBAMAZepine (XR) 100 MG TABSR PO SCH (09:08)
[2017-03-01] MEDS: LISINOPRIL 20 MG TAB PO SCH (09:12)
[2017-03-01] MEDS: SOTALOL 80 MG TAB PO SCH (09:15)
--- NOTE | 2017-03-01 10:04 | CONS ---
Date/Time of Note Date/Time of Note DATE: 03/01/17 TIME: 10:01 Assessment/Plan Assessment/Plan Chief Complaint/Hosp Course 1. She is 4 days post op a R ankle surgery for fracture . She is having less pain on her current analgesic regimen. She was able to work with physical therapy today. She is overall doing better. Continue current medication and physical therapy as tolerated. Discharge planning is working with her about either going to the acute rehab unit or to [facility] today .I will follow after discharge . 2. HTN, controlled 3. h/o A fib , now in sinus , she has a permanent cardiac pacemaker 5 hypothyroidism 6. Hyponatremia, correcting, 7. Anxiety disorder improved and controlled. Problems: Consultation Date/Type/Reason Admit Date/Time Feb 26, 2017 at 21:27 Type of Consultation: medicine 24 HR Interval Summary Free Text/Dictation She is feeling better . Pain is under control . Constitutional: improved, no complaints Exam/Review of Systems Vital Signs Vitals Vital Signs Date Time Temp Pulse Resp B/P Pulse Ox O2 Delivery O2 Flow Rate FiO2 03/01/17 08:03 98.4 79 20 131/86 100 02/27/17 08:30 Nasal Cannula 2.0 Intake and Output 02/28/17 02/28/17 03/01/17 15:00 23:00 07:00 Intake Total 1840 ml 600 ml Output Total 1500 ml 1300 ml Balance 340 ml -700 ml Exam R foot , ankle and lower leg are in a large cast . Constitutional: alert, obese, oriented Neck: non-tender, supple Respiratory: clear to auscultation, normal air movement Cardiovascular: nl pulses, regular rate and rhythm Gastrointestinal: non-tender, soft Results Result Diagram: 03/01/17 0434 03/01/17 0434 Results 24 hrs Laboratory Tests Test 03/01/17 04:34 White Blood Count 6.3 Red Blood Count 3.08 L Hemoglobin 9.9 L Hematocrit 29.5 L Mean Corpuscular Volume 95.8 Mean Corpuscular Hemoglobin 32.1 Mean Corpuscular Hemoglobin Concent 33.6 Red Cell Distribution Width 12.9 Platelet Count 377 Mean Platelet Volume 8.7 Neutrophils % 55.9 Lymphocytes % 25.7 Monocytes % 11.3 H Eosinophils % 5.3 Basophils % 1.0 Nucleated Red Blood Cells % 0.0 Neutrophils # 3.5 Lymphocytes # 1.6 Monocytes # 0.7 Eosinophils # 0.3 Basophils # 0.1 Nucleated Red Blood Cells # 0.0 Sodium Level 132 L Potassium Level 4.5 Chloride Level 93 L Carbon Dioxide Level 29 Anion Gap 15 Blood Urea Nitrogen 6 L Creatinine 0.64 Glucose Level 94 Calcium Level 8.7 Total Bilirubin 0.2 Direct Bilirubin 0.00 Indirect Bilirubin 0.2 Aspartate Amino Transf (AST/SGOT) 18 Alanine Aminotransferase (ALT/SGPT) 26 Alkaline Phosphatase 65 Total Protein 5.7 L Albumin 2.9 L Globulin 2.80 Albumin/Globulin Ratio 1.03 Medications Medications Current Medications Senna/Docusate Sodium (Senokot-S) 1 tab BID PO Last administered on 03/01/17 09 :08; Admin Dose 1 TAB; Start 02/25/17 at 21:00 Magnesium Hydroxide (Milk Of Mag) 30 ml HS PO ; Start 02/27/17 at 21:00 Bisacodyl (Dulcolax Supp) 10 mg DAILY PRN [place] CONSTIPATION; Start 02/25/17 at 13 :30 Oxycodone/ Acetaminophen (Percocet (5/ 325)) 2 tab Q4H PRN PO PAIN Last administered on 03/01/17 09:12; Admin Dose 2 TAB; Start 02/25/17 at 13:30 Morphine Sulfate (morphine) 5 mg Q4H PRN IV PAIN LEVEL 7-10 Last administered on 02/28/17 17:09; Admin Dose 5 MG; Start 02/25/17 at 13:30 Ondansetron HCl (Zofran Inj) 4 mg Q4H PRN IV NAUSEA AND/OR VOMITING Last administered on 02/26/17 02:44; Admin Dose 4 MG; Start 02/25/17 at 13:30 Diphenhydramine HCl (Benadryl) 25 mg Q4H PRN PO ITCHING; Start 02/25/17 at 13: 30 Atorvastatin Calcium (Lipitor) 10 mg QHS PO Last administered on 02/28/17 20:56 ; Admin Dose 10 MG; Start 02/25/17 at 21:00 Bisacodyl (Dulcolax Supp) 10 mg DAILY PRN [place] CONSTIPATION; Start 02/25/17 at 20 :00 Docusate Sodium (Colace) 100 mg BID PO Last administered on 03/01/17 09:08; Admin Dose 100 MG; Start 02/25/17 at 21:00 Levothyroxine Sodium (Synthroid) 175 mcg DAILY@06 PO Last administered on 06:51; Admin Dose 175 MCG; Start 02/26/17 at 06:00 Lisinopril (Zestril) 20 mg DAILY PO Last administered on 03/01/17 09:12; Admin Dose 20 MG; Start 02/26/17 at 09:00 Magnesium Hydroxide (Milk Of Mag) 30 ml Q24H PRN PO CONSTIPATION; Start at 20:00 Polyethylene Glycol (Miralax) 17 gm DAILY PO Last administered on 03/01/17 09: 07; Admin Dose 17 GM; Start 02/26/17 at 09:00 Sotalol HCl (Betapace) 160 mg BID PO Last administered on 03/01/17 09:15; Admin Dose 160 MG; Start 02/25/17 at 21:00 Trazodone HCl (Desyrel) 300 mg QHS PO Last administered on 02/28/17 20:57; Admin Dose 300 MG; Start 02/25/17 at 21:00 Pantoprazole (Protonix Tab) 40 mg DAILY@06 PO Last administered on 03/01/17 06: 51; Admin Dose 40 MG; Start 02/26/17 at 06:00 Sodium Biphosphate/ Sodium Phosphate (Fleet Enema) 133 ml Q48H PRN [place] CONSTIPATION; Start 02/25/17 at 20:00 Clonidine (Catapres) 0.1 mg Q6H PRN PO ELEVATED BLOOD PRESSURE Last administered on 02/26/17 20:20; Admin Dose 0.1 MG; Start 02/25/17 at 20:00 Metoclopramide HCl (Reglan) 10 mg Q6H PRN IV NAUSEA Last administered on 06:01; Admin Dose 10 MG; Start 02/25/17 at 20:00 Carbamazepine (Tegretol Xr) 400 mg Q12 PO Last administered on 03/01/17 09:08; Admin Dose 400 MG; Start 02/25/17 at 21:00 Naloxone HCl (Narcan) 0.2 mg Q2M PRN IV RR 8 BREATHS/MIN OR LESS; Start at 08:30 Lorazepam (Ativan) 1 mg Q6H PRN PO ANXIETY; Start 02/26/17 at 09:00 Carisoprodol (Soma) 350 mg TID PRN PO MUSCLE SPASMS Last administered on t 17:02; Admin Dose 350 MG; Start 02/26/17 at 13:00 Morphine Sulfate (morphine) 4 mg Q4H PRN IM PAIN LEVEL 8-10; Start 02/28/17 at 08:00 CHUCK MCCRACKEN MD Mar 01, 2017 10:04
[2017-03-01] MEDS: CARISOPRODOL 350 MG TAB PO PRN (10:28)
[2017-03-01 15:11] VITALS: BP 144/75; RESP 20
[2017-03-01] MEDS: RIVAROXABAN 10 MG TABLET PO SCH (17:10)
[2017-03-01 17:18] VITALS: BP 145/83; PULSE 75; RESP 16
== END 2017-03-01 18:41 | DRG 493 ==
LOC: SDS 06:29 → EDSTATUS 12:00 → REC 13:27 → SDS 13:27 → MS1 19:15 → OBSVTOIN 02-26 21:27
PROVIDERS: ADMIT Orthopaedic Surgery; ATTEND Orthopaedic Surgery
PROC: 0QSG04Z Reposition Right Tibia with Internal Fixation Device, Open Approach (ICD-10-PCS; 2017-02-25)
PROC: 0SCF4ZZ Extirpation of Matter from Right Ankle Joint, Percutaneous Endoscopic Approach (ICD-10-PCS; 2017-02-25)
PROC: 0QSJ04Z Reposition Right Fibula with Internal Fixation Device, Open Approach (ICD-10-PCS; principal; 2017-02-25 12:00)
DX: S82.841A Displaced bimalleolar fracture of right lower leg, initial encounter for closed fracture (principal); E87.1 Hypo-osmolality and hyponatremia; I10 Essential (primary) hypertension; N39.0 Urinary tract infection, site not specified; M24.071 Loose body in right ankle; E78.5 Hyperlipidemia, unspecified; E03.9 Hypothyroidism, unspecified; F41.1 Generalized anxiety disorder; M81.0 Age-related osteoporosis without current pathological fracture; K21.9 Gastro-esophageal reflux disease without esophagitis; E66.9 Obesity, unspecified; Z68.36 Body mass index [BMI] 36.0-36.9, adult; Z79.82 Long term (current) use of aspirin; Z98.1 Arthrodesis status; Z85.828 Personal history of other malignant neoplasm of skin; W01.0XXA Fall on same level from slipping, tripping and stumbling without subsequent striking against object, initial encounter; Z95.0 Presence of cardiac pacemaker; Y92.009 Unspecified place in unspecified non-institutional (private) residence as the place of occurrence of the external cause
CPT/HCPCS: 80053; 81001; 82306; 82310; 82652; 85025; 87086; 97116; 97162; 97530; C1713; G0378; J0360; J0690; J1100; J1170; J2250; J2270; J2370; J2405; J2765; J2795; J3010; J7030; J7999

== ENCOUNTER 2017-04-04 09:46 | Inpatient (IN) | payer BC, MEDICARE ==
[~2017-04-04] VITALS: Ht 175.3 cm; Wt 104.5 kg
[~2017-04-04 09:46] MED LIST changes: +ACET-2047 PO; +BISA10SU75 PR; -CELE200C PO; +CYCL5TAB PO; +DOCU-159 PO; +MAGN400O4 PO; +NA P230E RC; +OXYC-279 PO; +POLY17PO6 PO; +RIVA10TA PO
[2017-04-04 10:28] VITALS: Ht 175.3 cm; Wt 104.5 kg
[2017-04-04] MEDS ORDERED: morphine 4 MG/ML VIAL IV STA (11:15)
[2017-04-04] MEDS ORDERED: ONDANSETRON 4 MG INJ IV STA (11:15)
[2017-04-04 11:32] LABS: BASOPHIL # 0.1 10^3/ul (0.0-0.1); BASOPHILS % 0.8 % (0.0-2.0); EOSINOPHILS # 0.1 10^3/ul (0.0-0.5); EOSINOPHILS % 0.8 % (0.0-7.0); HEMATOCRIT 38.2 % (37.0-47.0); HEMOGLOBIN 13.5 g/dl (12.0-16.0); LYMPHOCYTES # 1.1 10^3/ul (0.8-2.9); LYMPHOCYTES % 17.2 % (15.0-51.0); MEAN CORPUSCULAR HEMOGLOBIN 33.3 pg (29.0-33.0); MEAN CORPUSCULAR HGB CONC 35.3 g/dl (32.0-37.0); MEAN CORPUSCULAR VOLUME 94.3 fl (82.0-101.0); MEAN PLATELET VOLUME 9.3 fl (7.4-10.4); MONOCYTE # 0.8 10^3/ul (0.3-0.9); MONOCYTES % 12.8 % (0.0-11.0); NEUTROPHILS % 67.8 % (39.0-77.0); PLATELET COUNT 303 10^3/UL (140-415); RED BLOOD COUNT 4.05 10^6/ul (4.20-5.40); RED CELL DISTRIBUTION WIDTH 12.9 % (11.5-14.5); WHITE BLOOD COUNT 6.5 10^3/ul (4.8-10.8)
[2017-04-04 11:54] LABS: ADD UMIC NO; UR ASCORBIC ACID NEGATIVE (NEGATIVE); UR BILIRUBIN (Dip) NEGATIVE (NEGATIVE); UR BLOOD (Dip) NEGATIVE (NEGATIVE); UR CLARITY CLEAR (CLEAR); UR COLOR YELLOW (YELLOW); UR GLUCOSE (Dip) NEGATIVE (NEGATIVE); UR KETONES (Dip) NEGATIVE (NEGATIVE); UR LEUKOCYTE ESTERASE (Dip) NEGATIVE Leu/ul (NEGATIVE); UR NITRITE (Dip) NEGATIVE (NEGATIVE); UR TOTAL PROTEIN (Dip) NEGATIVE (NEGATIVE); UR UROBILINOGEN (Dip) NEGATIVE (NEGATIVE)
--- NOTE | 2017-04-04 12:01 | RADRPT ---
PROCEDURE: CT abdomen and pelvis without IV contrast. CLINICAL INDICATION: Abdomen pain/diarrhea. TECHNIQUE: CT scan of the abdomen and pelvis was performed on a [address] scanner. The patient is scanned without IV contrast. Coronal and sagittal reformatted images were obtained from the axia l source images. Images were reviewed on a high-resolution PACS workstation. Total radiation dose: Total CTDIvol: 22.9 mGy. Total DLP: 1339 mGy-cm. One or more of the following dose reduction techniques were used: automated exposure control, adjustment of the mA and/or kV acc ording to patient size, or use of iterative reconstruction technique. COMPARISON: None available. FINDINGS: CT abdomen: The lung bases are clear. The heart is not enlarged without pericardial thickening or effusion. The liver is normal in size and density without focal hepatic mass or biliary dilatation. The splee n is normal in size. The stomach is partially collapsed but is grossly unremarkable. The pancreas as visualized is normal. The gallbladder is normal and there is no evidence of biliary dilatation. The adrenal glands are symmetrical and normal. The kidneys are symmetrically normal bilaterally. N o renal obstructive uropathy or mass lesion is seen.. The aorta is normal in caliber. There is no retroperitoneal lymphadenopathy. The zander hepatis reg ion is clear. The bowel and mesentery, as visualized, are equally unremarkable. CT pelvis: The appendix is normal in the right lower quadrant. The small bowel loops situated within the pelvi s are unremarkable. There is status post hysterectomy. No adnexal mass seen. The pelvic sidewalls and inguinal regions are clear. No mass, lymphadenopathy is seen. No acute inflammation seen. The urinary bladder is normal with Nelson catheter in place. The surrounding osseous structures are unremarkable. No osteolytic or osteoblastic lesion is detect ed. IMPRESSION: 1. Unremarkable CT abdomen pelvis without IV contrast. 2. No evidence of colitis. 3. Status post hysterectomy. RPTAT: GG .Jay Zavala MD, Date Time Electronically viewed and signed by .Jay Zavala MD, on 04/04/2017 12:01 .Y/
[2017-04-04 12:05] LABS: ALANINE AMINOTRANSFERASE 39 IU/L (13-69); ALBUMIN 3.5 g/dl (3.3-4.9); ALBUMIN/GLOBULIN RATIO 1.16; ALKALINE PHOSPHATASE 109 IU/L (42-121); ANION GAP 12 (8-16); ASPARTATE AMINO TRANSFERASE 23 IU/L (15-46); BILIRUBIN,INDIRECT 0.4 mg/dl (0-1.1); BILIRUBIN,TOTAL 0.4 mg/dl (0.2-1.3); BLOOD UREA NITROGEN 10 mg/dl (7-20); CALCIUM 9.1 mg/dl (8.4-10.2); CARBON DIOXIDE 26 mmol/L (21-31); CHLORIDE 93 mmol/L (97-110); CREATININE 0.69 mg/dl (0.44-1.00); GLUCOSE 121 mg/dl (70-220); SODIUM 127 mmol/L (135-144); TOTAL PROTEIN 6.5 g/dl (6.1-8.1)
[2017-04-04 12:20] LABS: TROPONIN-I < 0.012 ng/ml (0.00-0.12)
[2017-04-04] MEDS ORDERED: CARBAMAZEPINE 200 MG TAB PO ONE ×2 (13:00)
[2017-04-04] MEDS ORDERED: SOTALOL 80 MG TAB PO ONE (13:00)
[2017-04-04] MEDS ORDERED: SOD CHLORIDE 0.9% 1,000 ML IV ONE (13:00)
--- NOTE | 2017-04-04 13:36 | ERA ---
ER Documentation Chief Complaint Date/Time DATE: 04/04/17 TIME: 13:30 Chief Complaint biba from home for general weakness x 3 days HPI 66-year-old woman brought in by EMS for weakness, dehydration, diarrhea. She is on multiple episodes of loose stools for the last 2-3 days. She denies blood per rectum or mucus, no fevers or chills, no chest pain or shortness of breath. Patient states a few weeks ago she was using antibiotics daily and stopped a few days ago. ROS All systems reviewed and are negative except as per history of present illness. Medications Home Meds Reported Medications Cyclobenzaprine Hcl* (Cyclobenzaprine Hcl*) 5 Mg Tablet, 5 MG PO Q8H Y for MUSCLE SPASMS, #60 TAB 02/25/17 Na Phos,M-B/Na Phos,Di-Ba (Fleet Enema Extra) 230 Ml Enema, 230 ML RC Q48H Y for CONSTIPATION, ENEMA 02/25/17 Bisacodyl* (Bisacodyl*) 10 Mg Supp, 10 MG AL DAILY Y for CONSTIPATION, SUPP 02/25/17 Docusate Sodium* (Docusate Sodium*) 100 Mg Capsule, 100 MG PO BID, #60 CAP 02/25/17 Atorvastatin Calcium (Atorvastatin Calcium) 10 Mg Tablet, 10 MG PO QHS, #30 TAB 02/25/17 Magnesium Hydroxide* (Milk Of Magnesia*) 400 Mg/5 Ml Oral.susp, 30 ML PO Q24H Y for CONSTIPATION, ML 02/25/17 Polyethylene Glycol* (Miralax*) 17 Gm Powd.pack, 17 GM PO DAILY, #30 PACKET 02/25/17 Oxycodone HCl/Acetaminophen (Percocet 5-325 mg Tablet) 1 Each Tablet, 1 TAB PO Q4H WHILE AWAKE, TAB 02/25/17 Lisinopril* (Lisinopril*) 20 Mg Tablet, 20 MG PO DAILY Y for ELEVATED BLOOD PRESSURE, #30 TAB IF BP IS OVER 140 02/12/17 Levothyroxine Sodium* (Synthroid*) 175 Mcg Tablet, 175 MCG PO BEFORE BREAKFAST, #30 TAB PT WANTS SYNTHROID 02/12/17 Esomeprazole Mag Trihydrate (Nexium) 20 Mg Capsule.dr, 20 MG PO DAILY, #30 CAP 02/12/17 Carbamazepine* (Carbamazepine* XR) 400 Mg Tab.er.12h, 400 MG PO Q12, #60 TAB.SA 02/12/17 Discontinued Reported Medications Acetaminophen* (Acetaminophen*) 650 Mg Tablet, 650 MG PO Q4H Y for PAIN AND OR ELEVATED TEMP, #30 TAB 02/25/17 Rivaroxaban* (Xarelto*) 10 Mg Tablet, 10 MG PO DAILY, TAB 02/25/17 Trazodone Hcl* (Trazodone Hcl*) 300 Mg Tablet, 300 MG PO QHS, #30 TAB 02/12/17 Sotalol Hcl* (Sotalol Hcl*) 160 Mg Tablet, 160 MG PO BID, TAB 11AM AND 11PM 02/12/17 Atorvastatin Calcium (Atorvastatin Calcium) 10 Mg Tablet, 10 MG PO QHS, #30 TAB 02/12/17 Allergies Allergies: Coded Allergies: heparin (Verified Allergy, Intermediate, hives, 04/04/17) latex (Verified Allergy, Mild, 04/04/17) silver (Unverified Allergy, Unknown, 04/04/17) Uncoded Allergies: TEGADERM (Allergy, Mild, BURNING/ ITCHING, 02/14/17) PMhx/Soc Obesity, hypertension, hypothyroidism History of Surgery: Yes (MULTIPLE ORTHOPEDIC SURGERIES ON BOTH LOWER EXT , bladder prolapse ) Anesthesia Reaction: No Hx Neurological Disorder: No Hx Respiratory Disorders: No Hx Cardiac Disorders: Yes (HTN , CARDIAC PACEMAKER, HYPERLIPIDEMIA , A FIB ) Hx Psychiatric Problems: No Hx Miscellaneous Medical Probl: Yes (See EMR for more detail. depression ) Hx Alcohol Use: No Hx Substance Use: No Hx Tobacco Use: No Smoking Status: Never smoker FmHx Family History: No diabetes Physical Exam Vitals Vital Signs Date Time Temp Pulse Resp B/P Pulse Ox O2 Delivery O2 Flow Rate FiO2 04/04/17 12:42 81 14 163/96 96 Room Air 04/04/17 10:28 98.6 79 13 181/98 94 Physical Exam GENERAL: Well-developed, well-nourished, appears dehydrated, afebrile HEENT: Dry mucous membranes, pink conjunctiva, no cervical spine tenderness or step-off deformities, no goiter, no jaundice or icterus, extraocular movements intact without pain. No submandibular induration, and no pharyngeal erythema NEURO: Alert and oriented 3, cranial nerves II through XII intact bilaterally, pupils equal round reactive to light, no focal deficits or facial asymmetry, sensation intact distally Strength 5/5 in upper and lower extremities bilaterally CARDIAC: Regular rate and rhythm, no murmurs rubs or gallops LUNGS: Clear bilaterally no wheezing crackles or stridor ABDOMEN: Soft nontender, no guarding, no rigidity, no rebound, no psoas sign no obturator sign. Normoactive bowel sounds SKIN: Warm and dry to touch, no abrasions, contusions, or hematomas, no lacerations, no ecchymosis, no target lesions, and without ulcers EXTREMITIES: No clubbing cyanosis or edema, calves are bilaterally symmetrical, no Homans sign, no popliteal cord sign. Distal pulses equal and bilateral PSYCH: Normal affect without agitation or irritability Result Diagram: 04/04/17 1100 04/04/17 1100 Results 24 hrs Laboratory Tests Test 04/04/17 09:07 04/04/17 11:00 Urine Color YELLOW Urine Clarity CLEAR Urine pH 6.0 Urine Specific [place] 1.010 Urine Ketones NEGATIVEmg/dL Urine Nitrite NEGATIVEmg/dL Urine Bilirubin NEGATIVEmg/dL Urine Urobilinogen NEGATIVEmg/dL Urine Leukocyte Esterase NEGATIVELeu/ul Urine Hemoglobin NEGATIVEmg/dL Urine Glucose NEGATIVEmg/dL Urine Total Protein NEGATIVEmg/dl White Blood Count 6.510^3/ul Red Blood Count 4.0510^6/ul Hemoglobin 13.5g/dl Hematocrit 38.2% Mean Corpuscular Volume 94.3fl Mean Corpuscular Hemoglobin 33.3pg Mean Corpuscular Hemoglobin Concent 35.3g/dl Red Cell Distribution Width 12.9% Platelet Count 21296^3/UL Mean Platelet Volume 9.3fl Neutrophils % 67.8% Lymphocytes % 17.2% Monocytes % 12.8% Eosinophils % 0.8% Basophils % 0.8% Nucleated Red Blood Cells % 0.0/100WBC Neutrophils # (Manual) 4.410^3/ul Lymphocytes # 1.110^3/ul Monocytes # 0.810^3/ul Eosinophils # 0.110^3/ul Basophils # 0.110^3/ul Nucleated Red Blood Cells # 0.010^3/ul Sodium Level 127mmol/L Potassium Level 4.0mmol/L Chloride Level 93mmol/L Carbon Dioxide Level 26mmol/L Anion Gap 12 Blood Urea Nitrogen 10mg/dl Creatinine 0.69mg/dl Glucose Level 121mg/dl Calcium Level 9.1mg/dl Total Bilirubin 0.4mg/dl Direct Bilirubin 0.00mg/dl Indirect Bilirubin 0.4mg/dl Aspartate Amino Transf (AST/SGOT) 23IU/L Alanine Aminotransferase (ALT/SGPT) 39IU/L Alkaline Phosphatase 109IU/L Troponin I < 0.012ng/ml Total Protein 6.5g/dl Albumin 3.5g/dl Globulin 3.00g/dl Albumin/Globulin Ratio 1.16 Lipase 339U/L Current Medications Medications (Trade) Dose Ordered Sig/Kurtis Route PRN Reason Start Time Stop Time Status Last Admin Dose Admin Morphine Sulfate (morphine) 4 mg ONCE STAT IV 04/04/17 11:15 04/04/17 11:18 DC Ondansetron HCl (Zofran Inj) 4 mg ONCE STAT IV 04/04/17 11:15 04/04/17 11:18 DC Carbamazepine (Tegretol) 200 mg ONCE ONCE PO 04/04/17 13:00 04/04/17 13:01 DC 04/04/17 13:07 Carbamazepine (Tegretol) 200 mg ONCE ONCE PO 04/04/17 13:00 04/04/17 13:01 DC 04/04/17 13:08 Sotalol HCl 160 mg 160 mg ONCE ONCE PO 04/04/17 13:00 04/04/17 13:01 DC 04/04/17 13:07 Sodium Chloride (NS) 1,000 ml @ 1,000 mls/hr Q1H ONCE IV 04/04/17 13:00 04/04/17 13:59 04/04/17 13:03 Procedures/MDM IV line was established patient was placed on monitor technician rhythm strip revealed a sinus rhythm at about 90 bpm with upright P and T waves. Patient was afebrile. I administered 1 L normal saline intravenously for dehydration, and also administered sotalol and carbamazepine. EKG performed, read by me: 89 bpm, normal sinus rhythm, normal axis, no acute ST segment changes, narrow QRS complex, with good R-wave progression in precordial leads. CT scan of the abdomen and pelvis performed was unremarkable, no acute inflammatory infectious pathology noted. CBC was normal, electrolytes reveal hyponatremia at 127, liver function tests normal, troponin negative. PMD Dr. Emily Foy will admit the patient for continued medical management and IV rehydration Departure Diagnosis: Primary Impression: Acute weakness Additional Impressions: Dehydration Hyponatremia Diarrhea Qualified Code: R19.7 - Diarrhea, unspecified type Condition: JODY Carnes MD Apr 04, 2017 13:36
[2017-04-04 14:43] VITALS: BP 175/83; RESP 20
[2017-04-04] MEDS ORDERED: MAGNESIUM HYDROXIDE 30ML CUP PO PRN (15:30)
[2017-04-04] MEDS ORDERED: ACETAMINOPHEN 325 MG TAB PO PRN (15:30)
[2017-04-04] MEDS ORDERED: NACL 0.9% 3 ML SYG IV SCH ×2 (15:30)
[2017-04-04] MEDS: SOD CHLORIDE 0.9% 1,000 ML IV SCH (16:35)
[2017-04-04] MEDS ORDERED: OXYCODONE/ACETAMINOPHEN (5/325) TAB PO SCH (17:00)
--- NOTE | 2017-04-04 20:12 | HP ---
DATE OF ADMISSION: 04/04/2017 REASON FOR ADMISSION: Nausea, vomiting, diarrhea and generalized weakness. HISTORY OF PRESENT ILLNESS: This 66-year-old female has been ill for the last 2-3 days. The patient initially was admitted to this hospital on February 26, 2017. The patient was in her usual state of health until 02/12/2017, when she slipped in her home, fell and injured her right leg. The patient was taken to [facility] and was diagnosed with a distal fracture of the right fibula and medial malleolus. The patient has a history of right ankle fracture involving the right tibia and previously underwent an ORIF. The patient initially was admitted to the hospital by Dr. Jay Pepe, her Orthopedic surgeon, who placed the right ankle in a splint. I followed the patient for medicine. The patient was eventually transferred to [facility] in [place]. The patient was then transferred back to this hospital on 02/25/2017 and underwent an extensive right ankle surgery by Dr. Pepe to repair her ankle fracture. The patient then recovered and was transferred back to [facility] and was discharged last 03/29/2017 to her home. The patient seemed to do well at home until 2-3 days ago, when she developed some constipation, and then this was followed by diarrhea, nausea, with vomiting and generalized weakness. The patient was brought into the emergency room today and admitted. The patient denies any fever or chills. The patient has a large cast on her right ankle from her surgery. The patient is mobile, but with great difficulty ambulating. The patient has recently had a problem with hyponatremia, thought to be due to chronic and/or recurrent SIADH. She was on demeclocycline for this problem. The patient's serum sodium was as low as 122. PAST MEDICAL HISTORY: Is remarkable for: 1. Atrial fibrillation, now in sinus rhythm. 2. Cardiac pacemaker. 3. Hypertension. 4. Hyperlipidemia. 5. Hypothyroidism, on replacement therapy. 6. Generalized anxiety disorder. 7. History of incontinence. 8. Osteoporosis. 9. Hyperparathyroidism. 10. Multiple orthopedic surgeries in the past on both lower extremities. 11. Gastroesophageal reflux disease. 12. Urinary bladder surgery x5. 13. Skin cancer over left eye. 14. Nasal surgery. 15. Spinal injury, with repair. 16. Tonsillectomy. 17. Right ankle fracture, with ORIF. 18. Left ankle surgery. 19. Bilateral knee caps removed. FAMILY HISTORY: Unremarkable. SOCIAL HISTORY: The patient drinks alcohol occasionally. She has never smoked. She does not use illicit drugs. CURRENT MEDICATION: Includes the followin. Cyclobenzaprine 5 mg every 8 hours for muscle spasms. 2. Atorvastatin 10 mg a day. 3. Lisinopril 20 mg a day. 4. Carbamazepine XR 400 mg twice a day. 5. Percocet p.r.n. pain. 6. Dulcolax suppositories. 7. Docusate sodium 100 mg twice a day. 8. Nexium 20 mg a day. 9. Milk of magnesia p.r.n. 10. Fleets enema p.r.n. 11. MiraLax p.r.n. 12. Levothyroxine 175 mcg a day. PHYSICAL EXAMINATION: GENERAL APPEARANCE: At this time reveals a well-developed female, in no apparent distress. VITAL SIGNS: Temperature 98.4, pulse of 77, respirations 20, blood pressure 175/83, O2 sat 100 percent on room air. HEENT: Head normocephalic. Eyes, extraocular muscles intact. Nose and mouth are normal. NECK: Supple. No neck vein distention. LUNGS: Clear to auscultation. HEART: Regular rhythm. No murmurs, gallops, or rubs. ABDOMEN: Soft, nontender. No masses or megaly. EXTREMITIES: The right ankle and lower leg are in a large cast and elevated. The left leg is without edema or discoloration. IMPRESSION: 1. Acute gastroenteritis, with nausea, vomiting, diarrhea, transient abdominal pain. 2. Dehydration. 3. Hyponatremia. 4. History of atrial fibrillation. 5. Cardiac pacemaker. 6. Right ankle fracture on February 12, 2017. 7. Generalized anxiety disorder. PLAN: 1. Intravenous fluids with normal saline. 2. Check labs in the morning. 3. Resume some routine medications. Dictated By: Kenji Becker MD /anamika/karl /Document#: [id number]
[2017-04-04] MEDS: ATORVASTATIN 10 MG TAB PO SCH (20:14)
[2017-04-04] MEDS: carBAMAZepine (XR) 100 MG TABSR PO SCH (20:15)
[2017-04-04] MEDS: LISINOPRIL 20 MG TAB PO PRN (20:15)
[2017-04-04 20:21] VITALS: BP 170/84; RESP 18
[2017-04-04] MEDS: traMADol 50 MG TAB PO PRN (20:39)
[2017-04-04 23:00] VITALS: BP 140/67; PULSE 83
[2017-04-04] MEDS ORDERED: ZOLPIDEM 5 MG TAB PO PRN (23:00)
[2017-04-05] MEDS: SOD CHLORIDE 0.9% 1,000 ML IV SCH ×3 (01:30→12:27)
[2017-04-05 02:00] VITALS: BP 143/79; RESP 18
[2017-04-05] MEDS: CYCLOBENZAPRINE 10 MG TAB PO PRN ×2 (02:21→19:24)
[2017-04-05] MEDS: traMADol 50 MG TAB PO PRN ×2 (04:52→14:24)
[2017-04-05 06:32] LABS: BASOPHIL # 0.1 10^3/ul (0.0-0.1); BASOPHILS % 1.1 % (0.0-2.0); EOSINOPHILS # 0.1 10^3/ul (0.0-0.5); EOSINOPHILS % 2.1 % (0.0-7.0); HEMATOCRIT 36.4 % (37.0-47.0); LYMPHOCYTES # 1.6 10^3/ul (0.8-2.9); LYMPHOCYTES % 29.3 % (15.0-51.0); MEAN CORPUSCULAR HEMOGLOBIN 31.4 pg (29.0-33.0); MEAN CORPUSCULAR VOLUME 95.3 fl (82.0-101.0); MEAN PLATELET VOLUME 9.5 fl (7.4-10.4); MONOCYTE # 0.8 10^3/ul (0.3-0.9); MONOCYTES % 14.1 % (0.0-11.0); PLATELET COUNT 277 10^3/UL (140-415); RED BLOOD COUNT 3.82 10^6/ul (4.20-5.40); RED CELL DISTRIBUTION WIDTH 13.4 % (11.5-14.5); WHITE BLOOD COUNT 5.3 10^3/ul (4.8-10.8)
[2017-04-05] MEDS: LEVOTHYROXINE 175 MCG TAB PO SCH (07:15)
[2017-04-05] MEDS: PANTOPRAZOLE (EC) 40 MG TAB PO SCH (07:15)
[2017-04-05 07:28] LABS: ALBUMIN 2.9 g/dl (3.3-4.9); ALBUMIN/GLOBULIN RATIO 1.11; BILIRUBIN,INDIRECT 0.3 mg/dl (0-1.1); BILIRUBIN,TOTAL 0.3 mg/dl (0.2-1.3); CALCIUM 8.7 mg/dl (8.4-10.2); CREATININE 0.65 mg/dl (0.44-1.00); MAGNESIUM 1.6 mg/dl (1.7-2.5); PHOSPHORUS 3.6 mg/dl (2.5-4.9); TOTAL PROTEIN 5.5 g/dl (6.1-8.1)
[2017-04-05 07:45] VITALS: BP 166/88; RESP 18
[2017-04-05 08:20] LABS: THYROID STIMULATING HORMONE 3.54 MIU/L (0.465-4.680)
[2017-04-05] MEDS: carBAMAZepine (XR) 100 MG TABSR PO SCH ×2 (08:50→20:42)
[2017-04-05] MEDS ORDERED: MAGNESIUM SULFATE 2 GM/50 ML 50 ML IVPB ONE (09:00)
--- NOTE | 2017-04-05 09:25 | PN ---
Date/Time of Note Date/Time of Note DATE: 04/05/17 TIME: 09:18 Assessment/Plan VTE Prophylaxis VTE Prophylaxis Intervention: ambulation, other Lines/Catheters IV [facility]from [facility] [place] [facility] Urinary Cath still in place: Yes Reason Cath still needed: urinary retention Assessment/Plan Chief Complaint/Hosp Course 1. nausea , vomiting and diarrhea are resolving 2. hyponatremia is correcting 3. A fib 4. cardiac pacemaker 5. R ankle fracture Continue IV fluids . Replace magnesium . Labs in am . Problems: Subjective 24 Hr Interval Summary Free Text/Dictation She is feeling better today . She had one episode of diarrhea last night . c/o headache . Cardiovascular: no complaints Gastrointestinal: diarrhea Genitourinary: no complaints Musculoskeletal: no complaints Neurologic: no complaints Exam/Review of Systems Vital Signs Vitals Vital Signs Date Time Temp Pulse Resp B/P Pulse Ox O2 Delivery O2 Flow Rate FiO2 04/05/17 07:45 98.7 84 18 166/88 97 04/04/17 23:00 Room Air Intake and Output 04/04/17 04/04/17 04/05/17 15:00 23:00 07:00 Intake Total 1000 ml 300 ml 1020 ml Output Total 1820 ml Balance 1000 ml 300 ml -800 ml Exam Constitutional: alert, obese, oriented ENMT: nl external ears & nose, nl lips & teeth, nl nasal mucosa & septum Respiratory: clear to auscultation, normal air movement Cardiovascular: regular rate and rhythm Gastrointestinal: non-tender, soft Musculoskeletal: nl extremities to inspection Results Result Diagram: 04/05/17 0529 04/05/17 0529 Results 24 hrs Laboratory Tests Test 04/04/17 11:00 04/05/17 05:29 White Blood Count 6.5 5.3 Red Blood Count 4.05 #L 3.82 L Hemoglobin 13.5 # 12.0 Hematocrit 38.2 # 36.4 L Mean Corpuscular Volume 94.3 95.3 Mean Corpuscular Hemoglobin 33.3 H 31.4 Mean Corpuscular Hemoglobin Concent 35.3 33.0 Red Cell Distribution Width 12.9 13.4 Platelet Count 303 277 Mean Platelet Volume 9.3 9.5 Neutrophils % 67.8 53.0 Lymphocytes % 17.2 29.3 Monocytes % 12.8 H 14.1 H Eosinophils % 0.8 2.1 Basophils % 0.8 1.1 Nucleated Red Blood Cells % 0.0 0.0 Neutrophils # (Manual) 4.4 2.8 Lymphocytes # 1.1 1.6 Monocytes # 0.8 0.8 Eosinophils # 0.1 0.1 Basophils # 0.1 0.1 Nucleated Red Blood Cells # 0.0 0.0 Sodium Level 127 L 130 L Potassium Level 4.0 4.0 Chloride Level 93 L 100 Carbon Dioxide Level 26 24 Anion Gap 12 10 Blood Urea Nitrogen 10 6 L Creatinine 0.69 0.65 Glucose Level 121 114 Calcium Level 9.1 8.7 Total Bilirubin 0.4 0.3 Direct Bilirubin 0.00 0.00 Indirect Bilirubin 0.4 0.3 Aspartate Amino Transf (AST/SGOT) 23 19 Alanine Aminotransferase (ALT/SGPT) 39 31 Alkaline Phosphatase 109 82 Troponin I < 0.012 Total Protein 6.5 5.5 #L Albumin 3.5 2.9 L Globulin 3.00 2.60 Albumin/Globulin Ratio 1.16 1.11 Lipase 339 H 388 H Phosphorus Level 3.6 Magnesium Level 1.6 L Amylase Level 50 Thyroid Stimulating Hormone (TSH) 3.540 Medications Medications Current Medications Ondansetron HCl (Zofran Inj) 4 mg Q6H PRN IV NAUSEA AND/OR VOMITING; Start 04/04 at 15:30 Acetaminophen (Tylenol Tab) 650 mg Q6H PRN PO PAIN LEVEL 1-3 OR FEVER; Start at 15:30 Atorvastatin Calcium (Lipitor) 10 mg QHS PO Last administered on 04/04/17 20:14 ; Admin Dose 10 MG; Start 04/04/17 at 21:00 Carbamazepine (Tegretol Xr) 400 mg Q12 PO Last administered on 04/05/17 08:50; Admin Dose 400 MG; Start 04/04/17 at 21:00 Cyclobenzaprine HCl (Flexeril) 5 mg Q8H PRN PO MUSCLE SPASMS Last administered on 04/05/17 02:21; Admin Dose 5 MG; Start 04/04/17 at 15:30 Lisinopril (Zestril) 20 mg DAILY PRN PO ELEVATED BLOOD PRESSURE Last administered on 04/04/17 20:15; Admin Dose 20 MG; Start 04/04/17 at 15:30 Magnesium Hydroxide (Milk Of Mag) 30 ml Q24H PRN PO CONSTIPATION; Start at 15:30 Pantoprazole 40 mg 40 mg DAILY@06 PO Last administered on 04/05/17 07:15; Admin Dose 40 MG; Start 04/05/17 at 06:00 Sodium Chloride (NS) 1,000 ml @ 75 mls/hr [id number] IV Last administered on 02:21; Admin Dose 100 MLS/HR; Start 04/04/17 at 15:30 Tramadol HCl (Ultram) 50 mg Q6H PRN PO PAIN Last administered on 04/05/17 04:52 ; Admin Dose 50 MG; Start 04/04/17 at 17:00 Oxycodone/ Acetaminophen (Percocet (5/ 325)) 1 tab Q4H PRN PO SEVERE PAIN LEVEL 7-10; Start 04/04/17 at 17:00 Zolpidem Tartrate 5 mg 5 mg HS PRN PO INSOMNIA; Start 04/04/17 at 23:00 Magnesium Sulfate (Magnesium Sulfate 2 Gm/50 ml) 50 ml @ 25 mls/hr ONCE ONCE IVPB ; Start 04/05/17 at 09:00; Stop 04/05/17 at 10:59 Sotalol HCl (Betapace) 160 mg BID PO ; Start 04/05/17 at 09:30; Status UNV Guaifenesin (Mucinex) 600 mg BID PO ; Start 04/05/17 at 09:30; Status UNCHUCK PEREZ MD Apr 05, 2017 09:25
[2017-04-05] MEDS: GUAIFENESIN LA 600 MG TABSR PO SCH ×2 (12:26→20:42)
[2017-04-05] MEDS: SOTALOL 80 MG TAB PO SCH ×2 (12:26→20:42)
[2017-04-05 13:54] VITALS: BP 158/93; RESP 18
[2017-04-05] MEDS: LISINOPRIL 20 MG TAB PO PRN (14:15)
[2017-04-05] MEDS: RIVAROXABAN 10 MG TABLET PO SCH (17:48)
[2017-04-05] MEDS: OXYCODONE/ACETAMINOPHEN (5/325) TAB PO PRN (20:24)
[2017-04-05] MEDS: ATORVASTATIN 10 MG TAB PO SCH (20:42)
[2017-04-05 21:37] VITALS: BP 176/89; RESP 18
[2017-04-05 22:00] VITALS: BP 168/88; PULSE 77
[2017-04-06 00:26] VITALS: BP 152/76; PULSE 80
[2017-04-06 01:56] VITALS: BP 156/70; RESP 18
[2017-04-06] MEDS: SOD CHLORIDE 0.9% 1,000 ML IV SCH ×2 (02:14→15:40)
[2017-04-06] MEDS: PANTOPRAZOLE (EC) 40 MG TAB PO SCH (06:09)
[2017-04-06 06:56] LABS: ALBUMIN 2.9 g/dl (3.3-4.9); ALBUMIN/GLOBULIN RATIO 1.16; BILIRUBIN,INDIRECT 0.2 mg/dl (0-1.1); BILIRUBIN,TOTAL 0.2 mg/dl (0.2-1.3); CALCIUM 8.8 mg/dl (8.4-10.2); CREATININE 0.62 mg/dl (0.44-1.00); MAGNESIUM 1.9 mg/dl (1.7-2.5); TOTAL PROTEIN 5.4 g/dl (6.1-8.1)
[2017-04-06 07:45] VITALS: BP 164/98; RESP 18
[2017-04-06] MEDS: GUAIFENESIN LA 600 MG TABSR PO SCH ×2 (08:21→20:11)
[2017-04-06] MEDS: LEVOTHYROXINE 150 MCG TAB PO SCH (08:21)
[2017-04-06] MEDS: LEVOTHYROXINE 25 MCG TAB PO SCH (08:21)
[2017-04-06] MEDS: SOTALOL 80 MG TAB PO SCH ×2 (08:22→20:11)
[2017-04-06] MEDS: carBAMAZepine (XR) 100 MG TABSR PO SCH ×2 (08:22→20:12)
[2017-04-06] MEDS: LISINOPRIL 20 MG TAB PO PRN (08:29)
[2017-04-06] MEDS: CYCLOBENZAPRINE 10 MG TAB PO PRN (10:01)
[2017-04-06] MEDS: traMADol 50 MG TAB PO PRN (12:27)
[2017-04-06 14:39] VITALS: BP 138/85; RESP 18
[2017-04-06] MEDS: OXYCODONE/ACETAMINOPHEN (5/325) TAB PO PRN ×2 (16:39→23:29)
--- NOTE | 2017-04-06 16:42 | PN ---
Date/Time of Note Date/Time of Note DATE: 04/06/17 TIME: 16:41 Assessment/Plan VTE Prophylaxis VTE Prophylaxis Intervention: heparin Lines/Catheters IV Catheter Type (from Nrsg): Peripheral IV Assessment/Plan Assessment/Plan 1. nausea , vomiting and diarrhea are resolving 2. hyponatremia is correcting, check labs in am, libralized salt diet 3. A fib 4. cardiac pacemaker 5. R ankle fracture, started robaxin 6. constipation, colace & miralax Continue IV fluids . Replace magnesium . Labs in am . Subjective 24 Hr Interval Summary Constitutional: no complaints Eyes: no complaints Respiratory: No pain Cardiovascular: no complaints, No chest pain Gastrointestinal: no complaints Genitourinary: no complaints Skin: No bruising Neurologic: no complaints Psychological: anxiety Exam/Review of Systems Vital Signs Vitals Vital Signs Date Time Temp Pulse Resp B/P Pulse Ox O2 Delivery O2 Flow Rate FiO2 04/06/17 14:39 98.0 77 18 138/85 100 04/06/17 00:26 Room Air Intake and Output 04/05/17 04/05/17 04/06/17 15:00 23:00 07:00 Intake Total 1050 ml 1480 ml 1240 ml Output Total 1900 ml Balance 1050 ml -420 ml 1240 ml Exam Constitutional: alert, oriented, well developed Head: normocephalic ENMT: nl external ears & nose, nl lips & teeth Respiratory: clear to auscultation, normal air movement Cardiovascular: nl pulses, regular rate and rhythm Gastrointestinal: nl liver, spleen, non-tender, soft Genitourinary - Female: nl adnexae Neurological: CAREER AGENT II-XII intact Results Result Diagram: 04/05/17 0529 04/06/17 0539 Results 24 hrs Laboratory Tests Test 04/06/17 05:39 Sodium Level 126 L Potassium Level 4.0 Chloride Level 100 Carbon Dioxide Level 25 Anion Gap 5 L Blood Urea Nitrogen 5 L Creatinine 0.62 Glucose Level 103 Calcium Level 8.8 Magnesium Level 1.9 Total Bilirubin 0.2 Direct Bilirubin 0.00 Indirect Bilirubin 0.2 Aspartate Amino Transf (AST/SGOT) 19 Alanine Aminotransferase (ALT/SGPT) 31 Alkaline Phosphatase 85 Total Protein 5.4 L Albumin 2.9 L Globulin 2.50 Albumin/Globulin Ratio 1.16 Medications Medications Current Medications Ondansetron HCl (Zofran Inj) 4 mg Q6H PRN IV NAUSEA AND/OR VOMITING; Start 04/04 at 15:30 Acetaminophen (Tylenol Tab) 650 mg Q6H PRN PO PAIN LEVEL 1-3 OR FEVER; Start at 15:30 Atorvastatin Calcium (Lipitor) 10 mg QHS PO Last administered on 04/05/17 20:42 ; Admin Dose 10 MG; Start 04/04/17 at 21:00 Carbamazepine (Tegretol Xr) 400 mg Q12 PO Last administered on 04/06/17 08:22; Admin Dose 400 MG; Start 04/04/17 at 21:00 Cyclobenzaprine HCl (Flexeril) 5 mg Q8H PRN PO MUSCLE SPASMS Last administered on 04/06/17 10:01; Admin Dose 5 MG; Start 04/04/17 at 15:30 Lisinopril (Zestril) 20 mg DAILY PRN PO ELEVATED BLOOD PRESSURE Last administered on 04/06/17 08:29; Admin Dose 20 MG; Start 04/04/17 at 15:30 Magnesium Hydroxide (Milk Of Mag) 30 ml Q24H PRN PO CONSTIPATION; Start at 15:30 Pantoprazole 40 mg 40 mg DAILY@06 PO Last administered on 04/06/17 06:09; Admin Dose 40 MG; Start 04/05/17 at 06:00 Sodium Chloride (NS) 1,000 ml @ 75 mls/hr [id number] IV Last administered on 15:40; Admin Dose 75 MLS/HR; Start 04/04/17 at 15:30 Tramadol HCl (Ultram) 50 mg Q6H PRN PO PAIN Last administered on 04/06/17 12:27 ; Admin Dose 50 MG; Start 04/04/17 at 17:00 Oxycodone/ Acetaminophen (Percocet (5/ 325)) 1 tab Q4H PRN PO SEVERE PAIN LEVEL 7-10 Last administered on 04/05/17 20:24; Admin Dose 1 TAB; Start 04/04/17 at 17:00 Zolpidem Tartrate (Ambien) 5 mg HS PRN PO INSOMNIA; Start 04/04/17 at 23:00 Sotalol HCl (Betapace) 160 mg BID PO Last administered on 04/06/17 08:22; Admin Dose 160 MG; Start 04/05/17 at 09:30 Guaifenesin (Mucinex) 600 mg BID PO Last administered on 04/06/17 08:21; Admin Dose 600 MG; Start 04/05/17 at 09:30 Levothyroxine Sodium (Synthroid) 150 mcg DAILY@06 PO Last administered on 08:21; Admin Dose 150 MCG; Start 04/06/17 at 08:00; Stop 04/08/17 at 23:00 Levothyroxine Sodium (Synthroid) 25 mcg DAILY@06 PO Last administered on 08:21; Admin Dose 25 MCG; Start 04/06/17 at 08:00; Stop 04/08/17 at 23:00 CAYDEN PRICE MD Apr 06, 2017 16:42
[2017-04-06] MEDS: RIVAROXABAN 10 MG TABLET PO SCH (18:13)
[2017-04-06 20:00] VITALS: BP 177/105; PULSE 82; RESP 18
[2017-04-06] MEDS: POLYETHYLENE GLYCOL 17 GM PACKET GTB SCH (20:10)
[2017-04-06] MEDS: ATORVASTATIN 10 MG TAB PO SCH (20:11)
[2017-04-06] MEDS: DOCUSATE SODIUM 250 MG CAP PO SCH (20:11)
[2017-04-06] MEDS: SODIUM CHLORIDE 1 GM TAB PO SCH (20:12)
[2017-04-06] MEDS: METHOCARBAMOL 500 MG TAB PO SCH (20:12)
[2017-04-06 22:00] VITALS: BP 145/90; PULSE 82
[2017-04-07] VITALS (8 sets, daily range): BP systolic 143–189; BP diastolic 8–98; PULSE 75–90; RESP 18–20
[2017-04-07] MEDS: LEVOTHYROXINE 25 MCG TAB PO SCH (05:11)
[2017-04-07] MEDS: SOD CHLORIDE 0.9% 1,000 ML IV SCH ×3 (05:11→23:20)
[2017-04-07] MEDS: PANTOPRAZOLE (EC) 40 MG TAB PO SCH (05:11)
[2017-04-07] MEDS: LEVOTHYROXINE 150 MCG TAB PO SCH (05:11)
[2017-04-07 06:24] LABS: BASOPHIL # 0.1 10^3/ul (0.0-0.1); BASOPHILS % 0.9 % (0.0-2.0); EOSINOPHILS # 0.3 10^3/ul (0.0-0.5); EOSINOPHILS % 5.2 % (0.0-7.0); HEMATOCRIT 33.3 % (37.0-47.0); HEMOGLOBIN 11.4 g/dl (12.0-16.0); LYMPHOCYTES # 1.8 10^3/ul (0.8-2.9); LYMPHOCYTES % 31.9 % (15.0-51.0); MEAN CORPUSCULAR HEMOGLOBIN 33.1 pg (29.0-33.0); MEAN CORPUSCULAR HGB CONC 34.2 g/dl (32.0-37.0); MEAN CORPUSCULAR VOLUME 96.8 fl (82.0-101.0); MEAN PLATELET VOLUME 9.5 fl (7.4-10.4); MONOCYTE # 0.6 10^3/ul (0.3-0.9); NEUTROPHILS % 50.6 % (39.0-77.0); PLATELET COUNT 262 10^3/UL (140-415); RED BLOOD COUNT 3.44 10^6/ul (4.20-5.40); RED CELL DISTRIBUTION WIDTH 13.2 % (11.5-14.5); WHITE BLOOD COUNT 5.6 10^3/ul (4.8-10.8)
[2017-04-07 06:46] LABS: CREATININE 0.56 mg/dl (0.44-1.00); MAGNESIUM 1.8 mg/dl (1.7-2.5); PHOSPHORUS 4.1 mg/dl (2.5-4.9); POTASSIUM 4.1 mmol/L (3.5-5.1)
[2017-04-07] MEDS: GUAIFENESIN LA 600 MG TABSR PO SCH ×2 (08:13→21:05)
[2017-04-07] MEDS: METHOCARBAMOL 500 MG TAB PO SCH ×3 (08:13→21:05)
[2017-04-07] MEDS: carBAMAZepine (XR) 100 MG TABSR PO SCH ×2 (08:14→21:05)
[2017-04-07] MEDS: DOCUSATE SODIUM 250 MG CAP PO SCH ×2 (08:14→21:04)
[2017-04-07] MEDS: SODIUM CHLORIDE 1 GM TAB PO SCH ×2 (08:14→21:00)
[2017-04-07] MEDS: LISINOPRIL 20 MG TAB PO PRN (08:56)
[2017-04-07] MEDS: SOTALOL 80 MG TAB PO SCH ×2 (08:57→21:11)
[2017-04-07] MEDS: POLYETHYLENE GLYCOL 17 GM PACKET GTB SCH ×2 (09:00→21:00)
--- NOTE | 2017-04-07 11:46 | PN ---
Date/Time of Note Date/Time of Note DATE: 04/07/17 TIME: 11:40 Assessment/Plan VTE Prophylaxis VTE Prophylaxis Intervention: other Lines/Catheters IV Catheter Type (from Nrsg): Peripheral IV Assessment/Plan Assessment/Plan 1. nausea , vomiting and diarrhea are resolving 2. hyponatremia not improving, increase iv fluid, started bicitra for met acidosis, free water restriction with NS iv. consider demeclocycline vs sansa 3. A fib 4. cardiac pacemaker 5. R ankle fracture, started robaxin 6. constipation, colace & miralax 7. severe anxiety: patient does not admit to but relates 8. htn: pain, stress and anxiety 9. psych: patient stated she does not have confidence in the current treatment regimen, took 45 mins to explain why she was on xarelto, good to control pain, bp med necessity, how hyponatremia came about, treatment of free water restriction, why hypertonic saline is currently not needed, - patient agrees to current treatment, has more confidence after explanation. and nurse was at bedside. Continue IV fluids . Replace magnesium . Labs in am . Subjective 24 Hr Interval Summary Constitutional: no complaints Eyes: no complaints ENT: no complaints Respiratory: no complaints Cardiovascular: No chest pain, No edema Gastrointestinal: no complaints, No pain Genitourinary: no complaints Exam/Review of Systems Vital Signs Vitals Vital Signs Date Time Temp Pulse Resp B/P Pulse Ox O2 Delivery O2 Flow Rate FiO2 04/07/17 10:12 77 18 156/87 96 Room Air 04/07/17 07:54 98.6 Intake and Output 04/06/17 04/06/17 04/07/17 15:00 23:00 07:00 Intake Total 1920 ml 1315 ml Balance 1920 ml 1315 ml Exam Constitutional: alert, oriented, well developed Head: normocephalic Eyes: EOMI Neck: non-tender, supple Respiratory: clear to auscultation Cardiovascular: regular rate and rhythm Neurological: ART EDUCATOR II-XII intact Results Result Diagram: 04/07/17 0526 04/07/17525 Results 24 hrs Laboratory Tests Test 04/07/17 05:26 White Blood Count 5.6 Red Blood Count 3.44 L Hemoglobin 11.4 L Hematocrit 33.3 L Mean Corpuscular Volume 96.8 Mean Corpuscular Hemoglobin 33.1 H Mean Corpuscular Hemoglobin Concent 34.2 Red Cell Distribution Width 13.2 Platelet Count 262 Mean Platelet Volume 9.5 Neutrophils % 50.6 Lymphocytes % 31.9 Monocytes % 11.0 Eosinophils % 5.2 Basophils % 0.9 Nucleated Red Blood Cells % 0.0 Neutrophils # (Manual) 2.8 Lymphocytes # 1.8 Monocytes # 0.6 Eosinophils # 0.3 Basophils # 0.1 Nucleated Red Blood Cells # 0.0 Sodium Level 124 L Potassium Level 4.1 Chloride Level 95 L Carbon Dioxide Level 16 L Anion Gap 17 #H Blood Urea Nitrogen 9 Creatinine 0.56 Glucose Level 84 Calcium Level 8.0 L Phosphorus Level 4.1 Magnesium Level 1.8 Medications Medications Current Medications Ondansetron HCl (Zofran Inj) 4 mg Q6H PRN IV NAUSEA AND/OR VOMITING; Start 04/04 at 15:30 Acetaminophen (Tylenol Tab) 650 mg Q6H PRN PO PAIN LEVEL 1-3 OR FEVER; Start at 15:30 Atorvastatin Calcium (Lipitor) 10 mg QHS PO Last administered on 04/06/17 20:11 ; Admin Dose 10 MG; Start 04/04/17 at 21:00 Carbamazepine (Tegretol Xr) 400 mg Q12 PO Last administered on 04/07/17 08:14 ; Admin Dose 400 MG; Start 04/04/17 at 21:00 Lisinopril (Zestril) 20 mg DAILY PRN PO ELEVATED BLOOD PRESSURE Last administered on 04/07/17 08:56; Admin Dose 20 MG; Start 04/04/17 at 15:30 Magnesium Hydroxide (Milk Of Mag) 30 ml Q24H PRN PO CONSTIPATION; Start at 15:30 Pantoprazole (Protonix Tab) 40 mg DAILY@06 PO Last administered on 04/07/17 05 :11; Admin Dose 40 MG; Start 04/05/17 at 06:00 Tramadol HCl (Ultram) 50 mg Q6H PRN PO PAIN Last administered on 04/06/17 12:27 ; Admin Dose 50 MG; Start 04/04/17 at 17:00 Oxycodone/ Acetaminophen (Percocet (5/ 325)) 1 tab Q4H PRN PO SEVERE PAIN LEVEL 7-10 Last administered on 04/06/17 23:29; Admin Dose 1 TAB; Start 04/04/17 at 17:00 Zolpidem Tartrate (Ambien) 5 mg HS PRN PO INSOMNIA; Start 04/04/17 at 23:00 Sotalol HCl (Betapace) 160 mg BID PO Last administered on 04/07/17 08:57; Admin Dose 160 MG; Start 04/05/17 at 09:30 Guaifenesin (Mucinex) 600 mg BID PO Last administered on 04/07/17 08:13; Admin Dose 600 MG; Start 04/05/17 at 09:30 Levothyroxine Sodium (Synthroid) 150 mcg DAILY@06 PO Last administered on 05:11; Admin Dose 150 MCG; Start 04/06/17 at 08:00; Stop 04/08/17 at 23:00 Levothyroxine Sodium (Synthroid) 25 mcg DAILY@06 PO Last administered on 05:11; Admin Dose 25 MCG; Start 04/06/17 at 08:00; Stop 04/08/17 at 23:00 Methocarbamol (Robaxin) 500 mg TID PO Last administered on 04/07/17 08:13; Admin Dose 500 MG; Start 04/06/17 at 21:00 Polyethylene Glycol (Miralax) 17 gm BID GTB ; Start 04/06/17 at 21:00 Docusate Sodium (Colace) 250 mg BID PO Last administered on 04/07/17 08:14; Admin Dose 250 MG; Start 04/06/17 at 21:00 Sodium Chloride (Nacl) 2 gm BID PO Last administered on 04/07/17 08:14; Admin Dose 2 GM; Start 04/06/17 at 21:00 Citric Acid/ Sodium Citrate (Bicitra) 30 ml TID PO ; Start 04/07/17 at 13:00; Stop 04/09/17 at 09:01 Hydralazine HCl (Apresoline) 10 mg Q4H PRN IV SBP>150; Start 04/07/17 at 11:30 CAYDEN PRICE MD Apr 07, 2017 11:46
[2017-04-07] MEDS: CITRIC ACID/NA CITRATE 30 ML CUP PO SCH ×2 (13:03→21:04)
[2017-04-07] MEDS: RIVAROXABAN 10 MG TABLET PO SCH (17:40)
[2017-04-07] MEDS: ATORVASTATIN 10 MG TAB PO SCH (21:05)
[2017-04-07] MEDS: hydrALAzine 20 MG INJ IV PRN (22:24)
[2017-04-07] MEDS: traMADol 50 MG TAB PO PRN (23:17)
[2017-04-08 02:08] VITALS: BP 138/66; RESP 20
[2017-04-08] MEDS: OXYCODONE/ACETAMINOPHEN (5/325) TAB PO PRN ×2 (02:10→16:24)
[2017-04-08 05:54] LABS: BASOPHIL # 0.1 10^3/ul (0.0-0.1); BASOPHILS % 0.9 % (0.0-2.0); EOSINOPHILS # 0.3 10^3/ul (0.0-0.5); EOSINOPHILS % 4.3 % (0.0-7.0); HEMATOCRIT 33.1 % (37.0-47.0); HEMOGLOBIN 11.5 g/dl (12.0-16.0); LYMPHOCYTES # 1.6 10^3/ul (0.8-2.9); LYMPHOCYTES % 24.3 % (15.0-51.0); MEAN CORPUSCULAR HEMOGLOBIN 33.5 pg (29.0-33.0); MEAN CORPUSCULAR HGB CONC 34.7 g/dl (32.0-37.0); MEAN CORPUSCULAR VOLUME 96.5 fl (82.0-101.0); MEAN PLATELET VOLUME 9.5 fl (7.4-10.4); MONOCYTE # 0.9 10^3/ul (0.3-0.9); MONOCYTES % 13.2 % (0.0-11.0); NEUTROPHILS % 56.9 % (39.0-77.0); PLATELET COUNT 246 10^3/UL (140-415); RED BLOOD COUNT 3.43 10^6/ul (4.20-5.40); RED CELL DISTRIBUTION WIDTH 13.2 % (11.5-14.5); WHITE BLOOD COUNT 6.8 10^3/ul (4.8-10.8)
[2017-04-08] MEDS: LEVOTHYROXINE 25 MCG TAB PO SCH (06:38)
[2017-04-08] MEDS: LEVOTHYROXINE 150 MCG TAB PO SCH (06:40)
[2017-04-08] MEDS: PANTOPRAZOLE (EC) 40 MG TAB PO SCH (06:41)
[2017-04-08 06:42] LABS: ALBUMIN/GLOBULIN RATIO 1.11; BILIRUBIN,INDIRECT 0.1 mg/dl (0-1.1); BILIRUBIN,TOTAL 0.1 mg/dl (0.2-1.3); CALCIUM 8.5 mg/dl (8.4-10.2); CREATININE 0.59 mg/dl (0.44-1.00); MAGNESIUM 1.6 mg/dl (1.7-2.5); PHOSPHORUS 4.2 mg/dl (2.5-4.9); POTASSIUM 3.9 mmol/L (3.5-5.1); TOTAL PROTEIN 5.7 g/dl (6.1-8.1)
[2017-04-08 08:20] VITALS: BP 158/76; RESP 18
--- NOTE | 2017-04-08 08:27 | PN ---
Date/Time of Note Date/Time of Note DATE: 04/08/17 TIME: 08:22 Assessment/Plan VTE Prophylaxis VTE Prophylaxis Intervention: other Lines/Catheters IV Catheter Type (from [facility]): Peripheral IV Urinary Cath still in place: Yes Reason Cath still needed: urinary retention Assessment/Plan Chief Complaint/Hosp Course 1. nausea , vomiting and diarrhea have resolved 2. hyponatremia is correcting 3. A fib 4. cardiac pacemaker 5. R ankle fracture D/C IV fluids . Replace magnesium . Labs in am . Problems: Subjective 24 Hr Interval Summary Free Text/Dictation She is feeling better . Her nausea and diarrhea have resolved . Constitutional: no complaints Respiratory: no complaints Cardiovascular: no complaints Gastrointestinal: no complaints Genitourinary: no complaints Musculoskeletal: no complaints Neurologic: no complaints Exam/Review of Systems Vital Signs Vitals Vital Signs Date Time Temp Pulse Resp B/P Pulse Ox O2 Delivery O2 Flow Rate FiO2 04/08/17 08:20 97.9 75 18 158/76 99 04/07/17 17:14 Room Air Intake and Output 04/07/17 04/07/17 04/08/17 15:00 23:00 07:00 Intake Total 675 ml 1180 ml 1670 ml Balance 675 ml 1180 ml 1670 ml Exam R ankle is in a large cast . Constitutional: alert, oriented, well developed ENMT: nl external ears & nose, nl lips & teeth, nl nasal mucosa & septum Respiratory: clear to auscultation, normal air movement Cardiovascular: regular rate and rhythm Gastrointestinal: nl liver, spleen, non-tender, soft Musculoskeletal: nl extremities to inspection Results Result Diagram: 04/08/17 0527 04/08/17 0527 Results 24 hrs Laboratory Tests Test 04/08/17 05:27 White Blood Count 6.8 # Red Blood Count 3.43 L Hemoglobin 11.5 L Hematocrit 33.1 L Mean Corpuscular Volume 96.5 Mean Corpuscular Hemoglobin 33.5 H Mean Corpuscular Hemoglobin Concent 34.7 Red Cell Distribution Width 13.2 Platelet Count 246 Mean Platelet Volume 9.5 Neutrophils % 56.9 Lymphocytes % 24.3 Monocytes % 13.2 H Eosinophils % 4.3 Basophils % 0.9 Nucleated Red Blood Cells % 0.0 Neutrophils # (Manual) 3.9 Lymphocytes # 1.6 Monocytes # 0.9 Eosinophils # 0.3 Basophils # 0.1 Nucleated Red Blood Cells # 0.0 Sodium Level 131 L Potassium Level 3.9 Chloride Level 101 Carbon Dioxide Level 26 # Anion Gap 8 # Blood Urea Nitrogen 8 Creatinine 0.59 Glucose Level 97 Calcium Level 8.5 Phosphorus Level 4.2 Magnesium Level 1.6 L Total Bilirubin 0.1 L Direct Bilirubin 0.00 Indirect Bilirubin 0.1 Aspartate Amino Transf (AST/SGOT) 17 Alanine Aminotransferase (ALT/SGPT) 31 Alkaline Phosphatase 86 Total Protein 5.7 L Albumin 3.0 L Globulin 2.70 Albumin/Globulin Ratio 1.11 Medications Medications Current Medications Ondansetron HCl (Zofran Inj) 4 mg Q6H PRN IV NAUSEA AND/OR VOMITING; Start 04/04 at 15:30 Acetaminophen (Tylenol Tab) 650 mg Q6H PRN PO PAIN LEVEL 1-3 OR FEVER; Start at 15:30 Atorvastatin Calcium (Lipitor) 10 mg QHS PO Last administered on 04/07/17 21: 05; Admin Dose 10 MG; Start 04/04/17 at 21:00 Carbamazepine (Tegretol Xr) 400 mg Q12 PO Last administered on 04/07/17 21:05 ; Admin Dose 400 MG; Start 04/04/17 at 21:00 Lisinopril (Zestril) 20 mg DAILY PRN PO ELEVATED BLOOD PRESSURE Last administered on 04/07/17 08:56; Admin Dose 20 MG; Start 04/04/17 at 15:30 Magnesium Hydroxide (Milk Of Mag) 30 ml Q24H PRN PO CONSTIPATION; Start at 15:30 Pantoprazole (Protonix Tab) 40 mg DAILY@06 PO Last administered on 04/08/17 06 :41; Admin Dose 40 MG; Start 04/05/17 at 06:00 Tramadol HCl (Ultram) 50 mg Q6H PRN PO PAIN Last administered on 04/07/17 23: 17; Admin Dose 50 MG; Start 04/04/17 at 17:00 Oxycodone/ Acetaminophen (Percocet (5/ 325)) 1 tab Q4H PRN PO SEVERE PAIN LEVEL 7-10 Last administered on 04/08/17 02:10; Admin Dose 1 TAB; Start at 17:00 Zolpidem Tartrate (Ambien) 5 mg HS PRN PO INSOMNIA; Start 04/04/17 at 23:00 Sotalol HCl (Betapace) 160 mg BID PO Last administered on 04/07/17 21:11; Admin Dose 160 MG; Start 04/05/17 at 09:30 Guaifenesin (Mucinex) 600 mg BID PO Last administered on 04/07/17 21:05; Admin Dose 600 MG; Start 04/05/17 at 09:30 Levothyroxine Sodium (Synthroid) 150 mcg DAILY@06 PO Last administered on 06:40; Admin Dose 150 MCG; Start 04/06/17 at 08:00; Stop 04/08/17 at 23:00 Levothyroxine Sodium (Synthroid) 25 mcg DAILY@06 PO Last administered on 06:38; Admin Dose 25 MCG; Start 04/06/17 at 08:00; Stop 04/08/17 at 23:00 Methocarbamol (Robaxin) 500 mg TID PO Last administered on 04/07/17 21:05; Admin Dose 500 MG; Start 04/06/17 at 21:00 Polyethylene Glycol (Miralax) 17 gm BID GTB ; Start 04/06/17 at 21:00 Docusate Sodium (Colace) 250 mg BID PO Last administered on 04/07/17 21:04; Admin Dose 250 MG; Start 04/06/17 at 21:00 Hydralazine HCl (Apresoline) 10 mg Q4H PRN IV SBP>150 Last administered on 04/07 22:24; Admin Dose 10 MG; Start 04/07/17 at 11:30 Sodium Chloride (Nacl) 1 gm BID PO ; Start 04/08/17 at 10:00; Stop 04/09/17 at 21:01 CHUCK MCCRACKEN MD Apr 08, 2017 08:27
[2017-04-08] MEDS: DOCUSATE SODIUM 250 MG CAP PO SCH ×2 (08:53→20:32)
[2017-04-08] MEDS: METHOCARBAMOL 500 MG TAB PO SCH ×3 (08:53→22:58)
[2017-04-08] MEDS: GUAIFENESIN LA 600 MG TABSR PO SCH ×2 (08:53→20:31)
[2017-04-08] MEDS: carBAMAZepine (XR) 100 MG TABSR PO SCH ×2 (08:53→20:34)
[2017-04-08] MEDS: POLYETHYLENE GLYCOL 17 GM PACKET GTB SCH ×3 (08:54→20:34)
[2017-04-08] MEDS: LISINOPRIL 20 MG TAB PO SCH (08:54)
[2017-04-08 09:25] LABS: IRON 53 ug/dl (35-150)
[2017-04-08 09:35] LABS: TOTAL IRON BINDING CAPACITY 176 ug/dl (241-421)
[2017-04-08] MEDS ORDERED: MAGNESIUM SULFATE 2 GM/50 ML 50 ML IVPB ONE (10:00)
[2017-04-08] MEDS: SODIUM CHLORIDE 1 GM TAB PO SCH ×2 (10:28→20:33)
[2017-04-08] MEDS: SOTALOL 80 MG TAB PO SCH ×2 (10:28→20:32)
[2017-04-08] MEDS: ONDANSETRON 4 MG INJ IV PRN ×2 (10:33→20:41)
[2017-04-08 15:06] VITALS: BP 152/71; RESP 20
[2017-04-08] MEDS: RIVAROXABAN 10 MG TABLET PO SCH (17:31)
[2017-04-08 19:26] VITALS: BP 136/73; RESP 18
[2017-04-08] MEDS: ATORVASTATIN 10 MG TAB PO SCH (20:32)
[2017-04-08] MEDS: hydrALAzine 20 MG INJ IV PRN (21:49)
[2017-04-09 01:59] VITALS: BP 157/85; RESP 18
[2017-04-09] MEDS: OXYCODONE/ACETAMINOPHEN (5/325) TAB PO PRN ×3 (04:36→16:38)
[2017-04-09] MEDS: PANTOPRAZOLE (EC) 40 MG TAB PO SCH (06:20)
[2017-04-09 06:59] LABS: BASOPHIL # 0.1 10^3/ul (0.0-0.1); EOSINOPHILS # 0.3 10^3/ul (0.0-0.5); EOSINOPHILS % 4.2 % (0.0-7.0); HEMOGLOBIN 11.7 g/dl (12.0-16.0); LYMPHOCYTES # 1.2 10^3/ul (0.8-2.9); LYMPHOCYTES % 19.9 % (15.0-51.0); MEAN CORPUSCULAR HEMOGLOBIN 32.1 pg (29.0-33.0); MEAN CORPUSCULAR HGB CONC 33.4 g/dl (32.0-37.0); MEAN CORPUSCULAR VOLUME 96.2 fl (82.0-101.0); MEAN PLATELET VOLUME 9.8 fl (7.4-10.4); MONOCYTE # 0.7 10^3/ul (0.3-0.9); MONOCYTES % 11.7 % (0.0-11.0); NEUTROPHILS % 62.9 % (39.0-77.0); PLATELET COUNT 285 10^3/UL (140-415); RED BLOOD COUNT 3.64 10^6/ul (4.20-5.40); RED CELL DISTRIBUTION WIDTH 13.5 % (11.5-14.5); WHITE BLOOD COUNT 6.2 10^3/ul (4.8-10.8)
[2017-04-09 07:33] LABS: ALBUMIN/GLOBULIN RATIO 1.11; BILIRUBIN,INDIRECT 0.2 mg/dl (0-1.1); BILIRUBIN,TOTAL 0.2 mg/dl (0.2-1.3); CALCIUM 9.1 mg/dl (8.4-10.2); CREATININE 0.6 mg/dl (0.44-1.00); MAGNESIUM 1.9 mg/dl (1.7-2.5); POTASSIUM 4.2 mmol/L (3.5-5.1); TOTAL PROTEIN 5.7 g/dl (6.1-8.1)
[2017-04-09 07:39] VITALS: BP 165/81; RESP 18
[2017-04-09] MEDS: carBAMAZepine (XR) 100 MG TABSR PO SCH (08:22)
[2017-04-09] MEDS: SODIUM CHLORIDE 1 GM TAB PO SCH (08:22)
[2017-04-09] MEDS: DOCUSATE SODIUM 250 MG CAP PO SCH (08:23)
[2017-04-09] MEDS: SOTALOL 80 MG TAB PO SCH (08:23)
[2017-04-09] MEDS: LISINOPRIL 20 MG TAB PO SCH (08:24)
[2017-04-09] MEDS: METHOCARBAMOL 500 MG TAB PO SCH ×2 (08:24→12:27)
[2017-04-09] MEDS: ONDANSETRON 4 MG INJ IV PRN (08:32)
[2017-04-09] MEDS: LEVOTHYROXINE 175 MCG TAB PO SCH (08:35)
--- NOTE | 2017-04-09 08:53 | PN ---
Date/Time of Note Date/Time of Note DATE: 04/09/17 TIME: 08:45 Assessment/Plan VTE Prophylaxis VTE Prophylaxis Intervention: other Lines/Catheters IV Catheter Type (from Nrs): Saline Lock Urinary Cath still in place: Yes Reason Cath still needed: urinary retention Assessment/Plan Chief Complaint/Hosp Course 1. nausea , vomiting and diarrhea have resolved 2. hyponatremia is correcting 3. A fib , persistent 4. cardiac pacemaker 5. R ankle fracture D/C IV fluids . Replace magnesium . Labs in am . She could be discharged today if neck pain improves . She has an appointment with Dr Pepe today to change her R foot cast . Problems: Subjective 24 Hr Interval Summary Free Text/Dictation she c/o neck pain . She is using ice pack , Percocet and Robaxin. Constitutional: no complaints Respiratory: no complaints Cardiovascular: no complaints Gastrointestinal: no complaints Musculoskeletal: neck pain Neurologic: no complaints Exam/Review of Systems Vital Signs Vitals Vital Signs Date Time Temp Pulse Resp B/P Pulse Ox O2 Delivery O2 Flow Rate FiO2 04/09/17 07:39 97.9 81 18 165/81 99 04/07/17 17:14 Room Air Intake and Output 04/08/17 04/08/17 04/09/17 15:00 23:00 07:00 Intake Total 210 ml 890 ml 225 ml Balance 210 ml 890 ml 225 ml Exam R ankle is in a large cast . Constitutional: alert, frail, oriented, well developed Neck: other, supple Respiratory: clear to auscultation, normal air movement Cardiovascular: regular rate and rhythm Gastrointestinal: non-tender, soft Results Result Diagram: 04/09/17 0539 04/09/17 0539 Results 24 hrs Laboratory Tests Test 04/09/17 05:39 White Blood Count 6.2 Red Blood Count 3.64 L Hemoglobin 11.7 L Hematocrit 35.0 L Mean Corpuscular Volume 96.2 Mean Corpuscular Hemoglobin 32.1 Mean Corpuscular Hemoglobin Concent 33.4 Red Cell Distribution Width 13.5 Platelet Count 285 Mean Platelet Volume 9.8 Neutrophils % 62.9 Lymphocytes % 19.9 Monocytes % 11.7 H Eosinophils % 4.2 Basophils % 1.0 Nucleated Red Blood Cells % 0.0 Neutrophils # (Manual) 3.9 Lymphocytes # 1.2 Monocytes # 0.7 Eosinophils # 0.3 Basophils # 0.1 Nucleated Red Blood Cells # 0.0 Sodium Level 130 L Potassium Level 4.2 Chloride Level 99 Carbon Dioxide Level 26 Anion Gap 9 Blood Urea Nitrogen 5 L Creatinine 0.60 Glucose Level 108 Calcium Level 9.1 Magnesium Level 1.9 Total Bilirubin 0.2 Direct Bilirubin 0.00 Indirect Bilirubin 0.2 Aspartate Amino Transf (AST/SGOT) 16 Alanine Aminotransferase (ALT/SGPT) 26 Alkaline Phosphatase 87 Total Protein 5.7 L Albumin 3.0 L Globulin 2.70 Albumin/Globulin Ratio 1.11 Medications Medications Current Medications Ondansetron HCl (Zofran Inj) 4 mg Q6H PRN IV NAUSEA AND/OR VOMITING Last administered on 04/09/17 08:32; Admin Dose 4 MG; Start 04/04/17 at 15:30 Acetaminophen (Tylenol Tab) 650 mg Q6H PRN PO PAIN LEVEL 1-3 OR FEVER; Start at 15:30 Atorvastatin Calcium (Lipitor) 10 mg QHS PO Last administered on 04/08/17 20: 32; Admin Dose 10 MG; Start 04/04/17 at 21:00 Carbamazepine (Tegretol Xr) 400 mg Q12 PO Last administered on 04/09/17 08:22 ; Admin Dose 400 MG; Start 04/04/17 at 21:00 Magnesium Hydroxide (Milk Of Mag) 30 ml Q24H PRN PO CONSTIPATION; Start at 15:30 Pantoprazole (Protonix Tab) 40 mg DAILY@06 PO Last administered on 04/09/17 06 :20; Admin Dose 40 MG; Start 04/05/17 at 06:00 Tramadol HCl (Ultram) 50 mg Q6H PRN PO PAIN Last administered on 04/07/17 23: 17; Admin Dose 50 MG; Start 04/04/17 at 17:00 Oxycodone/ Acetaminophen (Percocet (5/ 325)) 1 tab Q4H PRN PO SEVERE PAIN LEVEL 7-10 Last administered on 04/09/17 08:23; Admin Dose 1 TAB; Start at 17:00 Zolpidem Tartrate (Ambien) 5 mg HS PRN PO INSOMNIA; Start 04/04/17 at 23:00 Sotalol HCl (Betapace) 160 mg BID PO Last administered on 04/09/17 08:23; Admin Dose 160 MG; Start 04/05/17 at 09:30 Guaifenesin (Mucinex) 600 mg BID PO Last administered on 04/08/17 20:31; Admin Dose 600 MG; Start 04/05/17 at 09:30 Methocarbamol (Robaxin) 500 mg TID PO Last administered on 04/09/17 08:24; Admin Dose 500 MG; Start 04/06/17 at 21:00 Polyethylene Glycol (Miralax) 17 gm BID GTB Last administered on 04/08/17 16: 24; Admin Dose 17 GM; Start 04/06/17 at 21:00 Docusate Sodium (Colace) 250 mg BID PO Last administered on 04/09/17 08:23; Admin Dose 250 MG; Start 04/06/17 at 21:00 Hydralazine HCl (Apresoline) 10 mg Q4H PRN IV SBP>150 Last administered on 04/08 21:49; Admin Dose 10 MG; Start 04/07/17 at 11:30 Sodium Chloride (Nacl) 1 gm BID PO Last administered on 04/09/17 08:22; Admin Dose 1 GM; Start 04/08/17 at 10:00; Stop 04/09/17 at 21:01 Lisinopril (Zestril) 20 mg DAILY PO Last administered on 04/09/17 08:24; Admin Dose 20 MG; Start 04/08/17 at 09:00 CHUCK MCCRACKEN MD Apr 09, 2017 08:53
[2017-04-09] MEDS: GUAIFENESIN LA 600 MG TABSR PO SCH (09:00)
[2017-04-09] MEDS: POLYETHYLENE GLYCOL 17 GM PACKET GTB SCH (09:00)
[2017-04-09] MEDS: traMADol 50 MG TAB PO PRN (12:27)
[2017-04-09 15:04] VITALS: BP 155/76; RESP 18
--- NOTE | 2017-04-09 16:33 | PDOCDIS ---
Discharge Instructions CONDITION Patient Condition: Good HOME CARE INSTRUCTIONS: Diet Instructions: RegularSpecial Diet: regular ACTIVITY: Activity Restrictions: Slowly Increase Activity Rest between Activity Avoid heavy lifting Do not Drive Do not operate Machinery Partial Weight Bearing Bathing Restrictions: Sponge Bath FOLLOW UP/APPOINTMENTS Follow-up Plan Dr Pepe , CHUCK Peterson MD Apr 09, 2017 16:33
[2017-04-09] MEDS: RIVAROXABAN 10 MG TABLET PO SCH (18:00)
--- NOTE | 2017-04-13 04:17 | DS ---
DATE OF ADMISSION: 04/04/2017 DATE OF DISCHARGE: 04/09/2017 HISTORY OF PRESENT ILLNESS/HOSPITAL COURSE: This 66-year-old female was admitted from home after she presented to the emergency room complaining of generalized weakness, diarrhea and vomiting. The patient was ill for 2-3 days. She has a long history that initially started on 02/12/2017 when she slipped in her home, fell and injured her right leg. The patient was diagnosed with a distal fracture of the right fibula and medial malleolus. The patient eventually underwent surgery by Dr. Jay Pepe on 02/25/2017. She was then stabilized and sent to [facility]. She was discharged from [facility] on 03/29/2017 to her home. The patient, however, at home continued to have pain in her right ankle with developing nausea, vomiting, diarrhea and generalized weakness. This progressed and she was brought into the emergency room here to [facility] and was found to have hyponatremia which has been a chronic problem with her sodiums as low as 122. On this admission she was 127. The patient has other outstanding medical problems including atrial fibrillation, cardiac pacemaker, hypertension, hypothyroidism, hyperparathyroidism and osteoporosis. The patient was given intravenous saline and she seemed to improve while in the hospital. She was also given antiemetics and her pain medication was adjusted. The patient improved enough and was discharged home to the care of her and to a home health agency. The patient will continue to be followed by me as an outpatient. I will have labs done by the home health agency. The home health agency is [facility]. At the time of discharge the patient was in good condition. She will follow up with Dr. Pepe for a cast change on her right ankle. DISCHARGE MEDICATIONS: Include the following: Lisinopril 20 mg twice a day, MiraLAX daily p.r.n. constipation, levothyroxine 175 mcg a day, sotalol 160 mg twice a day, Mucinex 600 mg twice a day, Pantoprazole 40 mg a day, Atorvastatin 10 mg a day, tramadol 50 mg q.6 hours p.r.n. pain, Percocet p.r.n. severe pain, Zofran 4 mg q.6 hours ODT p.r.n. nausea, carbamazepine 400 mg extended release twice a day. FINAL DIAGNOSES: 1. Dehydration due to nausea, vomiting and diarrhea. 2. Hyponatremia. 3. Anemia. 4. Right ankle fracture , S/P ORIF , now in a large cast. 5. History of atrial fibrillation. 6. Cardiac pacemaker. Dictated By: Kenji Becker MD /anamika/annabelle /Document#: [id number] MTDD
== END 2017-04-09 18:05 | disposition home health service (06) | DRG 392 ==
LOC: E/R 09:46 → MS2 13:29
PROVIDERS: ADMIT Internal Medicine; ATTEND Internal Medicine
DX: R11.2 Nausea with vomiting, unspecified (principal); E87.1 Hypo-osmolality and hyponatremia; I48.91 Unspecified atrial fibrillation; E86.0 Dehydration; I10 Essential (primary) hypertension; E03.9 Hypothyroidism, unspecified; Z95.0 Presence of cardiac pacemaker; F41.1 Generalized anxiety disorder; E78.5 Hyperlipidemia, unspecified; M81.0 Age-related osteoporosis without current pathological fracture; E21.3 Hyperparathyroidism, unspecified; K21.9 Gastro-esophageal reflux disease without esophagitis; Z85.828 Personal history of other malignant neoplasm of skin; K59.00 Constipation, unspecified; F43.9 Reaction to severe stress, unspecified; S82.51XD Displaced fracture of medial malleolus of right tibia, subsequent encounter for closed fracture with routine healing; S82.831D Other fracture of upper and lower end of right fibula, subsequent encounter for closed fracture with routine healing; W01.0XXD Fall on same level from slipping, tripping and stumbling without subsequent striking against object, subsequent encounter; R19.7 Diarrhea, unspecified; D64.9 Anemia, unspecified
CPT/HCPCS: 36415; 74176; 80048; 80053; 81003; 82150; 82728; 83540; 83690; 83735; 84100; 84443; 84484; 85025; 93005; 96360; 97116; 97162; 97530; J0360; J2405; J3475; J7030; P9612

== ENCOUNTER 2018-08-13 08:23 | Inpatient (IN) | payer MEDICARE, BC ==
[~2018-08-13] VITALS: Ht 173.7 cm; Wt 114.0 kg
[2018-08-13] VITALS (19 sets, daily range): BP systolic 108–153; BP diastolic 56–85; PULSE 75–82; RESP 16–18
[~2018-08-13 08:23] MED LIST changes: -ACET-2047 PO; +LISI-471 PO; -LISI20TA11 PO; +MAGN400O19 PO; -MAGN400O4 PO; -RIVA10TA PO; -SOTA160T PO; -TRAZ300T15 PO
[2018-08-13] MEDS ORDERED: ZOLPIDEM 5 MG TAB PO PRN (10:00)
[2018-08-13] MEDS ORDERED: METHOCARBAMOL 750 MG TAB PO PRN (10:00)
[2018-08-13] MEDS ORDERED: ACETAMINOPHEN 500 MG TAB PO PRN (10:00)
[2018-08-13] MEDS ORDERED: ALLOPURINOL 300 MG TAB PO ONE (10:00)
[2018-08-13] MEDS: NS + KCL 20 MEQ 1,000 ML IV SCH (11:02)
[2018-08-13] MEDS ORDERED: MEPERIDINE 50 MG INJ IV PRN (12:00)
[2018-08-13] MEDS ORDERED: EPINEPHrine 1 MG INJ IM PRN (12:00)
[2018-08-13] MEDS ORDERED: DIPHENHYDRAMINE 50 MG INJ IV PRN (12:00)
[2018-08-13] MEDS ORDERED: ACETAMINOPHEN 325 MG TAB PO PRN (12:00)
[2018-08-13] MEDS ORDERED: FAMOTIDINE 20 MG TAB PO SCH (12:30)
[2018-08-13] MEDS ORDERED: ACETAMINOPHEN 500 MG TAB PO SCH (12:30)
[2018-08-13] MEDS ORDERED: DIPHENHYDRAMINE 25 MG CAP PO SCH (12:30)
[2018-08-13] MEDS ORDERED: BISACODYL 10 MG SUPP PR PRN (13:00)
[2018-08-13] MEDS ORDERED: RITUXIMAB IV SCH (13:00)
[2018-08-13] MEDS ORDERED: SOD CHLORIDE 0.9% IV SCH ×2 (13:00→20:00)
[2018-08-13] MEDS ORDERED: LISINOPRIL 20 MG TAB PO PRN (13:00)
--- NOTE | 2018-08-13 13:54 | HP ---
DATE OF ADMISSION: 08/13/2018 CHIEF COMPLAINT: Non-Hodgkin lymphoma, follicular grade III/III. HISTORY OF PRESENT ILLNESS: The patient is a 68-year-old female who was noted to have swelling in th e left parotid area in January of 2018. Initially this was felt to be due to facial asymmetry, possibly related to a recent fall. Over the next few months; however, it became apparent that there was a ma ss in the left parotid area. The patient did undergo an ultrasound-guided needle biopsy of the parotid mass at [facility] on 06/13/2018. This demonstrated findings consistent with a nonmalignant intraparotid lymph node. As the mass did persist it was decided to perform a surgical resection and this was done on 8. The patient at that time underwent a left superficial parotidectomy, which revealed a lymphoproli ferative disorder abnormality. Further studies verify that this was a grade III/III follicular non-H odgkin lymphoma. The patient also did undergo a PET CT scan which has demonstrated diffuse hypermetabolic lymphadenopa thy. This includes both parotid areas as well as cervical, supraclavicular, axillary, mediastinal, r etroperitoneal, mesothelial and inguinal lymphadenopathy. There is no other visceral involvement. The patient actually has been relatively asymptomatic. She has not had any weight loss. She has not complained of abdominal pain or distention. There has been no left upper quadrant discomfort or ear ly satiety. The patient has had no systemic symptoms such as fevers, chills or night sweats. The reina noonan is being admitted at this time for initiation of chemotherapy. The patient is to be treated wi a combination of rituximab and bendamustine. The patient is being admitted as this is in her firs t infusion of rituximab. PAST MEDICAL HISTORY: Multiple. They include atrial fibrillation, gastroesophageal reflux disease, hyperlipidemia, hyperparathyroidism, hypothyroidism, hypo-osmolality with hyponatremia, morbid obesit y, osteoporosis, paroxysmal atrial fibrillation with a pacemaker. PAST SURGICAL HISTORY: Include multiple orthopedic surgeries, including the above-mentioned parotid surgery. Patient has also had multiple orthopedic surgeries. She has also had a supracervical hyste rectomy as well as a tonsillectomy. She has had total knee arthroplasties as well as removal of hard ramirez. As mentioned, she has also had a pacemaker placement. FAMILY HISTORY: Remarkable only in that there is heart disease. SOCIAL HISTORY: Patient is . 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 She has no known exposures to industr ial toxins or ionizing radiation. She does not smoke and uses alcohol beverages occasionally. MEDICATIONS: 1. Omeprazole 20 mg daily. 2. Atorvastatin 10 mg daily. 3. Levofloxacin 175 mcg daily. 4. Ergocholecalciferol 5000 units weekly. 5. Betapace 160 mg orally. 6. Trazodone 300 mg, hour of sleep. 7. Tegretol 4 mg q.12h. 9. Denosumab 120 mg subcu every 6 months. 10. Lisinopril 10 mg twice a day. 11. Methocarbamol 750 mg every 6 hours p.r.n. ALLERGIES: THE PATIENT STATES SHE IS ALLERGIC TO: 1. LATEX. 2. HEPARIN ANALOGS. REVIEW OF SYSTEMS: GENERAL: The patient has no complaints of unusual weakness, malaise. No insomnia. No anorexia, no unusual weight loss or gain. No fevers or night sweats. HEENT: No complaints of headaches or dizziness. No diplopia or other visual disturbances. No dysph agia. CARDIORESPIRATORY: Shortness of breath, orthopnea, PND, chest pain, cough or hemoptysis. GASTROINTESTINAL: No complaints of abdominal pain or distention. No nausea or vomiting. No constip ation, diarrhea, melena, or hematochezia. GENITOURINARY: Does have some urinary incontinence and has had multiple recent urinary tract infecti ons. There is no flank pain. MUSCULOSKELETAL: Has had multiple orthopedic surgeries of the lower extremities and has joint pain i n knees and ankles. NEUROLOGIC: No unusual weakness, seizures, etc. PHYSICAL EXAMINATION: GENERAL: Reveals a well-developed but obese female who appears her stated age. She is alert and danish ented, in no acute distress. VITAL SIGNS: Temperature 98.2 orally, pulse 76 per minute and regular, respirations 18 per minute, b lood pressure 144/78. SKIN: No ecchymosis, no petechiae or rashes. Good turgor. HEENT: Normocephalic. No evidence of trauma. The pupils are equal, round, react to light and accom modation. Extraocular movements are intact. There is no scleral icterus. No subconjunctival hemorr hages. There are lens opacities in the left eye. Oral mucosa is moist without lesions. Tongue is w ell papillated. There is no gingival hyperplasia or hypertrophy of Waldeyer ring. Tympanic membrane s are shiny and intact bilaterally. There is recent surgical incision in the left parotid gland whic h is well healed. NECK: Supple. No jugular venous distention or thyroid enlargement. No carotid bruits. CHEST: Clear to auscultation and percussion. No rhonchi, wheezes, rales or rubs. There is no pain on percussion of spine, sternum, clavicles or ribs. There is a pacemaker in place in left anterior c hest. HEART: Irregularly irregular rate and rhythm. BREASTS: Not examined. ABDOMEN: Obese but soft. There is no organomegaly, mass or tenderness. No rhythm. No rebound tend erness, no ascites, no hernia defects. Bowel sounds are active. GENITALIA: Not examined. Rectal examination not examined. NODES: The only palpable lymph node is a 1 cm node in the right mid supraclavicular area. EXTREMITIES: Good range of motion, no clubbing, edema or cyanosis. There are surgical incisions ove r both knees and ankles. There are no palpable cords or Homans sign. NEUROLOGIC: Normal. 1. Follicular non-Hodgkin's lymphoma, grade III/III, stage IIIA. PLAN: The patient will be admitted to [facility]. She is to start chemotherapy an d receive rituximab and bendamustine. The patient will be pretreated with acetaminophen and Benadryl. The rituximab will be administered a s per protocol. The patient will also receive bendamustine. We will also obtain viral studies for hepatitis as the patient apparently has a history of hepatitis, but she is not sure what type. The patient has already been started on allopurinol and will be also started on acyclovir after disch arge. Dictated By: NIDA VELAZQUEZ MD SR/NTS Conf#: [id number] DID#: [id number] CC: NIDA VELAZQUEZ MD;*EndCC*
--- NOTE | 2018-08-13 14:17 | CONS ---
DATE OF ADMISSION: 08/13/2018 DATE OF CONSULTATION: TYPE OF CONSULTATION: Medical. Thank you, Dr. Silva, for asking me to participate in medical management of this patient. REASON FOR CONSULTATION: To manage the patient's atrial fibrillation, dysthymic disorder, gastroesop hageal reflux disease, hyperlipidemia. HISTORY OF PRESENT ILLNESS: This 68-year-old female had a surgery on 06/30/[address] Eder Menendez. a local ears, nose and throat specialist. Dr. Menendez saw the patient because she had a left parathy roid mass. His fine needle aspirate of the nodule did not give an accurate diagnosis so she underwen t a full resection of the nodule which turned out to be a lymph node and was positive for non-Hodgkin 's lymphoma. The patient subsequently underwent a PET scan which showed stage III non-Hodgkin's lymp jadiel. The patient was seen by Dr. Nida Silva and he recommended that she undergo chemotherapy. She is admitted now to [facility] to start chemotherapy. The patient is awake and alert. She is in her usual state of health and has no new complaints. I have seen the patient and take care of her as her primary care physician. PAST MEDICAL HISTORY: Remarkable for the following: Atrial fibrillation, episode of dehydration, dy sthymic disorder, gastroesophageal reflux disease, hyperlipidemia, hyperparathyroidism, history of ch ronic hyponatremia, hypothyroidism, morbid obesity, osteoporosis, cardiac pacemaker. PAST SURGICAL HISTORY: 1. Dental implant. 2. Femur fracture on the right. 3. Bilateral knee arthroscopy. 4. Retinal detachment repair. 5. Supracervical hysterectomy. 6. Tonsillectomy. 7. Right total knee replacement with subsequent fall and fracture. 8. Left ankle fusion. 9. Bilateral patellectomy. SOCIAL HISTORY: She is . Never smoked tobacco. Drinks alcohol socially 1 to 2 glasses of wi ne per week. She does not use illicit drugs. CURRENT MEDICATIONS: Include the followin. Omeprazole 20 mg a day. 2. Robaxin 750 mg twice a day. 3. Celebrex 200 mg daily p.r.n. pain. 4. Atorvastatin 10 mg a day. 5. Lisinopril 20 mg a day. 6. Carbamazepine extended release 400 mg twice a day. 7. Nexium 20 mg a day. 8. MiraLax 1 packet daily. 9. Levothyroxine 175 mcg a day. 10. Robaxin p.r.n. back spasms. 11. Sotalol 160 mg twice a day. 12. Trazodone 300 mg at bedtime. PHYSICAL EXAMINATION: GENERAL: At this time reveals a well-developed female in no apparent distress. VITAL SIGNS: Temperature 98.2, pulse is 76, respirations 18, blood pressure 144/78, O2 saturation 97 % on room air. HEENT: Head is normocephalic. Eyes: Extraocular muscles are intact. Nose and mouth are normal. NECK: Supple. No neck vein distention. LUNGS: Clear to auscultation. HEART: Regular rhythm. No murmurs, gallops or rubs. ABDOMEN: Soft, nontender, no masses or megaly. EXTREMITIES: No peripheral edema. NEUROLOGIC: Grossly intact. No obvious focal neurologic deficits. IMPRESSION: Non-Hodgkin's lymphoma, stage III. This patient is being admitted now to start chemothe rapy for non-Hodgkin's lymphoma. She will be given dexamethasone, bendamustine and Rituxan over the next 24 hours. She has other medical problems including paroxysmal atrial fibrillation, cardiac pace maker, hypothyroidism, dysthymia, hyperlipidemia. I will manage all of her other medical problems wh ile she is in the hospital. She is overall doing well at this time. PLAN: 1. Resume routine medications. 2. Check labs that were done earlier today. 3. Appropriate IV fluids for chemotherapy that has been ordered and will be given. 4. I will follow the patient along with you. Dictated By: CHUCK MCCRACKEN MD, ND/CINDA Conf#: [id number] DID#: [id number] CC: NIDA SILVA MD;*EndCC*
--- NOTE | 2018-08-13 17:42 | EN ---
Date/Time of Note Date/Time of Note DATE: 08/13/18 TIME: 17:38 Event Note Medicine Medicine Event Note Pt is tolerating initial infusion of rituximab well. Will receive bendamustine following completion of rituximab. Pt does have Hepatitis B antibodies but has been vaccinated. Hepatitic C antibodies are negative. Will be discharged after completion of day 1 chemotherapy. Will receive Day 2 bendamustine and peg-filgrastim as OP on 08/14/18 NIDA VELAZQUEZ MD Aug 13, 2018 17:42
[2018-08-13] MEDS ORDERED: BENDAMUSTINE HCL IV SCH (20:00)
[2018-08-13] MEDS ORDERED: DEXAMETHASONE 4 MG/ML 20 MG, ONDANSETRON INJ 16 MG in SOD CHLORIDE 0.9% 50 ML IVPB SCH (20:00)
[2018-08-13] MEDS ORDERED: DOCUSATE SODIUM 100 MG CAP PO SCH (21:00)
[2018-08-13] MEDS ORDERED: traZODone 100 MG TAB PO SCH (21:00)
[2018-08-13] MEDS ORDERED: SOTALOL 80 MG TAB PO SCH (21:00)
[2018-08-13] MEDS: ATORVASTATIN 10 MG TAB PO SCH ×2 (21:00→23:46)
[2018-08-13] MEDS ORDERED: carBAMAZepine (XR) 200 MG TABSR PO SCH (21:00)
[2018-08-14 00:15] VITALS: BP 135/73; PULSE 76; RESP 17
[2018-08-14 00:45] VITALS: BP 137/72; PULSE 76; RESP 16
[2018-08-14 01:00] VITALS: BP 144/75; PULSE 74; RESP 17
[2018-08-14] MEDS: NS + KCL 20 MEQ 1,000 ML IV SCH (01:20)
[2018-08-14] MEDS ORDERED: PANTOPRAZOLE (EC) 40 MG TAB PO SCH (06:00)
[2018-08-14] MEDS ORDERED: LEVOTHYROXINE 175 MCG TAB PO SCH (07:00)
[2018-08-14] MEDS ORDERED: POLYETHYLENE GLYCOL 17 GM PACKET PO SCH (09:00)
[2018-08-14] MEDS ORDERED: NON-FORMULARY/PATIENT OWN MED (Esomeprazole Mag Trihydrate (Nexium) 20 MG) PO SCH (09:00)
--- NOTE | 2018-08-20 08:41 | DS ---
DATE OF ADMISSION: 08/13/2018 DATE OF DISCHARGE: 08/14/2018 ADMITTING DIAGNOSIS: Follicular non-Hodgkin's lymphoma. DISCHARGE DIAGNOSES: Follicular non-Hodgkin's lymphoma. HOSPITAL COURSE: The patient is a 68-year-old female with a recent diagnosis of a follicular non-Hod gkin's lymphoma grade III/III. The patient was originally diagnosed when there was a parotid swelling noted in the left parotid area . The patient had a surgical resection of the parotid gland on 07/07/2018 and this revealed a lympho proliferative disorder consistent with a grade III/III follicular non-Hodgkin's lymphoma. A PET CT scan did demonstrate diffuse hypermetabolic lymphadenopathy, which included both parotid are a as well as cervical, supraclavicular, axillary, mediastinal, retroperitoneal, mesothelial and ingui nal lymphadenopathy. There was no visceral involvement. The patient was admitted to [facility] on 08/13/2018 in order to undergo chemothera py. The patient did receive chemotherapy with rituximab 855 mg. This was followed by bendamustine 2 00 mg. The patient tolerated therapy relatively well. She did develop some fever and chills requiring some slowing of the rituximab. The patient was discharged from the hospital on 08/14/2017 to be seen 24 hours later in the office fo r a second dose of bendamustine and also to receive pegfilgrastim. DISCHARGE MEDICATIONS: Included: 1. Levothyroxine 170 mcg daily. 2. Atorvastatin 10 mg daily. 3. Tegretol 400 mg q.12h. 4. Trazodone 300 mg hours of sleep. 5. Lisinopril 20 mg daily. 6. Allopurinol 300 mg daily. 7. Methocarbamol 750 mg every 8 hours p.r.n. muscle spasms. 8. Pantoprazole 40 mg daily. 9. Betapace 160 mg twice a day. DIET ON DISCHARGE: Regular diet. ACTIVITY: As tolerated. CONDITION UPON DISCHARGE: Good. Dictated By: NIDA VELAZQUEZ MD SR/NTS Conf#: [id number] DID#: [id number] CC: NIDA VELAZQUEZ MD;*EndCC*
== END 2018-08-14 01:35 | disposition home or self-care (01) | DRG 847 ==
LOC: MS1 08:23
PROVIDERS: ADMIT Internal Medicine Hematology & Oncology; ATTEND Internal Medicine Hematology & Oncology
DX: Z51.11 Encounter for antineoplastic chemotherapy (principal); C82.31 Follicular lymphoma grade IIIa, lymph nodes of head, face, and neck; Z95.0 Presence of cardiac pacemaker; E03.9 Hypothyroidism, unspecified; F34.1 Dysthymic disorder; E78.5 Hyperlipidemia, unspecified; R50.9 Fever, unspecified
CPT/HCPCS: 80053; 83615; 84560; 85025; 86706; 86803; 87081; 87340; J9310; J0171; J1100; J1200; J2175; J2405; J3480; J7040; J7050; J9033